=== PATIENT | male | born 1955 | race Caucasian/White ===

== ENCOUNTER → 2023-12-31 09:13 | Outpatient (REF) | payer OTHER, SELFPAY | LOC: RAD 09:13 | PROVIDERS: ATTENDING PHYSICIAN Family Medicine | DX: M54.50 Low back pain, unspecified (principal) | CPT/HCPCS: 72110 ==

== ENCOUNTER → 2024-06-19 11:01 | Outpatient (REF) | payer OTHER, SELFPAY | LOC: RCS 11:01 | PROVIDERS: ATTENDING PHYSICIAN Internal Medicine Cardiovascular Disease; FAMILY PHYSICIAN Family Medicine | DX: I48.0 Paroxysmal atrial fibrillation (principal) | CPT/HCPCS: 93306 ==

== ENCOUNTER 2024-12-15 03:21 | Emergency (ER) | payer OTHER, SELFPAY ==
[2024-12-15] VITALS (8 sets, daily range): BP systolic 117–159; BP diastolic 53–82; BMI 36.5
[2024-12-15 04:01] LABS: % Basophils 0.4 % (0-2); % Eosinophils 1.1 % (0-6); % Immature Granulocytes 0.8 % (0-0.5); % Lymphocytes 15.8 % (20.5-51.1); % Monocytes 12.6 % (1.7-9.3); % Neutrophils 69.3 % (42.2-75.2); Absolute Basophils 0.1 10^3/uL (0-0.2); Absolute Eosinophils 0.1 10^3/uL (0-0.7); Absolute Immature Granulocytes 0.1 10^3/uL (0-0.05); Absolute Lymphocytes 1.8 10^3/uL (1.2-3.4); Absolute Monocytes 1.4 10^3/uL (0.1-0.6); Absolute Neutrophils 7.8 10^3/uL (1.4-6.5); Hematocrit 47.8 % (39.0-52.0); Hemoglobin 16.2 g/dL (13.0-18.0); Mean Corp Hgb Conc. 33.9 g/dL (33.0-37.0); Mean Corpuscular Hgb 30.9 pg (27.0-31.0); Mean Corpuscular Volume 91.2 fL (80.0-94.0); Mean Platelet Volume 10.8 fL (7.4-10.4); Nucleated Red Blood Cells % 0 % (-); Platelet Count 162 10^3/uL (130-400); Red Blood Cell Count 5.24 10^6/uL (4.70-6.10); Red Cell Dist. Width 13.4 % (11.5-14.5); White Blood Cell Count 11.3 10^3/uL (4.8-10.8)
[2024-12-15 04:18] LABS: ALT (SGPT) 44 U/L (0-50); AST (SGOT) 34 U/L (17-59); Albumin 3.7 g/dl (3.5-5.0); Alkaline Phosphatase 165 U/L (38-126); Blood Urea Nitrogen 20 mg/dl (9-20); Calcium 8.9 mg/dl (8.4-10.2); Carbon Dioxide 26 mmol/L (22-30); Chloride 110 mmol/L (98-107); Glucose 121 mg/dl (70-99); Potassium 4.3 mmol/L (3.5-5.1); Sodium 142 mmol/L (135-145); Total Bilirubin 0.6 mg/dl (0.2-1.3); Total Protein 6.6 g/dl (6.3-8.2); eGFR > 60.00
[2024-12-15 04:23] LABS: Troponin I < 0.012 ng/ml
--- NOTE | 2024-12-15 06:25 | ED.GENMED ---
History of Present Illness
General
Chief Complaint: Cardiac Symptoms
Source: patient
Time Seen by Provider: 12/15/24 06:03
History of Present Illness
History of Present Illness:
69-year-old male presents to the emergency room complaining of of feeling short of breath and having pain in his anterior chest with deep inspiration. Symptoms have been present for the past couple days. Patient has diagnosis of non-small cell
lung carcinoma for which she had surgery and lymph node excision. He is not currently receiving any chemo or radiation. He describes his disease is 'in remission'. Patient denies any fever sore throat or headache. Patient took a home COVID test
which was positive.
Past History
Past History
ED Past Medical History: Arrthythmia, HTN, Hypercholesterolemia and NIDDM
ED Past Surgical History: None
Social History
Tobacco: Non-smoker
Alcohol: None
Drug: None
Personal:
Living: with family
Phy Exam
Physical Exam
Physical Exam:
General: Awake, Alert, Oriented X3. No acute distress.
Vitals: Mildly tachycardic
Head: Atraumatic
Eyes: Pupils equal, EOMI
Throat: Airway intact, no exudates
Neck: Trachea midline
Lungs: Clear and equal b/l
Heart: irregular rate, no murmurs
Abd: Soft, Nontender, No pulsatile mass
Neuro: Nonfocal
Skin: Warm, dry, no rash
Extremities: pulses equal b/l, 1+ edema
Course
Orders/Labs/Results
Orders:
Orders
12/15/24 03:24
Electrocardiogram (*1) Urgent
Reason for Study: Chest Pain
Cardiac Monitoring- Treatment ONCE
EKG- Treatment ONCE
IV Insert/Care/Rem.- Treatment PRN
O2 Therapy [RESP] Urgent
Titrate/Wean O2 to maintain O2 sat greater than (%): 90
Special Instructions: Maintain sats >/=90%
Pulse Ox/spot Check [RESP] Urgent
Quantity: 1
Special Instructions: ON ROOM AIR
12/15/24 03:36
Complete Blood Count/With Diff Urgent
Comprehensive Metabolic Panel Urgent
NT-proBNP Urgent
Comment: ADD ON
Troponin I Urgent
12/15/24 03:49
CXR2 [CR Chest - 2 Views ] Urgent
Comment:
Reason For Exam: covid + chest pain
12/15/24 06:24
Add On- LAB Urgent
Tests Added?: BNP
CT Chest PE Study Urgent
Comment:
Reason For Exam: pleuritic chest pain
12/15/24 06:25
Ketorolac [Toradol] 15 mg IV NOW STA
Abnormal Lab Results
12/15/24
03:36
WBC 11.3 H 10^3/uL
(4.8-10.8)
MPV 10.8 H fL
(7.4-10.4)
Abs Immat Gran (auto) 0.1 H 10^3/uL
(0-0.05)
Absolute Neuts (auto) 7.8 H 10^3/uL
(1.4-6.5)
Absolute Monos (auto) 1.4 H 10^3/uL
(0.1-0.6)
Immature Gran % 0.8 H %
(0-0.5)
Lymphocytes % 15.8 L %
(20.5-51.1)
Monocytes % 12.6 H %
(1.7-9.3)
Chloride 110 H mmol/L
(98-107)
Glucose 121 H mg/dl
(70-99)
Alkaline Phosphatase 165 H U/L
(38-126)
12/15/24 03:36
03/07/25 03:36
Vital Signs
Initial and Last Documented VS:
Initial Vital Signs
Temp Pulse Resp BP Pulse Ox
97.7 F 95 22 140/81 99
12/15/24 03:22 12/15/24 03:22 12/15/24 03:22 12/15/24 03:22 12/15/24 03:22
Last Documented Vital Signs
Temp Pulse Resp BP Pulse Ox
97.7 F 92 30 133/62 96
12/15/24 03:22 12/15/24 10:00 12/15/24 10:00 12/15/24 10:00 12/15/24 10:00
MDM/Problems Addressed
Differential Diagnosis Includes:
nstemi, pe, ptx, pneumonia, recurrence of cancer, pleurisy fro covid
MDM/Problems Addressed:
Patient presents with chest pain anterior and sharp. Worse with deep inspiration. EKG shows no acute ischemic changes. Labs here are all reassuring. CT of the chest shows a right sided pleural effusion which is moderate in size. Patient states
he has had imaging at [facility] which did demonstrate right pleural effusion. Unclear if it has gotten any larger. Recommend he follow-up with his doctors at [facility] so they can compare CAT scans. Patient feels better after dose of Toradol.
Chronic conditions affecting care: Cancer (Lung cancer)
*Radiology
Radiology exam reviewed: radiology read reviewed
*Pulse Oximetry
Patient hypoxic: no
*EKG
Interpreted by ED Provider?: Yes
Heart Rate: 90
Rate: normal
Rhythm: a-fib
QRS Pattern: normal QRS
Ischemia: non-specific ST changes
*Jewel Hole Gauger Interpretation
Rate: normal
Interpretation: abnormal
Rhythm: a-fib
*Critical Care Note
Total Time (30-74mins, 75-104mins- exclusive of procedures): Not Applicable
ED Attending Note
-
Portions of this chart may have been created with voice recognition software.� Occasional wrong word or��sound alike� substitutions may have occurred due to the inherent limitations of voice recognition software.
Discharge Plan
Departure
Patient Disposition: Home (Routine Discharge)
Date of Disposition: 12/15/24
Time of Disposition: 09:55
Patient with high blood pressure during this ER visit?: Yes
Condition: Good
Discharge Problem:
Chest pain, COVID, Pleurisy, Pleural effusion
Instructions: Chest Pain (DC), COVID-19 - ED discharge instructions, BLOOD PRESSURE, Pleurisy
Prescriptions:
No Action
atorvastatin 10 MG tablet
10 mg PO Q48H
lisinopril 5 MG tablet
5 mg PO BID
Xarelto 20 MG tablet
20 mg PO 1730
allopurinol 100 MG tablet
100 mg PO DAILY
metoprolol succinate 50 mg Tablet Extended Release 24 Hr
50 mg PO BID
Xalkori 250 mg Capsule
250 mg PO BID
loperamide 2 mg Tablet
2 mg PO Q6H PRN (Reason: diarrhea)
furosemide 20 mg Tablet
20 mg PO MOWEFR
albuterol 90 mcg/actuation Aerosol
2 mcg INHALATION Q4H PRN (Reason: SOB)
Referrals:
Manuel Rosa MD [Family Provider] -
Activity Restrictions/Additional Instructions:
You can take Tylenol for pain. Your CT scan here shows a pleural effusion which our radiologist describes as moderate but this is somewhat subjective. You should call your oncologist at [facility] and discuss the CT report with them so they can
determine if any further testing is needed.
Interventions
Interventions:
*Risk Screen - Suicide Last Done: 12/15/24 03:29
*General Assessment Last Done: 12/15/24 03:22
*Neglect/Abuse Screening Last Done: 12/15/24 03:29
*ED- Fall Risk Assessment Last Done: 12/15/24 03:27
*ED COVID-19 Vaccine History Last Done: 12/15/24 03:28
*Nursing Disposition Last Done: 12/15/24 10:15
ED- Cardiac Assessment Last Done: 12/15/24 07:53
ED- Pulmonary Assessment Last Done: 12/15/24 07:53
Discharge Date and Time
Discharge Date/Time: 12/15/24 10:20
Print Language: AZERI
[2024-12-15] MEDS: TORADOL 15 MG IV (07:15)
[2024-12-15 07:26] LABS: NT-proBNP 261 pg/ml
== END 2024-12-15 10:20 | disposition home or self-care (01) ==
LOC: EMR 03:21
PROVIDERS: Student in an Organized Health Care Education/Training Program; EMERGENCY PHYSICIAN Emergency Medicine; FAMILY PHYSICIAN Family Medicine
DX: U07.1 COVID-19 (principal); J90 Pleural effusion, not elsewhere classified; R07.89 Other chest pain
CPT/HCPCS: 99285; 96374; 71046; 71275; 80053; 83880; 84484; 85025; 93005; Q9967

== ENCOUNTER → 2025-02-05 09:28 | Outpatient (REF) | payer OTHER, SELFPAY | LOC: RAD 09:28 | PROVIDERS: ATTENDING PHYSICIAN Family Medicine | DX: C34.31 Malignant neoplasm of lower lobe, right bronchus or lung (principal) | CPT/HCPCS: 71250; 74176 ==

== ENCOUNTER 2025-02-07 10:49 | Emergency (ER) | payer OTHER, SELFPAY ==
[2025-02-07 10:54] VITALS: BP 135/80
[2025-02-07 11:22] VITALS: BP 123/79
[2025-02-07 11:42] LABS: % Basophils 0.6 % (0-2); % Eosinophils 2.2 % (0-6); % Immature Granulocytes 0.8 % (0-0.5); % Lymphocytes 15.2 % (20.5-51.1); % Neutrophils 71.2 % (42.2-75.2); Absolute Basophils 0.1 10^3/uL (0-0.2); Absolute Eosinophils 0.2 10^3/uL (0-0.7); Absolute Immature Granulocytes 0.1 10^3/uL (0-0.05); Absolute Lymphocytes 1.3 10^3/uL (1.2-3.4); Absolute Monocytes 0.9 10^3/uL (0.1-0.6); Absolute Neutrophils 6.1 10^3/uL (1.4-6.5); Hemoglobin 14.8 g/dL (13.0-18.0); Mean Corp Hgb Conc. 34.4 g/dL (33.0-37.0); Mean Corpuscular Hgb 30.4 pg (27.0-31.0); Mean Corpuscular Volume 88.3 fL (80.0-94.0); Mean Platelet Volume 10.3 fL (7.4-10.4); Nucleated Red Blood Cells % 0 % (-); Platelet Count 165 10^3/uL (130-400); Red Blood Cell Count 4.87 10^6/uL (4.70-6.10); Red Cell Dist. Width 13.4 % (11.5-14.5); White Blood Cell Count 8.6 10^3/uL (4.8-10.8)
[2025-02-07 11:43] LABS: Urine Albumin 2+ (Neg - Trace); Urine Bilirubin Negative (Negative); Urine Character Clear (Clear); Urine Color Yellow; Urine Glucose Negative (Negative); Urine Ketone Negative (Negative); Urine Leukocyte Negative (Negative); Urine Nitrite Negative (Negative); Urine Occult Blood 1+ (Negative); Urine Specific Gravity 1.025 (<1.030); Urine Urobilinogen Negative (Neg - 1+)
--- NOTE | 2025-02-07 11:48 | ED.GENMED ---
History of Present Illness
<Delvis Martin PA-C - Last Filed: 02/07/25 14:21>
General
Chief Complaint: Abdominal Pain
Source: patient and records
Time Seen by Provider: 02/07/25 11:00
History of Present Illness
History of Present Illness:
69-year-old male with past medical history of permanent A-fib, stage IV lung cancer (in remission), hypertension, hyperlipidemia, wgh-ohspfch-rwhqfequp diabetes who has been dealing with left flank/abdominal discomfort for 1 week, had outpatient CT
scan done 2 days ago which did not yield any pathologies, spoke with primary care provider on the phone today as well as his oncology team and was recommended to come to the ER for further evaluation. Patient denies any fevers, chills, rigors,
urinary symptoms, bowel changes, nausea, vomiting or any other concerns. He also notes he has not noticed any rashes to the affected area. States that he does have some mild chronic pain to the right flank which he states was related to his lung
resection but that this pain feels different
Past History
<Delvis Martin PA-C - Last Filed: 02/07/25 14:21>
Past History
ED Past Medical History: Arrthythmia, HTN, Hypercholesterolemia and NIDDM
ED Past Surgical History: Appendectomy, Orthopedic, Tonsilectomy and Other (Lung resection)
Social History
Tobacco: Non-smoker
Alcohol: None
Drug: None
Personal:
Living: with family
Review of Systems
<Delvis Martin PA-C - Last Filed: 02/07/25 14:21>
Review of Systems
All Other Systems: ROS reviewed and negative except as documented in HPI and ROS
Phy Exam
<Delvis Martin PA-C - Last Filed: 02/07/25 14:21>
Physical Exam
Physical Exam:
GENERAL: Alert , in no apparent distress, overweight
EYE: clear conjunctiva b/l
HEAD: NCAT
ENT: o/p clr, mmm.
CARDIAC: Irregularly irregular rate and rhythm
LUNGS: Clear breath sounds bilaterally, no acute respiratory distress, no wheezes/rales/rhonchi
ABDOMEN: Soft, without focal tenderness, no r/g, no cvat
NEUROLOGICAL: Alert and oriented
SKIN: Warm and dry, skin intact. No rashes
MUSCULOSKELETAL: No edema, well perfused.
PSYCH: Normal and appropriate interaction.
Scores
<Delvis Martin PA-C - Last Filed: 02/07/25 14:21>
Heart Failure Risk
Heart Failure Risk Score: Not Applicable
Heart Score for Chest Pain Patients
STEMI patient?: Not applicable
Withdrawal Assessment of Alcohol
Withdrawal Assessment Completed?: Not applicable
Course
<Delvis Maritn PA-C - Last Filed: 02/07/25 14:21>
Orders/Labs/Results
Orders:
Orders
02/07/25 11:32
Complete Blood Count/With Diff Urgent
Comprehensive Metabolic Panel Urgent
Lipase Urgent
Troponin I Urgent
Urinalysis Reflex To Culture Urgent
Date Specimen was Collected: 02/07/25
Time Specimen was Collected: 11:17
Urine Microscopic Reflex Cult Urgent
Abnormal Lab Results
02/07/25
11:32
Abs Immat Gran (auto) 0.1 H 10^3/uL
(0-0.05)
Absolute Monos (auto) 0.9 H 10^3/uL
(0.1-0.6)
Immature Gran % 0.8 H %
(0-0.5)
Lymphocytes % 15.2 L %
(20.5-51.1)
Monocytes % 10.0 H %
(1.7-9.3)
Chloride 110 H mmol/L
(98-107)
Glucose 111 H mg/dl
(70-99)
Total Protein 5.9 L g/dl
(6.3-8.2)
Albumin 3.3 L g/dl
(3.5-5.0)
Ur Occult Blood Reflex 1+ A
(Negative)
Urine RBC 3-6 A /HPF
(0-2)
Urine Albumin (Reflex) 2+ A
(Neg - Trace)
02/07/25 11:32
02/07/25 11:32
Vital Signs
Initial and Last Documented VS:
Initial Vital Signs
Temp Pulse Resp BP Pulse Ox
98.0 F 82 16 135/80 97
02/07/25 10:54 02/07/25 10:54 02/07/25 10:54 02/07/25 10:54 02/07/25 10:54
Last Documented Vital Signs
Temp Pulse Resp BP Pulse Ox
98.0 F 89 13 111/67 98
02/07/25 10:54 02/07/25 13:00 02/07/25 13:00 02/07/25 13:00 02/07/25 12:45
[place];Gordon Jones, DO - Last Filed: 02/07/25 15:29>
Orders/Labs/Results
Orders:
Orders
02/07/25 11:32
Complete Blood Count/With Diff Urgent
Comprehensive Metabolic Panel Urgent
Lipase Urgent
Troponin I Urgent
Urinalysis Reflex To Culture Urgent
Date Specimen was Collected: 02/07/25
Time Specimen was Collected: 11:17
Urine Microscopic Reflex Cult Urgent
Abnormal Lab Results
02/07/25
11:32
Abs Immat Gran (auto) 0.1 H 10^3/uL
(0-0.05)
Absolute Monos (auto) 0.9 H 10^3/uL
(0.1-0.6)
Immature Gran % 0.8 H %
(0-0.5)
Lymphocytes % 15.2 L %
(20.5-51.1)
Monocytes % 10.0 H %
(1.7-9.3)
Chloride 110 H mmol/L
(98-107)
Glucose 111 H mg/dl
(70-99)
Total Protein 5.9 L g/dl
(6.3-8.2)
Albumin 3.3 L g/dl
(3.5-5.0)
Ur Occult Blood Reflex 1+ A
(Negative)
Urine RBC 3-6 A /HPF
(0-2)
Urine Albumin (Reflex) 2+ A
(Neg - Trace)
02/07/25 11:32
02/07/25 11:32
Vital Signs
Initial and Last Documented VS:
Initial Vital Signs
Temp Pulse Resp BP Pulse Ox
98.0 F 82 16 135/80 97
02/07/25 10:54 02/07/25 10:54 02/07/25 10:54 02/07/25 10:54 02/07/25 10:54
Last Documented Vital Signs
Temp Pulse Resp BP Pulse Ox
98.0 F 89 13 111/67 98
02/07/25 10:54 02/07/25 13:00 02/07/25 13:00 02/07/25 13:00 02/07/25 12:45
<Delvis Martin PA-C - Last Filed: 02/07/25 14:21>
MDM/Problems Addressed
Differential Diagnosis Includes:
Renal/ureteral colic, muscular etiology, atypical ACS presentation, overall minimal concern for any GI pathology given recent CT scan 2 days ago which did not yield any acute abnormalities
MDM/Problems Addressed:
69-year-old male presenting to the emergency department for evaluation of left-sided flank and abdominal pain, had CT scan done here as an outpatient which did not yield any acute abnormalities. Primary care and patient's oncology team recommended
he come to the ER for further evaluation. No fevers, patient is otherwise very well-appearing. Has a history of chronic A-fib, doubt atypical ACS presentation but given continued symptoms will check troponin EKG. Chemistry and urine ordered.
Will touch base with patient's primary to discuss further workup planning and likely need for continued outpatient management
Chronic conditions affecting care: Cancer
<Delvis Martin PA-C - Last Filed: 02/07/25 14:21>
*Pulse Oximetry
Patient hypoxic: no
*Critical Care Note
Total Time (30-74mins, 75-104mins- exclusive of procedures): Not Applicable
Data Reviewed
Review of Other/Old Records Reveals: Records and Radiology Studies
<Delvis Martin PA-C - Last Filed: 02/07/25 14:21>
Patient Management
Discussion with other providers: PCP
Escalation/DeEscalation of care consider admission/obs:
Patient's workup is largely unremarkable for any acute pathologies. I did reach out to patient's primary care provider via [facility] text and notified them of workup and that patient would need further outpatient monitoring/evaluation. Patient
advised on return precautions to the ER but otherwise stable for discharge home.
ED Attending Note
<Delvis Martin PA-C - Last Filed: 02/07/25 14:21>
-
Portions of this chart may have been created with voice recognition software.� Occasional wrong word or��sound alike� substitutions may have occurred due to the inherent limitations of voice recognition software.
<Gordon Jones DO - Last Filed: 02/07/25 15:29>
ED Attending Note
Patient seen and examined by attending physician: Yes
ED Attending Note:
I have reviewed and agree with history and treatment plan by José Miguel Mindlin. My exam reveals 69-year-old male no acute distress. Suspect likely musculoskeletal cause of flank pain. CT chest abdomen pelvis no acute findings.
Discharge Plan
Departure
Patient Disposition: Home (Routine Discharge)
Date of Disposition: 02/07/25
Time of Disposition: 12:52
Patient with high blood pressure during this ER visit?: No
Discharge Problem:
Left flank pain
Instructions: Abdominal Pain
Prescriptions:
No Action
atorvastatin 10 MG tablet
10 mg PO Q48H
lisinopril 5 MG tablet
5 mg PO BID
Xarelto 20 MG tablet
20 mg PO 1730
allopurinol 100 MG tablet
100 mg PO DAILY
metoprolol succinate 50 mg Tablet Extended Release 24 Hr
50 mg PO BID
Xalkori 250 mg Capsule
250 mg PO BID
loperamide 2 mg Tablet
2 mg PO Q6H PRN (Reason: diarrhea)
furosemide 20 mg Tablet
20 mg PO MOWEFR
albuterol 90 mcg/actuation Aerosol
2 mcg INHALATION Q4H PRN (Reason: SOB)
Referrals:
Manuel Rosa MD [Family Provider] -
Interventions
Interventions:
*Risk Screen - Suicide Last Done: 02/07/25 11:35
*General Assessment Last Done: 02/07/25 11:35
*Neglect/Abuse Screening Last Done: 02/07/25 11:35
*ED- Fall Risk Assessment Last Done: 02/07/25 11:35
*ED COVID-19 Vaccine History Last Done: 02/07/25 11:35
*Nursing Disposition Last Done: 02/07/25 13:17
HK-Fpbazh-Xknaqgypgs Assessment Last Done: 02/07/25 11:35
Discharge Date and Time
Discharge Date/Time: 02/07/25 13:18
Print Language: IRISH
[2025-02-07 11:58] LABS: Urine Mucus Few
[2025-02-07 11:59] LABS: Urine White Cell 0-2 /HPF (0-5)
[2025-02-07 12:00] VITALS: BP 109/68
[2025-02-07 12:04] LABS: ALT (SGPT) 36 U/L (0-50); AST (SGOT) 35 U/L (17-59); Albumin 3.3 g/dl (3.5-5.0); Alkaline Phosphatase 119 U/L (38-126); Blood Urea Nitrogen 18 mg/dl (9-20); Calcium 8.9 mg/dl (8.4-10.2); Carbon Dioxide 22 mmol/L (22-30); Chloride 110 mmol/L (98-107); Glucose 111 mg/dl (70-99); Lipase 191 U/L (23-300); Potassium 4.2 mmol/L (3.5-5.1); Sodium 138 mmol/L (135-145); Total Bilirubin 0.5 mg/dl (0.2-1.3); Total Protein 5.9 g/dl (6.3-8.2); eGFR > 60.00
[2025-02-07 12:07] LABS: Troponin I < 0.012 ng/ml
[2025-02-07 13:00] VITALS: BP 111/67
== END 2025-02-07 13:18 | disposition home or self-care (01) ==
LOC: EMR 10:49
PROVIDERS: Physician Assistant Medical; EMERGENCY PHYSICIAN Emergency Medicine; FAMILY PHYSICIAN Family Medicine
DX: R10.9 Unspecified abdominal pain (principal); I48.21 Permanent atrial fibrillation; I10 Essential (primary) hypertension; E78.00 Pure hypercholesterolemia, unspecified; E11.9 Type 2 diabetes mellitus without complications; Z90.49 Acquired absence of other specified parts of digestive tract
CPT/HCPCS: 99283; 80053; 81003; 81015; 83690; 84484; 85025

== ENCOUNTER → 2025-02-09 11:30 | Outpatient (REF) | payer OTHER, SELFPAY | LOC: RAD 11:30 | PROVIDERS: ATTENDING PHYSICIAN Family Medicine | DX: M54.6 Pain in thoracic spine (principal) | CPT/HCPCS: 72072 ==

== ENCOUNTER 2025-03-18 04:52 | Inpatient (IN) | payer OTHER, SELFPAY ==
[2025-03-17 21:27] VITALS: BP 168/99; BMI 38.5
[2025-03-17 21:30] VITALS: BP 168/99
[2025-03-17 22:00] VITALS: BP 147/87
[2025-03-17] MEDS: REGLAN 10 MG IV (23:18)
[2025-03-17 23:34] LABS: % Basophils 0.4 % (0-2); % Eosinophils 0.4 % (0-6); % Immature Granulocytes 0.8 % (0-0.5); % Lymphocytes 12.3 % (20.5-51.1); % Monocytes 8.2 % (1.7-9.3); % Neutrophils 77.9 % (42.2-75.2); Absolute Immature Granulocytes 0.1 10^3/uL (0-0.05); Absolute Lymphocytes 1.3 10^3/uL (1.2-3.4); Absolute Monocytes 0.9 10^3/uL (0.1-0.6); Absolute Neutrophils 8.4 10^3/uL (1.4-6.5); Hematocrit 49.1 % (39.0-52.0); Hemoglobin 16.7 g/dL (13.0-18.0); Mean Corpuscular Volume 88.2 fL (80.0-94.0); Mean Platelet Volume 11.4 fL (7.4-10.4); Nucleated Red Blood Cells % 0 % (-); Platelet Count 177 10^3/uL (130-400); Red Blood Cell Count 5.57 10^6/uL (4.70-6.10); Red Cell Dist. Width 13.6 % (11.5-14.5); White Blood Cell Count 10.8 10^3/uL (4.8-10.8)
[2025-03-17 23:43] LABS: ALT (SGPT) 41 U/L (0-50); AST (SGOT) 41 U/L (17-59); Albumin 4.2 g/dl (3.5-5.0); Alkaline Phosphatase 121 U/L (38-126); Blood Urea Nitrogen 16 mg/dl (9-20); Calcium 9.5 mg/dl (8.4-10.2); Carbon Dioxide 28 mmol/L (22-30); Chloride 107 mmol/L (98-107); Estimated Creatinine Clearance 90 ml/min; Glucose 134 mg/dl (70-99); Lipase 109 U/L (23-300); Potassium 4.5 mmol/L (3.5-5.1); Sodium 142 mmol/L (135-145); Total Bilirubin 0.8 mg/dl (0.2-1.3); Total Protein 7.3 g/dl (6.3-8.2); eGFR > 60.00
--- NOTE | 2025-03-17 23:48 | ED.GENMED ---
History of Present Illness
General
Chief Complaint: Change in Mental Status
Source: patient
Exam Limitations: none
Time Seen by Provider: 03/17/25 22:17
Nursing documentation reviewed up to this point in time: agreed with
History of Present Illness
History of Present Illness:
69-year-old male past medical history of A-fib hypertension hyperlipidemia, diabetes presenting to the emergency department with concerns of altered mental status not acting self according to the seems to be clammy also had an episode of
vomiting. Recently had COVID.
Past History
Past History
ED Past Medical History: Arrthythmia, HTN, Hypercholesterolemia and NIDDM
ED Past Surgical History: Appendectomy, Orthopedic, Tonsilectomy and Other (Lung resection)
Social History
Tobacco: Non-smoker
Alcohol: None
Drug: None
Personal:
Living: with family
Review of Systems
Review of Systems
Allergies reviewed?: Yes
All Other Systems: ROS reviewed and negative except as documented in HPI and ROS
Phy Exam
Physical Exam
Physical Exam:
GENERAL: Alert , in no apparent distress
EYE: pupils equal and reactive
NECK: Supple, no significant adenopathy.
ENT: o/p clr, mmm.
CARDIAC: Regular rate and rhythm .
LUNGS: Clear breath sounds bilaterally, no acute respiratory distress, no wheezes/rales/rhonchi
ABDOMEN: Soft, without focal tenderness, no r/g, no cvat
NEUROLOGICAL: Alertno focal neuro deficits
SKIN: Warm and dry, skin intact.
MUSCULOSKELETAL: No edema, well perfused.
PSYCH: Normal and appropriate interaction.
Course
Orders/Labs/Results
Orders:
Orders
03/17/25 21:38
EKG [Electrocardiogram (*1)] Urgent
Reason for Study: Atrial Fibrillation
03/17/25 21:39
EKG- Treatment ONCE
03/17/25 22:27
CT Head W/o Iv Contrast Urgent
Comment:
Reason For Exam: headache
Urinalysis Reflex To Culture Urgent
Date Specimen was Collected: 03/18/25
Time Specimen was Collected: 00:14
Metoclopramide [Reglan] 10 mg IV NOW STA
03/17/25 23:20
Complete Blood Count/With Diff Urgent
Comprehensive Metabolic Panel Urgent
Lipase Urgent
TSH Reflex To Free T4 Urgent
03/18/25 00:15
Urine Drug Abuse Screen Routine
Date Specimen was Collected: 03/18/25
Time Specimen was Collected: 08:12
Urine Microscopic Reflex Cult Urgent
03/18/25 04:25
COVID-19 Antigen Stat
Source: Nasal Swab
03/18/25 04:34
Admit/Transfer Patient As Directed
Co-Sign Provider:
Level of Care: Inpatient admission
Assign to:: Telemetry
Physician / Group: Satya
Diagnosis: Altered mental status
Reason for Telemetry: Syncope
Date to Stop Telemetry: 03/20/25
Time to Stop Telemetry: 11:00
Reason for Hospitalization: Altered mental status
Expected length of stay greater than two midnights?: Yes
ELOS- Estimated Length of Stay in days: 2
I certify the patient meets the requirements for IP care: Yes
PRN Pain Medication Management As Directed
May give lesser potent ordered pain med per pt: Yes
preference::
Protocol:: Medication orders for pain may be administered in a
manner that supports deferring to patient preference
when the pt is:
- Requesting an ordered lesser potent pain medication.
Least to most potent pain medications are defined
as: acetaminophen < NSAID < tramadol < opioids
(morphine, oxycodone, hydromorphone).
- Requesting a lesser dose of the same medication IF
ORDERED.
- Requesting a less intrusive route of administration
if both routes are prescribed by the provider (PO <
IV).
03/18/25 04:36
Code Status As Directed
Resuscitation Status: Full Code
03/18/25 Breakfast
Cholesterol Lowering
At Your Request: Limited, Repair Tech Required
Cholesterol Lowering: Sodium, 2 Gram
03/18/25 07:33
Acetaminophen [Tylenol] 650 mg PO Q4HPRN PRN
Ondansetron Injectable [Zofran] 4 mg IV Q6HPRN PRN
Polyethylene Glycol Powder [Miralax] 17 grams PO DAILYPRN PRN
03/18/25 07:33
Consult Notification Routine
Specialty to Notify: Neurology
Date consulting provider notified: 03/18/25
Time consulting provider notified: 07:55
Notified:: Provider
Comment: TT'd Physician Obn-Call(Mary Alice)
NEUROLOGY CONSULT Routine
Consulting Provider: Luis A Wheat
Was physician already notified: No
Reason for consult: altered ms uncertain etiology
VTE Contraindication Routine
VTE Mechanical Device Contraindication: Medical Contraindication
Pharmocologic Contraindication: Medical Contraindication
MRI Brain [MR Brain Without Contrast] Routine
Comment:
Reason For Exam: rule out multifocal embolic cva, metastatic lesion
Recent pill cam endoscopy?: No
Activity As Directed
Activity Level: With Assistance
Neurological Checks As Directed
Frequency: Per unit guidelines
Orthostatic Vital Signs As Directed
Orthostatic VS Frequency: Daily
Vital Signs As Directed
Frequency: Per unit guidelines
Pulse Ox/spot Check [RESP] Routine
Quantity: 1
03/18/25 08:00
Allopurinol [Zyloprim] 100 mg PO DAILY
Atorvastatin [Lipitor] 10 mg PO Q48H
Lisinopril [Zestril] 5 mg PO BID
Metoprolol Xl [Toprol Xl] 50 mg PO BID
03/18/25 17:30
Rivaroxaban [Xarelto] 20 mg PO 1730
03/18/25 20:00
crizotinib [Xalkori] See Dose Instructions PO BID
03/19/25 05:40
Ammonia IN AM
Complete Blood Count/No Diff IN AM
ESR [Erythrocyte Sed Rate] IN AM
Hemoglobin A1c [Glycohemoglobin (HgbA1c)] IN AM
Prothrombin Time IN AM
03/19/25 05:41
Basic Metabolic Panel IN AM
Cardiovascular Evaluation IN AM
Ceruloplasmin [S] IN AM
HIV 4th Generation [HIV Combo] IN AM
Lyme Progressive IN AM
Magnesium IN AM
Monotest IN AM
RPR [Syphilis/T. pallidum Ab Reflex] IN AM
Vitamin B12 IN AM
03/20/25 11:00
DC Protocol for Telemetry ONCE
Abnormal Lab Results
03/17/25 03/18/25
23:20 00:15
MPV 11.4 H fL
(7.4-10.4)
Abs Immat Gran (auto) 0.1 H 10^3/uL
(0-0.05)
Absolute Neuts (auto) 8.4 H 10^3/uL
(1.4-6.5)
Absolute Monos (auto) 0.9 H 10^3/uL
(0.1-0.6)
Immature Gran % 0.8 H %
(0-0.5)
Neutrophils % 77.9 H %
(42.2-75.2)
Lymphocytes % 12.3 L %
(20.5-51.1)
Glucose 134 H mg/dl
(70-99)
Ur Occult Blood Reflex 1+ A
(Negative)
Urine Albumin (Reflex) 2+ A
(Neg - Trace)
06/07/25 23:20
03/17/25 23:20
Vital Signs
Initial and Last Documented VS:
Initial Vital Signs
Temp Pulse BP Pulse Ox
98.6 F 116 168/99 98
03/17/25 21:27 03/17/25 21:27 03/17/25 21:27 03/17/25 21:27
Last Documented Vital Signs
Temp Pulse Resp BP Pulse Ox
98.6 F 83 18 153/75 96
03/19/25 03:16 03/19/25 03:16 03/19/25 03:16 03/19/25 03:16 03/19/25 03:16
MDM/Problems Addressed
MDM/Problems Addressed:
69-year-old male presenting to the emergency department with concerns of not acting his normal self. He also appeared clammy at her vomited 1 time today. On arrival tachycardic otherwise vital signs normal patient no distress but does seem to
be repeating himself he is able to answer all basic questions. Labs unremarkable urinalysis normal. Unclear cause of altered mental status. Patient is repetitively asking questions and clearly confused considering this profound change plan to
admit for further assessment.
*Critical Care Note
Total Time (30-74mins, 75-104mins- exclusive of procedures): Not Applicable
ED Attending Note
-
Portions of this chart may have been created with voice recognition software.� Occasional wrong word or��sound alike� substitutions may have occurred due to the inherent limitations of voice recognition software.
Discharge Plan
Departure
Patient Disposition: Admit
Admit to: Telemetry
Admit to doctor: Satya
Presentation/result/management discussed w/ accepting MD/DO: Hospitalist
Patient with high blood pressure during this ER visit?: No
Condition: Good
Covid-19: Not Applicable
Discharge Problem:
AMS (altered mental status)
Interventions
Interventions:
*Risk Screen - Suicide Last Done: 03/17/25 21:27
*General Assessment Last Done: 03/17/25 21:27
*Neglect/Abuse Screening Last Done: 03/17/25 21:27
*ED- Fall Risk Assessment Last Done: 03/17/25 21:27
*ED COVID-19 Vaccine History Last Done: 03/17/25 21:27
*Nursing Disposition Last Done: 03/18/25 07:25
ED- Neurological Assessment Last Done: 03/18/25 07:00
ED- Cardiac Assessment Last Done: 03/18/25 07:00
ED Swallowing Screen Last Done: 03/18/25 00:00
Discharge Date and Time
Discharge Date/Time: 03/18/25 07:25
[2025-03-18] VITALS (10 sets, daily range): BP systolic 126–149; BP diastolic 49–88; BMI 36.1
[2025-03-18 00:13] LABS: TSH Reflex To Free T4 1.12 uIU/ml (0.47-4.68)
[2025-03-18 00:31] LABS: Urine Albumin 2+ (Neg - Trace); Urine Bilirubin Negative (Negative); Urine Character Clear (Clear); Urine Color Amber; Urine Glucose Negative (Negative); Urine Ketone Negative (Negative); Urine Leukocyte Negative (Negative); Urine Nitrite Negative (Negative); Urine Occult Blood 1+ (Negative); Urine Urobilinogen Negative (Neg - 1+)
[2025-03-18 00:44] LABS: Urine Granular Cast 0-2 /LPF (0); Urine Red Blood Cell 0-2 /HPF (0-2); Urine White Cell None Seen /HPF (0-5)
--- NOTE | 2025-03-18 03:50 | HPS.HSE ---
Family Physician
-
Family Physician: NOT KNOW UNKNOWN - PT DOES
Chief Complaint
-
Altered mental status
History of Present Illness
This is a 69-year-old with past medical history of metastatic small cell lung cancer status post biopsy and lymph node dissection and in remission for 25 years, hypertension, hyperlipidemia, atrial fibrillation on anticoagulation with rivaroxaban
presenting to the emergency department with altered mental status.
Spouse able to provide history although patient cannot provide some history as well. He apparently was at a gathering about 2 weeks ago. After coming home he contracted COVID-19. Patient said that he completed a course of treatment with a
molnupiravir 2 days ago. He has not had any fevers or chills. He has not been coughing. He denies any shortness of breath. He denies any abdominal pain. According to spouse over the last 3 to 4 days he has been having memory lapses. He has
been having confusion. Today the patient was sitting on his table when he said he was unable to see clearly. He also said he was going to pass out. His spouse came to him to bring him from falling. He did not have a syncopal episode. He did
become nauseous and had 1 episode of vomiting. Patient reports intermittent headache and spouse has given him Tylenol during the day. He denies any focal weakness. He denies any focal numbness or tingling. He denies having any back pain. He
denies any stiff neck. He denies any changes to the color of his urine skin or eyes.
Patient denies any new medications ordered and the medication for COVID-19 diarrhea just finished.
On arrival in the emergency department he was afebrile, blood pressure was 144/74 with a pulse of 95 satting 99% on room air.
CBC was completely normal. Electrolytes BUN/creatinine were completely normal. UA was negative. TSH was normal. Head CT shows no acute interval changes. Chest x-ray clear.
Medical History
Past Medical History
Past Medical History: Reports Other
Additional Past Medical History:
Proximal atrial fibrillation
Hypertension
Hyperlipidemia
Grb-lmkmalk-zszfkybxl diabetes
Past Surgical History: Reports Other
Additional Past Surgical History:
Appendectomy
Tonsillectomy
History of lung resection
Social History
Tobacco: Former Smoker
Alcohol: None
Drug: None
Personal:
Living: With Family
Employment: Employed
Family History
Family History: Not pertinent
Allergies / Home Medications
Allergies reflects when Allergies were last updated in [employer].
Home Medications with original date entered in [employer]
Allergy/Medication List:
Allergies
Allergy/AdvReac Type Severity Reaction Status Date / Time
codeine AdvReac nervous/anx Verified 02/07/25 10:56
ious
Home Medications
atorvastatin 10 mg tablet 10 mg PO Q48H 05/29/19
lisinopril 5 mg tablet 5 mg PO BID 05/29/19
rivaroxaban 20 mg tablet (Xarelto) 20 mg PO 1730 08/01/19
allopurinol 100 mg tablet 100 mg PO DAILY 03/25/22
metoprolol succinate 50 mg tablet,extended release 24 hr 50 mg PO BID 06/03/22
crizotinib 250 mg capsule (Xalkori) 250 mg PO BID 08/31/22
Review of Systems
-
History Source: Patient and Family
Constitutional: Reports No Symptoms
EENT: Reports No Symptoms
Respiratory: Reports No Symptoms
Cardiac: Reports No Symptoms
Abdomen/GI: Reports Nausea and Vomiting
: Reports No Symptoms
Musculoskeletal: Reports No Symptoms
Skin: Reports No Symptoms
Neurological: Reports Other (confusion, memory difficulty)
Endocrine: Reports No Symptoms
Hematologic/Lymphatic: Reports No Symptoms
Psych: Reports No Symptoms
Physical Exam
Vital Signs
Vital Signs
Temp Pulse Resp BP Pulse Ox
98.6 F 95 17 144/74 94
03/17/25 21:27 03/18/25 03:00 03/18/25 03:00 03/18/25 03:00 03/18/25 03:00
Physical Exam
General: Well Developed, Well Nourished, No Apparent Distress and Comfortable
HEENT: NormoCephalic, Anicteric, Moist mucous membranes, Atraumatic, PERRLA and Neck Nontender; No Pharyngeal Erythema or Oxygen
Respiratory: Clear
Cardiac: S1/S2 and Irregular Rhythm
Breast: Deferred by me
GI: Soft, Non Tender, Non Distended and Normal Bowel Sounds
Rectal: Deferred by Provider
Genito-urinary: Deferred by me
Musculoskeletal: No Clubbing, No Cyanosis and No Edema
Skin: Warm
Neuro: Alert, Oriented (Oriented to person and place but not year) and Nonfocal/grossly intact
Hematologic/Lymphatic: No Lymphadenopathy
Psych: Calm
Laboratory Results
-
03/17/25 23:20
03/17/25 23:20
Laboratory Results
Total Bilirubin 0.8 mg/dl (0.2-1.3) 03/17/25 23:20
AST 41 U/L (17-59) 03/17/25 23:20
ALT 41 U/L (0-50) 03/17/25 23:20
Alkaline Phosphatase 121 U/L (38-126) 03/17/25 23:20
Lipase 109 U/L (23-300) 03/17/25 23:20
Data Reviewed
-
CT Scan: Report Reviewed by me
Lab Data: Labs Reviewed by me
Old Records: Reviewed
Impression/Plan
-
IMPRESSION:
69-year-old with past medical history significant for atrial fibrillation on rivaroxaban, hyperlipidemia, hypertension, history of non-small cell lung cancer status post lymph node dissection and currently in remission on crizotinib, prior tobacco
use, no alcohol or drug use presents to the emergency department with few days of increasing altered mental status. He has had memory difficulties. He seems to have clouded sensorium. He answers mostly appropriately but is slower to respond. He
has no focal neurological deficits. There are no meningeal signs. Today felt lightheaded and nauseous and felt he was going to pass out but did not. In the emergency department he is hemodynamically stable afebrile. Vital signs are unremarkable.
Electrolytes BUN/creatinine LFTs were all normal. CBC was normal. UA was negative. He has just completed a course of molnupiravir for COVID-19 infection and spouse reports that the patient has had recurrent episodes of COVID infection x 4. On
my examination is nonfocal, slow to respond and slight slowing of his speech. Differential diagnosis here includes small bowel multifocal embolic infarct, toxic metabolic encephalopathy from an infection versus an encephalitis.
PLAN:
1. Altered mental status.
- admit to telemetry for now
- MRI in am to rule out multifocal infarcts or new metastatic disease
- rule out ongoing COVID 19 infection
- checking rpr, lyme screen, EBV, HIV
- UDS
- normal tsh, normal lfts
- if above are all normal will need LP
- no indication for abx at this time
- neurology consultation
2. AFIB - Rate controlled afib currently
- continue Xarelto
- continue metoprolol
3. Presyncope - No syncopal episode, HD stable. rate controlled afib
- telemetry
- check orthostatics
- continue his lisinopril and metoprolol for now
Will continue his usual medications
DVT PPX- on Xarelto
Code status - Full Code
[2025-03-18 04:51] LABS: COVID-19 Antigen Negative (Negative)
[2025-03-18] MEDS: ZYLOPRIM 100 MG PO (09:07)
[2025-03-18] MEDS: LIPITOR 10 MG PO (09:07)
[2025-03-18] MEDS: TOPROL XL 50 MG PO ×2 (09:07→20:00)
[2025-03-18] MEDS: ZESTRIL 5 MG PO ×2 (09:07→20:01)
[2025-03-18 09:11] LABS: Amphetamines Negative (Negative); Barbiturates Negative (Negative); Benzodiazepines Negative (Negative); Buprenorphine Negative (Negative); Cocaine Negative (Negative); Marijuana Negative (Negative); Methadone Negative (Negative); Methamphetamines Negative (Negative); Opiates Negative (Negative); Phencyclidine Negative (Negative); Tricyclic Antidepressants Negative (Negative)
--- NOTE | 2025-03-18 10:13 | W.PN.UPDATE ---
Update Note
Progress Note Update
And examined remains confused thinks it is 1971. States that he is at [facility] in [place]
Telemetry reviewed and atrial fibrillation, confirmed by palpation. Check EKG
MRI pending. CT reviewed without acute intracranial abnormality. Neurology consulted
Hypertension continue antihypertensives
Atrial fibrillation continue metoprolol and Xarelto
--- NOTE | 2025-03-18 14:05 | CM ---
Initial assessment completed with pt at bedside.
Pt is a 69yr old male admitted with change in mental status.
At baseline, pt lives with his in a 1 story home with 5ste.
Pt is indep at baseline with mobility and ADLs.
Pt has a cane and a built in shower bench and a bar.
Pt has had VN after a workman's comp event last year, but does not recall the company.
Pt has no hx of SNF
PCP; Dr. Rosa
Pharm; [facility]
PLAN; TBD
--- NOTE | 2025-03-18 17:57 | CON.NEURO ---
Neuro Assessment/Plan
Assessment
Brain MRI imgs rev'd with patient and family, numerous emboli in the posterior circulation distribution most notably left cerebellum, left polly, right thalamus, and other areas
CTA ordered and reviewed with patient and family, pointing out bilateral V4 occlusion, basilar artery supplied retrograde.
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
and just adding ASA 81 and increasing Lipitor. Their questions re: stenting, patients treated medically have a 30 day stroke risk of 6% vs patient 14% with a stent; if he were to stroke on medical therapy there is no consensus regarding stenting,
however I would still recommend continuing medical therapy given the lower stroke risk
while no cognitive areas were affected, he does have baseline debility and I suspect cognitive decline, which has been decompensated from the stroke
the above was discussed with family, explained multiple times that I would not recommend stenting him under any circumstances based on evidence and his clinical condition if he were to stroke again
Plan
ASA 81
Lipitor 80
Xarelto
Consultation
Order
Date of Consultation: 03/18/25
Requesting Provider: Ihsan Mendez
Reason for Consult: Stroke
Subjective/Objective
Subjective Data
Date of Service: March 18, 2025
from h&p:
This is a 69-year-old with past medical history of metastatic small cell lung cancer status post biopsy and lymph node dissection and in remission for 25 years, hypertension, hyperlipidemia, atrial fibrillation on anticoagulation with rivaroxaban
presenting to the emergency department with altered mental status.
Spouse able to provide history although patient cannot provide some history as well. He apparently was at a gathering about 2 weeks ago. After coming home he contracted COVID-19. Patient said that he completed a course of treatment with a
molnupiravir 2 days ago. He has not had any fevers or chills. He has not been coughing. He denies any shortness of breath. He denies any abdominal pain. According to spouse over the last 3 to 4 days he has been having memory lapses. He has
been having confusion. Today the patient was sitting on his table when he said he was unable to see clearly. He also said he was going to pass out. His spouse came to him to bring him from falling. He did not have a syncopal episode. He did
become nauseous and had 1 episode of vomiting. Patient reports intermittent headache and spouse has given him Tylenol during the day. He denies any focal weakness. He denies any focal numbness or tingling. He denies having any back pain. He
denies any stiff neck. He denies any changes to the color of his urine skin or eyes.
Objective Data
Vital Signs
Temp Pulse Resp BP Pulse Ox
36.9 C 109 18 131/78 98
03/18/25 11:47 03/18/25 11:47 03/18/25 11:47 03/18/25 11:47 03/18/25 11:47
Lab Results
03/17/25 23:20
03/17/25 23:20
Sodium 142 mmol/L (135-145) 03/17/25 23:20
Potassium 4.5 mmol/L (3.5-5.1) 03/17/25 23:20
BUN 16 mg/dl (9-20) 03/17/25 23:20
Glucose 134 mg/dl (70-99) H 03/17/25 23:20
Calcium 9.5 mg/dl (8.4-10.2) 03/17/25 23:20
Ur Buprenorphine Negative (Negative) 03/18/25 00:15
Patient Allergies
codeine Adverse Reaction (Verified 02/07/25 10:56)
nervous/anxious
CVA Assessment
NIH Stroke Score
Level of Consciousness: 0 - Alert
LOC Questions: 1-Answers one correctly
LOC Commands: 0-Performs both correctly
Best Horizontal Gaze: 0-Normal
Visual Fuentes: 0=Normal, no visual loss
Facial Palsy: 2=Partial paralysis
Motor - Right Arm: 0=No drift 10 seconds
Motor - Left Arm: 0=No drift 10 seconds
Motor - Right Le-No drift 5 seconds
Motor - Left Le-No drift 5 seconds
Limb Ataxia: 0-Absent
Sensation: 0-Normal
Best Language: 1-Mild aphasia
Dysarthria: 1-Mild slurring
Extinction and Inattention: 0-No abnormality
NIH Total Score:: 5
Tenecteplase Contraindications
Reasons for NON-Tx with Thrombolytics ABSOLUTE Exclusions: Time-out of window
Physical Exam
-
Awake and alert, slow to process, mild aphasia, mild dysarthria
left facial droop
full strength b/l UE/LE
sensation intact to touch/pin
Medications
-
Active Medications
Generic Name Dose Route Start Last Admin
Trade Name Freq PRN Reason Stop Dose Admin
Acetaminophen 650 mg 03/18/25 07:33
Acetaminophen 325 Mg Tablet PO 04/15/25 07:32
Q4HPRN PRN
mild pain/PRADHAN/temp> 100.4F
Allopurinol 100 mg 03/18/25 08:00 03/18/25 09:07
Allopurinol 100 Mg Tablet PO 04/15/25 07:59 100 mg
DAILY ЕЛЕНА Administration
Atorvastatin Calcium 10 mg 03/18/25 08:00 03/18/25 09:07
Atorvastatin (Lipitor) 10 Mg Tablet PO 04/15/25 07:59 10 mg
Q48H ЕЛЕНА Administration
Lisinopril 5 mg 03/18/25 08:00 03/18/25 09:07
Lisinopril 5 Mg Tablet PO 04/15/25 07:59 5 mg
BID ЕЛЕНА Administration
Metoprolol Succinate 50 mg 03/18/25 08:00 03/18/25 09:07
Metoprolol 50 Mg Extended Release Tablet PO 04/15/25 07:59 50 mg
BID ЕЛЕНА Administration
Crizotinib [Xalkori] 0 mg 03/18/25 20:00
250 Mg Capsule Po PO 04/15/25 19:59
Bid BID ЕЛЕНА
Ondansetron HCl 4 mg 03/18/25 07:33
Ondansetron 4 Mg/2 Ml Vial IV 04/15/25 07:32
Q6HPRN PRN
nausea and vomiting
Polyethylene Glycol 17 grams 03/18/25 07:33
Polyethylene Glycol Powder 17 Grams Packet PO 04/15/25 07:32
DAILYPRN PRN
constipation
Rivaroxaban 20 mg 03/18/25 17:30
Rivaroxaban 20 Mg Tablet PO 04/15/25 17:29
1730 ЕЛЕНА
Sodium Chloride 0 flush 03/18/25 06:00
Sodium Chloride 0.9% (Flush) Syringe IV 04/15/25 05:59
PER PROTOCOL ЕЛЕНА
Home Medications
�Medication �Instructions �Recorded
atorvastatin 10 mg tablet 10 mg PO Q48H 05/29/19
lisinopril 5 mg tablet 5 mg PO BID 05/29/19
rivaroxaban 20 mg tablet (Xarelto) 20 mg PO 1730 08/01/19
allopurinol 100 mg tablet 100 mg PO DAILY 03/25/22
metoprolol succinate 50 mg 50 mg PO BID 06/03/22
tablet,extended release 24 hr
crizotinib 250 mg capsule (Xalkori) 250 mg PO BID 08/31/22
albuterol 90 mcg/actuation aerosol 2 mcg inhalation Q4H PRN SOB 12/15/24
inhaler
furosemide 20 mg tablet 20 mg PO MOWEFR 12/15/24
loperamide 2 mg tablet 2 mg PO Q6H PRN diarrhea 12/15/24
[2025-03-18] MEDS: ASPIR LOW (ENTERIC COATED) 81 MG PO (18:18)
[2025-03-18] MEDS: XARELTO 20 MG PO (18:18)
[2025-03-18] MEDS: LIPITOR 80 MG PO (18:18)
[2025-03-18] MEDS: NON-FORMULARY ITEM 250 MG PO (20:01)
[2025-03-19] VITALS (9 sets, daily range): BP systolic 90–153; BP diastolic 44–108
[2025-03-19 05:55] LABS: Hematocrit 43.7 % (39.0-52.0); Hemoglobin 14.7 g/dL (13.0-18.0); Mean Corp Hgb Conc. 33.6 g/dL (33.0-37.0); Mean Corpuscular Hgb 30.1 pg (27.0-31.0); Mean Corpuscular Volume 89.4 fL (80.0-94.0); Mean Platelet Volume 10.3 fL (7.4-10.4); Platelet Count 142 10^3/uL (130-400); Red Blood Cell Count 4.89 10^6/uL (4.70-6.10); Red Cell Dist. Width 13.3 % (11.5-14.5); White Blood Cell Count 11.1 10^3/uL (4.8-10.8)
[2025-03-19 06:08] LABS: PT 27.9 Sec (11.4-14.6)
[2025-03-19 06:20] LABS: Ammonia < 9 umol/L (9-30)
[2025-03-19 06:27] LABS: Blood Urea Nitrogen 15 mg/dl (9-20); Calcium 8.8 mg/dl (8.4-10.2); Carbon Dioxide 28 mmol/L (22-30); Chloride 106 mmol/L (98-107); Estimated Creatinine Clearance 99 ml/min; Glucose 119 mg/dl (70-99); HDL Cholesterol 31 mg/dl; LDL Cholesterol, Calculated 28 mg/dl; Magnesium 2.1 mg/dl (1.6-2.3); Potassium 3.7 mmol/L (3.5-5.1); Sodium 139 mmol/L (135-145); Total Cholesterol 84 mg/dl (50-199); Triglyceride 127 mg/dl (10-149); Very Low Density Lipoprotein 25 mg/dl (0-30); eGFR > 60.00
[2025-03-19 06:41] LABS: Erythrocyte Sed Rate 6 mm/hour (0-20)
[2025-03-19 07:08] LABS: Vitamin B12 648 pg/ml (239-931)
[2025-03-19 07:56] LABS: Monotest Negative (Negative)
[2025-03-19] MEDS: NON-FORMULARY ITEM 250 MG PO ×2 (08:29→20:19)
[2025-03-19] MEDS: ZYLOPRIM 100 MG PO (08:29)
[2025-03-19] MEDS: ASPIR LOW (ENTERIC COATED) 81 MG PO (08:29)
[2025-03-19] MEDS: ZESTRIL 5 MG PO ×2 (08:32→20:19)
[2025-03-19] MEDS: TOPROL XL 50 MG PO ×2 (08:32→20:20)
--- NOTE | 2025-03-19 09:03 | W.PN.NEURO.1 ---
Today's Communication / Plan
-
Discontinue ASA 81 due to increased risk of hemorrhagic conversion
Return atorvastatin from Lipitor 80 milligrams to dosing of 10 mg due to significantly low cholesterol level
Continue rivaroxaban
Consider Neurosurgical intervention if declining function with evidence of herniation
Neuro Assessment/Plan
Assessment
Brain MRI numerous emboli in the posterior circulation distribution most notably left cerebellum, left polly, right thalamus, and other areas
CTA bilateral V4 occlusion, basilar artery supplied retrograde.
Has cognitive baseline debility decompensated from the stroke
Plan
Discontinue ASA 81 due to increased risk of hemorrhagic conversion
Return atorvastatin from Lipitor 80 milligrams to dosing of 10 mg due to significantly low cholesterol level
Continue rivaroxaban
Consider Neurosurgical intervention if declining function with evidence of herniation
Will follow.
Subjective/Objective
Subjective Data
Date of Service: March 19, 2025
Objective Data
Vital Signs
Temp Pulse Resp BP Pulse Ox
36.6 C 89 16 121/79 97
03/19/25 07:04 03/19/25 08:32 03/19/25 07:04 03/19/25 08:32 03/19/25 07:04
Lab Results
03/19/25 05:40
03/19/25 05:41
PT 27.9 Sec (11.4-14.6) H 03/19/25 05:40
INR 2.60 03/19/25 05:40
Sodium 139 mmol/L (135-145) 03/19/25 05:41
Potassium 3.7 mmol/L (3.5-5.1) 03/19/25 05:41
BUN 15 mg/dl (9-20) 03/19/25 05:41
Glucose 119 mg/dl (70-99) H 03/19/25 05:41
Calcium 8.8 mg/dl (8.4-10.2) 03/19/25 05:41
LDL Cholesterol, Calc 28 mg/dl 03/19/25 05:41
Vitamin B12 648 pg/ml (429-771) 03/19/25 05:41
Ur Buprenorphine Negative (Negative) 03/18/25 00:15
Patient Allergies
codeine Adverse Reaction (Verified 02/07/25 10:56)
nervous/anxious
Review of Systems
-
Unable to obtain full review of systems at this time due to: Lethargy
History Source: Patient
All other systems: Reviewed and negative
Physical Exam
-
General: No Apparent Distress and Appears Stated Age
Eyes: Round OU, [place] Conjunctivae and No Ptosis; Negative Able to visualize OU
HEENT: Anicteric and Moist Mucous Membranes
Neck: Full Range of Motion
Respiratory: No Dyspnea
Cardiac: No JVD
GI: Non-distended
Skin: Unremarkable
Extremities: No Clubbing, No Cyanosis and No Edema
Psych: Unable to Assess
Extended Neurological Exam
Mood & Affect: Unable to Assess
Attention Span & Concentration: Awake, Unable to Perform 2 Step Request and Other (Unable to perform single step requests); Negative Alert or Interactive
Memory: Unable to Assess
Tremor: Hand Tremor Absent and Head Tremor Absent
Involuntary Movement: None
Speech: Severely Reduced Output
Cranial Nerve II: Left Eye: Pupillary Reactivity Unremarkable, Pupillary Size Unremarkable and Unable to Assess Visual Fuentes
Cranial Nerve II: Right Eye: Pupillary Reactivity Unremarkable, Pupillary Size Unremarkable and Unable to Assess Visual Fuentes
Cranial Nerves III, IV, : Extraocular Movement: Unable to Assess
Cranial Nerve VII: Facial Symmetry: Normal Facial Symmetry
Cranial Nerve VIII: Hearing: Unremarkable Hearing to Normal Conversational Volume
Cranial Nerves IX, X: Palate Movement: Unable to Assess
Cranial Nerve XI: Shoulder Shrug: Unable to Assess
Cranial Nerve XII: Tongue Protusion: Unable to Assess
Muscle Strength, Overall: Spontaneously Moves (All extremities)
Muscle Bulk & Tone: Bulk Unremarkable and Tone Unremarkable
Pronator Drift: Unable to Assess
Cold Sensation: Unable to Assess
Vibration Sensation: Unable to Assess
Coordination: Unable to Assess
Gait & Station: Unable to Assess
Data Reviewed
-
MRI Head: Report Reviewed
Labs: Report Reviewed
Lipid Profile: Report Reviewed
Reviewed with: Physician, Nurse and Family
Old Records: Summarized
--- NOTE | 2025-03-19 09:57 | W.PN.HOSP.TC ---
Today's Communication/Plan
-
Neurologic monitoring in IMU.
Echocardiogram rule out embolic source
Chest x-ray, right chest ultrasound to assess pleural effusion.
Assessment / Plan
Assessment / Plan
Impression:
Presentation with altered mental status.
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
Large right pleural effusion on CT
Conditions prior to admission:
Chronic atrial fibrillation
Anticoagulation with Xarelto
Essential hypertension.
Lung adenocarcinoma status post lymph node dissection on Xalkori
History of malignant pleural effusion right
Plan:
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
Patient presents with confusion and disorientation.
Remains lethargic
CT scan of the head with no acute abnormalities per
MRI of the brain findings consistent with multiple acute infarcts, largest in the left cerebellum. Other sites including bilateral occipital lobes, polly, left thalamus.
CTA Occlusions of the distal V4 segments of the bilateral vertebral arteries from just beyond the branches of the bilateral posterior inferior cerebellar arteries to the origin of the basilar artery. Alternatively, it may just be the distal left V4
segment that is occluded, with the right V4 segment being hypoplastic with drainage into the right PICA and an absent distal course, which is an anatomic variant.
Large right pleural effusion.
Continue close neurologic monitoring transferring to IMU open
Given posterior infarcts particularly largest in the left cerebellum, remains at high risk for cerebral edema with herniation
Discussed with neurology
Continue close neurologic monitoring. If further neurologic deterioration, consider neurosurgical evaluation.
Further workup with echocardiogram.
Currently on Xarelto. With the assumption of embolic CVA, no apparent benefit for antiplatelet therapy
Could not rule out hypercoagulable state given lung carcinoma.
Chronic atrial fibrillation
Continue rate control with metoprolol 50 mg p.o. twice daily.
Anticoagulation with Xarelto
Essential hypertension.
Continue metoprolol, Zestril
Dyslipidemia, Lipitor increased from 10 to 80 mg
Lung adenocarcinoma.
History of lymph node dissection.
Currently on Xalkori.
'If above related hypercoagulable state reason for multifocal embolic CVA
History of right malignant pleural effusion.
Recurrent and moderate to large in size right pleural effusion incidentally noted on CTA.
Respiratory status stable.
Chest x-ray
Right chest ultrasound with consideration of thoracentesis
Consider CT of the chest post-thoracentesis (if amenable)
Anticipated Discharge: > 48 hours
Subjective/Interval History
-
Date of Service: March 19, 2025
Objective Data
-
Labs:
Laboratory Results
03/19/25 03/19/25
05:40 05:41
WBC 11.1 H
Hgb 14.7
Hct 43.7
Plt Count 142
PT 27.9 H
INR 2.60
Sodium 139
Potassium 3.7
Chloride 106
Carbon Dioxide 28
BUN 15
Creatinine 1.0
Glucose 119 H
Calcium 8.8
Vital Signs:
Vital Signs
Temp Pulse Resp BP Pulse Ox
97.9 F 89 16 121/79 97
03/19/25 07:04 03/19/25 08:32 03/19/25 07:04 03/19/25 08:32 03/19/25 07:04
I&O
03/18/25 03/19/25 03/20/25
06:59 06:59 06:59
Intake Total 720 / 720
Output Total 400 / 400
Balance 320 / 320
Physical Exam
-
General: Well Developed and No Apparent Distress
HEENT: Normocephalic, Atraumatic and Moist Mucous Membranes
Respiratory: Clear to Auscultation
Cardiac: Regular Rhythm and S1/S2; Negative Murmur, Rub or Gallop
GI: Soft, Nontender, Nondistended and Normal Bowel Sounds; Negative Organomegaly
Rectal: Deferred by Provider
Musculoskeletal: No Clubbing, No Cyanosis and No Edema
Skin: Negative Rash
Neuro: Awake, Alert, Oriented (Name only) and Other (Lethargic)
[2025-03-19 10:07] LABS: Glycohemoglobin (HgbA1c) 5.4 % (4.0-5.6)
--- NOTE | 2025-03-19 13:32 | PTCARENOTE ---
Patient drowsy but arousable. NIH is 6, see documentation. Patient to be moved to IMU per Dr. Infante. VSS. This RN assisted patient to CAT scan. updated on room change. Report given to IMU RN Sona.
[2025-03-19 13:57] LABS: Lyme Antibody Screen, EIA Negative (Negative)
--- NOTE | 2025-03-19 13:59 | CM ---
CM following re: discharge planning.
Reviewed pt's chart, met with pt.
Per MD, neurologic monitoring in IMU, continue supportive care.
PT and OT will evaluate the pt when clinically appropriate to determine a level of care at discharge.
D/C plan: uncertain at this time and will de[end on pt's progress.
--- NOTE | 2025-03-19 14:00 | PTCARENOTE ---
Pt received from . Aox1, drowsy and lethargic. NIH of 8. Afib on tele monitor. at bedside, updated at length on plan of care. Bed alarm in place for safety.
[2025-03-19 14:48] LABS: B.E. 4.8 mmol/L; HCO3 28.2 mmol/L (21-28); O2 Saturation % 98.5 % (94-98); PCO2 37 mmHg (35-48); PO2 139 mmHg (83-108); pH 7.49 (7.35-7.45)
--- NOTE | 2025-03-19 17:30 | PTCARENOTE ---
Pt much more alert. Able to converse with and this RN.
--- NOTE | 2025-03-19 17:42 | PTCARENOTE ---
Pt passed bedside swallow test.
[2025-03-19] MEDS: XARELTO 20 MG PO (18:12)
[2025-03-19] MEDS: LIPITOR 10 MG PO (18:12)
[2025-03-19 22:28] LABS: Glucose - Point of Care 106 mg/dl (70-99)
[2025-03-20] VITALS (15 sets, daily range): BP systolic 98–129; BP diastolic 55–80; PULSE 87; O2SAT 94
--- NOTE | 2025-03-20 03:47 | PTCARENOTE ---
Pt NIH score 6. Neuro checks Q4H. Pt aaox1. No urine output this shift so far. Bladder scan @0100 showed 225ml in bladder. Will reasess around 0600. VSS. Pt resting comfortably in bed. Care ongoing.
[2025-03-20 06:47] LABS: Urine Albumin 1+ (Neg - Trace); Urine Bilirubin Negative (Negative); Urine Character Clear (Clear); Urine Color Yellow; Urine Glucose Negative (Negative); Urine Ketone Negative (Negative); Urine Leukocyte Negative (Negative); Urine Nitrite Negative (Negative); Urine Occult Blood 4+ (Negative); Urine Urobilinogen Negative (Neg - 1+)
[2025-03-20 07:26] LABS: Urine Bacteria Few (Negative)
[2025-03-20 08:07] LABS: Glucose - Point of Care 110 mg/dl (70-99)
[2025-03-20] MEDS: NON-FORMULARY ITEM 250 MG PO ×2 (08:13→19:23)
[2025-03-20] MEDS: ZYLOPRIM 100 MG PO (08:14)
[2025-03-20] MEDS: TOPROL XL 50 MG PO ×2 (08:14→19:24)
[2025-03-20] MEDS: ZESTRIL 5 MG PO ×2 (08:14→19:24)
--- NOTE | 2025-03-20 11:03 | W.PN.HOSP.TC ---
Today's Communication/Plan
-
Continue neurologic monitoring
Continuing Xarelto.
PT assessment.
Assessment / Plan
Assessment / Plan
Impression:
Presentation with altered mental status.
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
Large right pleural effusion on CT
Conditions prior to admission:
Chronic atrial fibrillation
Anticoagulation with Xarelto
Essential hypertension.
Lung adenocarcinoma status post lymph node dissection on Xalkori
History of malignant pleural effusion right
Plan:
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
CT scan of the head with no acute abnormalities per
MRI of the brain findings consistent with multiple acute infarcts, largest in the left cerebellum. Other sites including bilateral occipital lobes, polly, left thalamus.
CTA Occlusions of the distal V4 segments of the bilateral vertebral arteries from just beyond the branches of the bilateral posterior inferior cerebellar arteries to the origin of the basilar artery. Alternatively, it may just be the distal left V4
segment that is occluded, with the right V4 segment being hypoplastic with drainage into the right PICA and an absent distal course, which is an anatomic variant.
Large right pleural effusion.
Echocardiogram with preserved biventricular function and no evidence of cardioembolic source.
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 At this point no clear indication for DELANO
Remains lethargic with right facial droop, mild unchanged over the last 24 hours.
ABG not consistent with CO2 retention
Monitor neurologic status closely and while on anticoagulation.
Repeat imaging if significant change
Currently on Xarelto. With the assumption of embolic CVA, no apparent benefit for antiplatelet therapy
Could not rule out hypercoagulable state given lung carcinoma.
Chronic atrial fibrillation
Continue rate control with metoprolol 50 mg p.o. twice daily.
Anticoagulation with Xarelto
Essential hypertension.
Continue metoprolol, Zestril
Dyslipidemia, Lipitor increased from 10 to 80 mg
Lung adenocarcinoma.
History of lymph node dissection.
Currently on Xalkori.
'If above related hypercoagulable state reason for multifocal embolic CVA
History of right malignant pleural effusion.
Recurrent and moderate to large in size right pleural effusion incidentally noted on CTA.
Respiratory status stable.
Chest x-ray
Right chest ultrasound with small right pleural effusion
Stable respiratory status with no requirements for supplemental oxygen.
Anticipated Discharge: 24 - 48 hours
Subjective/Interval History
-
Date of Service: March 20, 2025
Objective Data
-
Vital Signs:
Vital Signs
Temp Pulse Resp BP Pulse Ox
97.8 F 79 18 98/56 94
03/20/25 07:05 03/20/25 10:00 03/20/25 10:00 03/20/25 10:00 03/20/25 08:00
I&O
03/19/25 03/20/25 03/21/25
06:59 06:59 06:59
Intake Total 720 / 720 240 / 240
Output Total 400 / 400 500 / 500
Balance 320 / 320 -260 / -260
Physical Exam
-
General: Well Developed and No Apparent Distress
HEENT: Normocephalic, Atraumatic and Moist Mucous Membranes
Respiratory: Clear to Auscultation
Cardiac: Regular Rhythm and S1/S2; Negative Murmur, Rub or Gallop
GI: Soft, Nontender, Nondistended and Normal Bowel Sounds; Negative Organomegaly
Rectal: Deferred by Provider
Musculoskeletal: No Clubbing, No Cyanosis and No Edema
Skin: Negative Rash
Neuro: Awake, Alert, Oriented (Name only) and Other (Lethargic)
--- NOTE | 2025-03-20 11:18 | PTOTSP ---
MASTER POLICE DETECTIVE Evaluation
Mild signs of oral dysphagia without overt signs of pharyngeal dysphagia.
Mild dysarthria but 100% intelligible to unfamiliar listener.
Quick Aphasia Battery Form 1 = 7.03 with moderate deficits in receptive and expressive language and relatively spared repetition. Suspect visual deficits acutely exacerbating severity of score.
Cognitive linguistic deficits noted (i.e., changes to orientation, concrete thinking, decreased short term recall). Further evaluation warranted.
Recommend:
1. IDDSI 7 Regular, Thin
2. Medications as best tolerated
3. Supervision and assistance as need with PO intake
4. Strategies: slow rate with small sips/bites, check for pocketing, alternate sips/bites
5. Dysphagia tx for instruction in compensations. Further speech/language/cognitive evaluation tx at the acute care level and after D/C.
--- NOTE | 2025-03-20 11:37 | W.PN.NEURO.1 ---
Today's Communication / Plan
-
From neurological standpoint, okay to downgrade patient's level of care as the patient is now outside of initial 72 hours of stroke onset with posterior circulation lesion of significant size
Neuro Assessment/Plan
Assessment
Brain MRI numerous emboli in the posterior circulation distribution most notably left cerebellum, left polly, right thalamus, and other areas
CTA bilateral V4 occlusion, basilar artery supplied retrograde.
Has cognitive baseline debility decompensated from the stroke
Plan
Return atorvastatin from Lipitor 80 milligrams to dosing of 10 mg due to significantly low cholesterol level
Continue rivaroxaban
Consider Neurosurgical intervention if declining function with evidence of herniation
From neurological standpoint, okay to downgrade patient's level of care as the patient is now outside of initial 72 hours of stroke onset with posterior circulation lesion of significant size
Will follow.
Subjective/Objective
Subjective Data
Date of Service: March 20, 2025
Patient reports no significant changes in symptoms
Objective Data
Vital Signs
Temp Pulse Resp BP Pulse Ox
36.6 C 79 18 98/56 94
03/20/25 07:05 03/20/25 10:00 03/20/25 10:00 03/20/25 10:00 03/20/25 08:00
Lab Results
03/19/25 05:40
03/19/25 05:41
PT 27.9 Sec (11.4-14.6) H 03/19/25 05:40
INR 2.60 03/19/25 05:40
Sodium 139 mmol/L (135-145) 03/19/25 05:41
Potassium 3.7 mmol/L (3.5-5.1) 03/19/25 05:41
BUN 15 mg/dl (9-20) 03/19/25 05:41
Glucose 119 mg/dl (70-99) H 03/19/25 05:41
Calcium 8.8 mg/dl (8.4-10.2) 03/19/25 05:41
LDL Cholesterol, Calc 28 mg/dl 03/19/25 05:41
Vitamin B12 648 pg/ml (239-931) 03/19/25 05:41
Ur Buprenorphine Negative (Negative) 03/18/25 00:15
Patient Allergies
codeine Adverse Reaction (Verified 02/07/25 10:56)
nervous/anxious
Review of Systems
-
History Source: Patient
All other systems: Reviewed and negative
Neuro: Other (Diplopia with primary gaze); Negative Dizzy or Headache
Physical Exam
-
General: No Apparent Distress, Obese and Appears Stated Age
Eyes: Round OU, [place] Conjunctivae and No Ptosis
HEENT: Anicteric and Moist Mucous Membranes
Neck: Full Range of Motion
Respiratory: No Dyspnea
Cardiac: No JVD
GI: Non-distended
Skin: Unremarkable
Extremities: No Clubbing, No Cyanosis and No Edema
Psych: Intact Judgement/Insight
Extended Neurological Exam
Mood & Affect: Mood Unremarkable and Affect Unremarkable
Attention Span & Concentration: Awake, Interactive and Other (Mild difficulty with performing single step requests); Negative Alert
Memory: Vague (Recall of recent events, unclear if patient understood that he had had a stroke recently)
Tremor: Hand Tremor Absent and Head Tremor Absent
Involuntary Movement: None
Speech: Moderately Reduced Output
Cranial Nerve II: Left Eye: Pupillary Reactivity Unremarkable, Pupillary Size Unremarkable and Visual Fuentes Grossly Intact
Cranial Nerve II: Right Eye: Pupillary Reactivity Unremarkable, Pupillary Size Unremarkable and Visual Fuentes Grossly Intact
Cranial Nerves III, IV, : Extraocular Movement: Other (Restriction bilaterally of horizontal abduction)
Cranial Nerve VII: Facial Symmetry: Normal Facial Symmetry
Cranial Nerve VIII: Hearing: Unremarkable Hearing to Normal Conversational Volume
Cranial Nerves IX, X: Palate Movement: Unable to Assess
Cranial Nerve XI: Shoulder Shrug: Unable to Assess
Cranial Nerve XII: Tongue Protusion: Unable to Assess
Muscle Strength, Overall: Spontaneously Moves (All extremities)
Muscle Bulk & Tone: Bulk Unremarkable and Tone Unremarkable
Pronator Drift: Unable to Assess
Cold Sensation: Unable to Assess
Vibration Sensation: Unable to Assess
Coordination: Unable to Assess
Gait & Station: Unable to Assess
Data Reviewed
-
MRI Head: Report Reviewed and Image Reviewed
Labs: Report Reviewed
Lipid Profile: Report Reviewed
Reviewed with: Nurse and Patient
Old Records: Summarized
Past History
Past History
ED Past Medical History: Arrthythmia, CVA, HTN, Hypercholesterolemia and NIDDM
ED Past Surgical History: Appendectomy, Orthopedic, Tonsilectomy and Other (Lung resection)
Social History
Tobacco: Non-smoker
Alcohol: None
Drug: None
Personal:
Living: with family
Family History
Family History: Other (reviewed and non-contributory)
Medications
-
Medications:
Generic Name Dose Route Start Last Admin
Trade Name Freq PRN Reason Stop Dose Admin
Acetaminophen 650 mg 03/18/25 07:33
Acetaminophen 325 Mg Tablet PO 04/15/25 07:32
Q4HPRN PRN
mild pain/PRADHAN/temp> 100.4F
Allopurinol 100 mg 03/18/25 08:00 03/20/25 08:14
Allopurinol 100 Mg Tablet PO 04/15/25 07:59 100 mg
DAILY ЕЛЕНА Administration
Atorvastatin Calcium 10 mg 03/19/25 18:00 03/19/25 18:12
Atorvastatin (Lipitor) 10 Mg Tablet PO 04/16/25 17:59 10 mg
QPM ЕЛЕНА Administration
Lisinopril 5 mg 03/18/25 08:00 03/20/25 08:14
Lisinopril 5 Mg Tablet PO 04/15/25 07:59 5 mg
BID ЕЛЕНА Administration
Metoprolol Succinate 50 mg 03/18/25 08:00 03/20/25 08:14
Metoprolol 50 Mg Extended Release Tablet PO 04/15/25 07:59 50 mg
BID ЕЛЕНА Administration
Crizotinib [Xalkori] 0 mg 03/18/25 20:00 03/20/25 08:13
250 Mg Capsule Po PO 04/15/25 19:59 250 mg
Bid BID ЕЛЕНА Administration
Ondansetron HCl 4 mg 03/18/25 07:33
Ondansetron 4 Mg/2 Ml Vial IV 04/15/25 07:32
Q6HPRN PRN
nausea and vomiting
Polyethylene Glycol 17 grams 03/18/25 07:33
Polyethylene Glycol Powder 17 Grams Packet PO 04/15/25 07:32
DAILYPRN PRN
constipation
Rivaroxaban 20 mg 03/18/25 17:30 03/19/25 18:12
Rivaroxaban 20 Mg Tablet PO 04/15/25 17:29 20 mg
1730 ЕЛЕНА Administration
Sodium Chloride 0 flush 03/18/25 06:00
Sodium Chloride 0.9% (Flush) Syringe IV 04/15/25 05:59
PER PROTOCOL ЕЛЕНА
[2025-03-20 12:05] LABS: HIV Combo Negative (Negative)
[2025-03-20 14:10] LABS: Syphilis/T. pallidum Ab Reflex Negative (Negative)
--- NOTE | 2025-03-20 14:57 | CM ---
Patient with Hx lung CA with Dx CVA, pleural effusion. Room air. Receiving Xalkori (crizotinib)- brought from home per . PT/OT Evals pending. Physiatry Consult pending. Dysphagia consult pending. Nurse; assist of 2, bedrest.
Met with patient and Renetta;
discussed possible need for rehab for stroke, and that CM will assist with d/c planning process for rehab. Provide info re; Khadar CRUZ here at - they are interested in Khadar as needed.
has major concern that his Crizotinib will run out in 2 weeks, she told [employer] (the supplier) that he was in hospital and they will not resupply his meds until he goes home.
Spoke with Khadar Nolasco Liaison; discussed clinical status. She will review the referral.
Plan follow up after seen by PT, OT & Physiatry.
--- NOTE | 2025-03-20 16:07 | PTCARENOTE ---
Pt's assessment as documented. Aox1, drowsy but arousable. NIH of 6. Afib on tele monitor. Worked with PT. Tolerating diet with assistance. White draining michael colored urine. at bedside, updated at length on plan of care. Bed alarm in place
for safety.
[2025-03-20] MEDS: LIPITOR 10 MG PO (17:49)
[2025-03-20] MEDS: XARELTO 20 MG PO (17:49)
--- NOTE | 2025-03-20 20:32 | PTCARENOTE ---
NIHSS 7. Limb ataxia in L arm worse than previous shift. Pt remains, drowsy, only oriented to self, slurred/confused speech. VSS. Bed alarm in place. Neurochecks Q4H. Care ongoing.
[2025-03-21] VITALS (18 sets, daily range): BP systolic 98–142; BP diastolic 55–93; PULSE 82–132; O2SAT 95–96
[2025-03-21] MEDS: NON-FORMULARY ITEM 250 MG PO ×2 (08:32→20:04)
[2025-03-21] MEDS: ZESTRIL 5 MG PO ×2 (08:32→20:02)
[2025-03-21] MEDS: TOPROL XL 50 MG PO ×2 (08:32→20:03)
[2025-03-21] MEDS: ZYLOPRIM 100 MG PO (08:32)
--- NOTE | 2025-03-21 09:34 | W.PN.NEURO.1 ---
Today's Communication / Plan
-
Returned atorvastatin from 80 milligrams to dosing of 10 mg due to significantly low cholesterol level
Continue rivaroxaban
Neuro Assessment/Plan
Assessment
Brain MRI numerous emboli in the posterior circulation distribution most notably left cerebellum, left polly, right thalamus, and other areas
CTA bilateral V4 occlusion, basilar artery supplied retrograde.
Had cognitive baseline debility decompensated from the stroke
Plan
Returned atorvastatin from 80 milligrams to dosing of 10 mg due to significantly low cholesterol level
Continue rivaroxaban
Will follow as needed.
Subjective/Objective
Subjective Data
Date of Service: March 21, 2025
Objective Data
Vital Signs
Temp Pulse Resp BP Pulse Ox
36.3 C 78 23 121/60 96
03/21/25 07:05 03/21/25 08:32 03/21/25 06:16 03/21/25 08:32 03/21/25 08:00
Lab Results
03/19/25 05:40
03/19/25 05:41
PT 27.9 Sec (11.4-14.6) H 03/19/25 05:40
INR 2.60 03/19/25 05:40
Sodium 139 mmol/L (135-145) 03/19/25 05:41
Potassium 3.7 mmol/L (3.5-5.1) 03/19/25 05:41
BUN 15 mg/dl (9-20) 03/19/25 05:41
Glucose 119 mg/dl (70-99) H 03/19/25 05:41
Calcium 8.8 mg/dl (8.4-10.2) 03/19/25 05:41
LDL Cholesterol, Calc 28 mg/dl 03/19/25 05:41
Vitamin B12 648 pg/ml (239-931) 03/19/25 05:41
Ur Buprenorphine Negative (Negative) 03/18/25 00:15
Patient Allergies
codeine Adverse Reaction (Verified 02/07/25 10:56)
nervous/anxious
Data Reviewed
-
Labs: Report Reviewed
Old Records: Summarized
[2025-03-21 09:50] LABS: Ceruloplasmin 20 mg/dL (15-30)
--- NOTE | 2025-03-21 10:59 | PTCARENOTE ---
Assumed care of patient this morning, [facility] performed, see flowsheet. Pt awake early head start director but then during morning medications, patient had to be repeatedly engaged to stay awake. Pt's at bedside and presenting the same. Pt not waking up enough
to eat breakfast. also was at bedside and updated . New IV placed in R FA following patient pulling out IV overnight. White catheter maintained. PT currently working with patient. Assessment, care and VS as charted.
--- NOTE | 2025-03-21 11:25 | W.PN.HOSP.TC ---
Today's Communication/Plan
-
Continue neurologic monitoring.
Okay for telemetry given relatively stable neurologic status over the last 48 hours.
Continue anticoagulation
Physical therapy/physiatry consultation
Assessment / Plan
Assessment / Plan
Impression:
Presentation with altered mental status.
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
Large right pleural effusion on CT
Conditions prior to admission:
Chronic atrial fibrillation
Anticoagulation with Xarelto
Essential hypertension.
Lung adenocarcinoma status post lymph node dissection on Xalkori
History of malignant pleural effusion right
Plan:
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
CT scan of the head with no acute abnormalities per
MRI of the brain findings consistent with multiple acute infarcts, largest in the left cerebellum. Other sites including bilateral occipital lobes, polly, left thalamus.
CTA Occlusions of the distal V4 segments of the bilateral vertebral arteries from just beyond the branches of the bilateral posterior inferior cerebellar arteries to the origin of the basilar artery. Alternatively, it may just be the distal left V4
segment that is occluded, with the right V4 segment being hypoplastic with drainage into the right PICA and an absent distal course, which is an anatomic variant.
Large right pleural effusion.
Echocardiogram with preserved biventricular function and no evidence of cardioembolic source.
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 At this point no clear indication for DELANO
Remains lethargic with right facial droop, mild unchanged over the last 24 hours.
ABG not consistent with CO2 retention
Monitor neurologic status closely and while on anticoagulation.
Repeat imaging if significant change
Currently on Xarelto. With the assumption of embolic CVA, no apparent benefit for antiplatelet therapy
Could not rule out hypercoagulable state given lung carcinoma.
Chronic atrial fibrillation
Continue rate control with metoprolol 50 mg p.o. twice daily.
Anticoagulation with Xarelto
Essential hypertension.
Continue metoprolol, Zestril
Dyslipidemia, Lipitor increased from 10 to 80 mg
Lung adenocarcinoma.
History of lymph node dissection.
Currently on Xalkori.
'If above related hypercoagulable state reason for multifocal embolic CVA
History of right malignant pleural effusion.
Recurrent and moderate to large in size right pleural effusion incidentally noted on CTA.
Respiratory status stable.
Chest x-ray
Right chest ultrasound with small right pleural effusion
Stable respiratory status with no requirements for supplemental oxygen.
Anticipated Discharge: 24 - 48 hours
Subjective/Interval History
-
Date of Service: March 21, 2025
Objective Data
-
Vital Signs:
Vital Signs
Temp Pulse Resp BP Pulse Ox
97.4 F 90 18 135/93 95
03/21/25 07:05 03/21/25 10:00 03/21/25 10:00 03/21/25 10:00 03/21/25 10:05
I&O
03/20/25 03/21/25 03/22/25
06:59 06:59 06:59
Intake Total 240 / 240 480 / 480
Output Total 500 / 500 1150 / 1150
Balance -260 / -260 -670 / -670
Physical Exam
-
General: Well Developed and No Apparent Distress
HEENT: Normocephalic, Atraumatic and Moist Mucous Membranes
Respiratory: Clear to Auscultation
Cardiac: Regular Rhythm and S1/S2; Negative Murmur, Rub or Gallop
GI: Soft, Nontender, Nondistended and Normal Bowel Sounds; Negative Organomegaly
Rectal: Deferred by Provider
Musculoskeletal: No Clubbing, No Cyanosis and No Edema
Skin: Negative Rash
Neuro: Awake, Alert, Oriented (Name only) and Other (Lethargic)
--- NOTE | 2025-03-21 16:02 | PTCARENOTE ---
Upon entry to room, patient found with hand around White catheter and stat lock pulled off. Patient followed commands when told to let go of White catheter. Pt's catheter appeared to be further out than prior. Catheter balloon checked. Catheter now
with bright red blood. TT to , he advised to monitor output. No new orders at this time.
[2025-03-21] MEDS: XARELTO 20 MG PO (17:39)
[2025-03-21] MEDS: LIPITOR 10 MG PO (17:39)
[2025-03-22] VITALS (14 sets, daily range): BP systolic 109–157; BP diastolic 55–88; PULSE 2–86
--- NOTE | 2025-03-22 00:50 | PTCARENOTE ---
Care assumed of Pt from dayshift RN. Pt alert to self, opens eyes to voice, drowsy, follows simple commands. Qshift NIH check maintained. see separate intervention on worklist for full NIH assessment. White maintained, stat lock present to upper
right inner thigh. Assessment as documented. call light in reach.
--- NOTE | 2025-03-22 09:18 | PTCARENOTE ---
Upon assessment, pt minimally responsive to sternal rub. Dr. Rosales notified via TT.
--- NOTE | 2025-03-22 09:30 | VATNOTE ---
Responded to called rapid response on pt. Additional IV access established, but unable to draw lab work requested from IV. Phlebotomy stick completed for lab work.
[2025-03-22 09:40] LABS: Glucose - Point of Care 112 mg/dl (70-99)
[2025-03-22 09:48] LABS: B.E. 3.5 mmol/L; HCO3 26.8 mmol/L (21-28); O2 Saturation % 98.2 % (94-98); PCO2 36 mmHg (35-48); PO2 118 mmHg (83-108); pH 7.48 (7.35-7.45)
--- NOTE | 2025-03-22 09:50 | RR ---
A Rapid Response was called on this patient, please see Rapid Response form.
Upon assessment, pt minimally responsive to sternal rub. Dr. Rosales notified via TT. RAPID RESPONSE CALLED. ICU and physicians at bedside. Stroke alert called by WEIGHT TESTER. To CT with WEIGHT TESTER.
[2025-03-22 10:00] LABS: % Basophils 0.4 % (0-2); % Eosinophils 0.7 % (0-6); % Immature Granulocytes 0.8 % (0-0.5); % Lymphocytes 12.6 % (20.5-51.1); % Monocytes 11.5 % (1.7-9.3); Absolute Basophils 0.1 10^3/uL (0-0.2); Absolute Eosinophils 0.1 10^3/uL (0-0.7); Absolute Immature Granulocytes 0.1 10^3/uL (0-0.05); Absolute Lymphocytes 1.9 10^3/uL (1.2-3.4); Absolute Monocytes 1.8 10^3/uL (0.1-0.6); Absolute Neutrophils 11.4 10^3/uL (1.4-6.5); Hemoglobin 16.4 g/dL (13.0-18.0); Mean Corp Hgb Conc. 34.2 g/dL (33.0-37.0); Mean Corpuscular Hgb 29.9 pg (27.0-31.0); Mean Corpuscular Volume 87.4 fL (80.0-94.0); Mean Platelet Volume 10.5 fL (7.4-10.4); Nucleated Red Blood Cells % 0 % (-); Platelet Count 167 10^3/uL (130-400); Red Blood Cell Count 5.49 10^6/uL (4.70-6.10); Red Cell Dist. Width 13.1 % (11.5-14.5); White Blood Cell Count 15.4 10^3/uL (4.8-10.8)
[2025-03-22] MEDS: ZYLOPRIM PO (10:01)
[2025-03-22] MEDS: ZESTRIL PO ×2 (10:01→19:28)
[2025-03-22] MEDS: TOPROL XL PO ×2 (10:01→19:28)
[2025-03-22] MEDS: NON-FORMULARY ITEM PO ×2 (10:01→19:28)
[2025-03-22 10:13] LABS: Lactic Acid 1.2 mmol/L (0.7-2.0)
[2025-03-22 10:23] LABS: ALT (SGPT) 31 U/L (0-50); AST (SGOT) 31 U/L (17-59); Albumin 3.7 g/dl (3.5-5.0); Alkaline Phosphatase 108 U/L (38-126); Blood Urea Nitrogen 18 mg/dl (9-20); Calcium 8.8 mg/dl (8.4-10.2); Carbon Dioxide 29 mmol/L (22-30); Chloride 105 mmol/L (98-107); Estimated Creatinine Clearance 90 ml/min; Glucose 113 mg/dl (70-99); Potassium 4.6 mmol/L (3.5-5.1); Sodium 138 mmol/L (135-145); Total Bilirubin 0.9 mg/dl (0.2-1.3); Total Protein 6.6 g/dl (6.3-8.2); eGFR > 60.00
[2025-03-22 10:24] LABS: Troponin I < 0.012 ng/ml
[2025-03-22 10:28] LABS: INR 2.95; PT 31.1 Sec (11.4-14.6)
--- NOTE | 2025-03-22 10:59 | W.PN.HOSP.TC ---
Today's Communication/Plan
-
No improvement in neurologic status while patient remains lethargic and poorly arousable
Continue close neurologic monitoring.
Infectious workup.
Cardiology consultation with consideration of DELANO.
Aspiration precautions.
Empiric antibiotics
Maintain White
Discussed with nursing, neurology, patient's at the bedside
Assessment / Plan
Assessment / Plan
Impression:
Presentation with altered mental status.
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
Large right pleural effusion on CT
Conditions prior to admission:
Chronic atrial fibrillation
Anticoagulation with Xarelto
Essential hypertension.
Lung adenocarcinoma status post lymph node dissection on Xalkori
History of malignant pleural effusion right
Plan:
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
CT scan of the head with no acute abnormalities per
MRI of the brain findings consistent with multiple acute infarcts, largest in the left cerebellum. Other sites including bilateral occipital lobes, polly, left thalamus.
CTA Occlusions of the distal V4 segments of the bilateral vertebral arteries from just beyond the branches of the bilateral posterior inferior cerebellar arteries to the origin of the basilar artery. Alternatively, it may just be the distal left V4
segment that is occluded, with the right V4 segment being hypoplastic with drainage into the right PICA and an absent distal course, which is an anatomic variant.
Large right pleural effusion.
Echocardiogram with preserved biventricular function and no evidence of cardioembolic source.
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
Remains lethargic poorly responsive with no particular improvement of neurologic status over the last 24 [address] of the head scan on 03/22 with concern for new small focus of decreased density within the left thalamus which likely subacute infarct. These findings also new when compared to MRI of the brain in March 18, although no comment in comparison
with CT scan from 03/19.
Serial ABG with no evidence of respiratory acidosis/CO2 retention
Noted with elevated white count at 15, although afebrile
Acute urinary retention with White catheter placed on 03/20
Also remains aspiration risk
Continue close neurologic monitoring
Continuing Xarelto
Cardiology consultation with consideration of DELANO
Blood culture
Urine culture
Monitor temperature curve
Aspiration precautions
Chest x-ray
Empiric antibiotics will be initiated after blood culture drawn on 03/22 to cover aspiration: Unasyn
Chronic atrial fibrillation
Continue rate control with metoprolol 50 mg p.o. twice daily.
Anticoagulation with Xarelto
Essential hypertension.
Continue metoprolol, Zestril
Dyslipidemia, Lipitor increased from 10 to 80 mg
Lung adenocarcinoma.
History of lymph node dissection.
Currently on Xalkori.
'If above related hypercoagulable state reason for multifocal embolic CVA
History of right malignant pleural effusion.
Recurrent and moderate to large in size right pleural effusion incidentally noted on CTA.
Respiratory status stable.
Chest x-ray
Right chest ultrasound with small right pleural effusion
Stable respiratory status with no requirements for supplemental oxygen.
Anticipated Discharge: > 48 hours
Subjective/Interval History
-
Date of Service: March 22, 2025
Objective Data
-
Labs:
Laboratory Results
03/22/25 03/22/25
09:34 09:40
WBC 15.4 H
Hgb 16.4
Hct 48.0
Plt Count 167
PT 31.1 H
INR 2.95
APTT 39.0 H
HCO3 26.8
Sodium 138
Potassium 4.6
Chloride 105
Carbon Dioxide 29
BUN 18
Creatinine 1.1
Glucose 113 H
Calcium 8.8
Total Bilirubin 0.9
AST 31
ALT 31
Alkaline Phosphatase 108
Vital Signs:
Vital Signs
Temp Pulse Resp BP Pulse Ox
99.3 F 105 23 150/87 96
03/22/25 07:05 03/22/25 09:32 03/22/25 09:32 03/22/25 09:32 03/22/25 09:32
I&O
03/21/25 03/22/25 03/23/25
06:59 06:59 06:59
Intake Total 480 / 480
Output Total 1150 / 1150 1190 / 1190
Balance -670 / -670 -1190 / -1190
Physical Exam
-
General: Well Developed and No Apparent Distress
HEENT: Normocephalic, Atraumatic, Moist Mucous Membranes and PERRLA
Respiratory: Clear to Auscultation
Cardiac: Regular Rhythm and S1/S2; Negative Murmur, Rub or Gallop
GI: Soft, Nontender, Nondistended and Normal Bowel Sounds; Negative Organomegaly
Rectal: Deferred by Provider
Musculoskeletal: No Clubbing, No Cyanosis and No Edema
Skin: Negative Rash
Neuro: Other (Lethargic, but arousable. Following commands. GCS 6, ABDIFATAH bilaterally sluggish bilateral upper and lower extremity for movement with drift right greater than left. Aphasia, dysarthria, right facial droop)
--- NOTE | 2025-03-22 12:18 | PTCARENOTE ---
Pt in afib with bursts to the 150's. Cardiology aware.
--- NOTE | 2025-03-22 12:28 | CON.CAR ---
Addendum entered and electronically signed by Fred Gómez MD 03/22/25 21:29:
69-year-old man with adenocarcinoma of the right lung, stage IV, status post right lower lobe lobectomy in 2021, currently in remission. Known history of paroxysmal A-fib, admitted with change in mental status, recent COVID, and bilateral posterior
circulation distribution infarcts, suspected to be embolic. He is febrile, cultures are pending. Transthoracic echo without evidence of vegetation.
PMH: Adenocarcinoma of the right lower lobe of the lung with malignant pleural effusion, lobectomy 2021, in remission on Xalkori, hypertension, hyperlipidemia, history of paroxysmal atrial fibrillation
Current meds: Allopurinol 100 mg a day, Xalkori,, lisinopril 5 mg twice daily, metoprolol ER 50 mg twice daily, rivaroxaban 20 mg daily, atorvastatin 10 mg daily, ampicillin/sulbactam, metoprolol 5 IV every 6 hours, half-normal saline
109/79, pulse 134, respiratory rate 23, febrile, unresponsive, demonstrating sleep apnea, [id number] at bedside, does not appear to be in distress, and unremarkable, diminished breath sounds right base but limited exam, irregular rate and
rhythm, relatively tachycardic, currently in atrial fibrillation, abdomen very obese extremities 1+ to 2+ edema, neuro could not be tested
Chest x-ray with right pleural effusion, cardiomegaly, limited inspiration
CT 03/22/2025: small subacute infarct left thalamus new since March 19, multiple other subacute infarctions similar to MRI of brain March 18, no hemorrhage. MRI March 18: Multiple acute infarcts, largest left cerebellum, bilateral occipital lobes, polly
and right thalamus, possible small metastatic focus in the right parieto-occipital junction
Echo 03/19/2025: EF 65-70%, trace MR, mild aortic sclerosis, trace AI, dilated right ventricle, pulmonary artery pressure is 33, pericardial fat pad and ascending aorta 3.7 cm
Telemetry atrial fibrillation with RVR
White count 15, hemoglobin 16.4, BUN and creatinine are 18 and 0.1, potassium is 4.6, troponin is undetectable
ECG atrial fibrillation with rapid ventricular response, A-fib was present in April 2020
Impression:
Bihemispheric strokes, predominantly in posterior circulation distribution
Persistent/permanent atrial fibrillation
Concern for cardioembolic stroke, on Xarelto
Stage IV adenocarcinoma of the right lung, history of malignant right pleural effusion, now with recurrent effusion
Fever/clinical sepsis with negative cultures to date
Hypertension
Hyperlipidemia
Rest of impression listed below as per Yarelis Ramos. Reviewed in detail and agree, unless otherwise specified below
Plan:
He presents with bihemispheric strokes that could conceivably be cardioembolic. There is no evidence of endocarditis on transthoracic echocardiogram. It is conceivable that he has left atrial appendage thrombus, he is Xarelto failure, but this
scenario is relatively unlikely. It could still be that his strokes are atheroembolic emanating from the posterior circulation/basilar artery etc.
Given his multiple comorbidities he is a very poor candidate for transesophageal echo, and we will plan on holding off until his prognosis is better defined.
Concern regarding recurrence of malignant pleural effusion, will defer to hospitalist as to whether or not thoracentesis poor prognosis is warranted. Suspect that pleural effusion is not transudative.
His ventricular response to atrial fibrillation is suboptimal. Will increase IV metoprolol as currently he is NPO. Consider addition of digoxin.
If he remains n.p.o., may need to switch to heparin. We could consider transition to Eliquis.
However, his prognosis may be poor.
Original Note:
Consultation
Consultation Request
Date/Time Consultation Performed: 03/22/25
Requesting Provider: Dr. Rosales
Performing Provider: Yarelis Ramos PA-C for Dr. COURTNEY Gómez
Reason for Consultation: afib, CVA, eval for DELANO
Medical History
-
Chief Complaint: change in mental status
History of Present Illness:
Patient is a 69-year-old male with past medical history of stage 4 adenocarcinoma of R lung, s/p R lower lobectomy 04/2022 per considered to be in remission on chronic Xalkori (targeted immunologic therapy), followed by Dr. Christiano Hernández at [place].
Also has history of paroxysmal atrial fibrillation on chronic Xarelto, hypertension, hyperlipidemia who presented to [facility] due to confusion and change in mental status. He had recently been diagnosed with COVID approximately 10 days
ago and completed course of malnupiravir. Brain imaging showed evidence of multiple B/L infarcts in posterior circulation distribution, felt most likely to be embolic. This morning patient was a stroke alert due to increased somnolence and
underwent repeat head CT read as concern for new area of infarct, however felt to be without significant change per neurology. Patient with fever today, blood cultures pending. Cardiology consulted for evaluate for DELANO as concern for possible
marantic endocarditis. TTE without evidence of vegetations, EF preserved. provides history as patient is somnolent, snoring. She states prior to admission he was oriented x3, ambulatory around their home. Had R pleural effusion by CXR, had
prior R thoracentesis in 2021 which was positive for malignant cells.
PMH:
Stage IV adenocarcinoma of right lung status post right lower lobectomy 04/2022, considered to be in remission on chronic Xalkori, followed by [facility]
History of malignant right pleural effusion status post thoracentesis 05/2022
Paroxysmal atrial fibrillation.
Chronic Xarelto therapy
Hypertension
Hyperlipidemia
Past Medical History
Past Medical History: Other (in HPI)
Social History
Tobacco: Former Smoker
Personal:
Living: With Family
Employment: Retired
Family History
Family History: CAD, Cancer and Diabetes
Allergies / Home Medications
Allergy/AdvReac Type Severity Reaction Status Date / Time
codeine AdvReac nervous/anx Verified 02/07/25 10:56
ious
�Medication �Instructions �Recorded �Confirmed �Type
atorvastatin 10 mg tablet 10 mg PO Q48H High Cholesterol 05/29/19 03/18/25 History
lisinopril 5 mg tablet 5 mg PO BID Blood Pressure 05/29/19 03/18/25 History
rivaroxaban 20 mg tablet (Xarelto) 20 mg PO 1730 08/01/19 12/15/24 History
allopurinol 100 mg tablet 100 mg PO DAILY Gout 03/25/22 03/18/25 History
metoprolol succinate 50 mg 50 mg PO BID Heart 06/03/22 03/18/25 History
tablet,extended release 24 hr Disease/Condition
crizotinib 250 mg capsule (Xalkori) 250 mg PO BID 08/31/22 03/18/25 History
albuterol 90 mcg/actuation aerosol 2 mcg inhalation Q4H PRN SOB 12/15/24 03/18/25 History
inhaler
furosemide 20 mg tablet 20 mg PO MOWEFR Fluid 12/15/24 03/18/25 History
Retention/Swelling
loperamide 2 mg tablet 2 mg PO Q6H PRN diarrhea 12/15/24 03/18/25 History
Review of Systems
-
History Source: Family
All other systems: Negative unless noted
Physical Exam
Vital Signs
Temp Pulse Resp BP Pulse Ox
99.3 F 105 23 150/87 96
03/22/25 07:05 03/22/25 09:32 03/22/25 09:32 03/22/25 09:32 03/22/25 12:08
Lab Results
03/22/25 09:40
03/22/25 09:40
Troponin I < 0.012 ng/ml 03/22/25 09:40
Physical Exam
General: Other (somnolent, snoring. on supp O2)
HEENT: Normocephalic and Moist Mucous Membranes
Respiratory: Other (decreased BS RLB)
Cardiac: S1/S2 and Irregular Rhythm
GI: Soft, Non Tender, Non Distended and Normal Bowel Sounds
Musculoskeletal: No Clubbing, No Cyanosis and No Edema
Skin: Warm and Dry
Neuro: Other (somnolent)
Impression / Plan
-
Primary Fire Pot Operator: Dr. Roman
Assessment:
Presentation with confusion, change in mental status
Multiple posterior circulation distribution infarcts
Mod R pleural effusion
Fever
Recent covid illness
Stage IV adenocarcinoma of right lung status post right lower lobectomy 04/2022, considered to be in remission on chronic Xalkori, followed by [facility]
History of malignant right pleural effusion status post thoracentesis 05/2022
Paroxysmal atrial fibrillation
Chronic Xarelto therapy
Hypertension
Hyperlipidemia
ECHO 03/19/25: EF 65 to 70%, trace MR, mild aortic sclerosis, trace AR, dilated RV with preserved function, PAP 33 mmHg, pericardial fat pad
Plan:
- Patient presented with confusion and change in mental status and found to have multiple posterior circulation distribution infarcts. Neurology following.
- currently NPO as somnolent.
- cardiology consulted to evaluate patient for DELANO as concern for marantic endocarditis.
- at present, do not feel patient is stable for procedures, such as DELANO, as involves sedation. d/w at bedside
- as with fever this AM, would work up for infectious process and treat accordingly
- follow mental status
- HRs in afib suboptimally controlled, likely as NPO. transition from OP toprol to IV lopressor 5mg Q6H and follow. may need to consider addition of amio for rate control if remains with refractory high heart rates with borderline BPs
- eventual resume OAC, consider for IV heparin in interim when ok per neurology. if felt to be xarelto failure, would consider transition to eliquis, defer to neuro. denies missed doses as OP
- would recommend thoracentesis of R pleural effusion if/when able. he had history of malignant pleural effusion in 2021. he is followed by Dr. Christiano Hernández of [facility]
- d/w neurology, hospitalist. d/w nursing
- d/w patient and at bedside
Data Reviewed
-
EKG: Tracing Personally Visualized and interpreted
CT Scan: Report Reviewed by me
MRI: Report Reviewed by me
Medical Tests (Nuc Med, Echo etc): Report Reviewed by me
Labs: Labs Reviewed by me
Old Records: Reviewed
--- NOTE | 2025-03-22 12:36 | CM ---
Patient seen at bedside with in IMU. Patient s/p rapid and awaiting results of CT scan. Patient with concerns about getting MRI and documentation to [facility] physician, patient to complete request for medical records. Patient
also with concerns about pharmacy medications: they are on the assistance plan for chemo medications and they are stating that the medications are only for outpatient use. Patient to discuss with nursing. Patient was pending PM&R assessment
for possible [facility] admission. CM will continue to follow for discharge planning needs.
Plan; [facility] pending PM&R review.
[2025-03-22] MEDS: TYLENOL/FEVERALL 650 MG RECTAL (12:51)
[2025-03-22] MEDS: UNASYN IV ×3 (12:52→23:45)
--- NOTE | 2025-03-22 13:06 | W.PN.NEURO.1 ---
Today's Communication / Plan
-
Continue atorvastatin 10 mg daily
Continue rivaroxaban
Consider DELANO if patient is believed to have significant infectious change with possible marantic endocarditis, unlikely
Neuro Assessment/Plan
Assessment
Brain MRI numerous emboli in the posterior circulation distribution most notably left cerebellum, left polly, right thalamus, and other areas
CTA bilateral V4 occlusion, basilar artery supplied retrograde.
Repeated CT of head showed no significant change from yesterday to today despite stroke alert
Had cognitive baseline debility decompensated from the stroke
Plan
Returned atorvastatin from 80 milligrams to dosing of 10 mg due to significantly low cholesterol level
Continue rivaroxaban
Consider DELANO if patient is believed to have significant infectious change with possible marantic endocarditis, unlikely
Will follow as needed.
Subjective/Objective
Subjective Data
Date of Service: March 22, 2025
Patient unable to provide his own medical history. Called to see patient due to stroke alert activation based on the patient's reduced awareness
Objective Data
Vital Signs
Temp Pulse Resp BP Pulse Ox
37.4 C 105 23 150/87 96
03/22/25 07:05 03/22/25 09:32 03/22/25 09:32 03/22/25 09:32 03/22/25 12:08
Lab Results
03/22/25 09:40
03/22/25 09:40
PT 31.1 Sec (11.4-14.6) H 03/22/25 09:40
INR 2.95 03/22/25 09:40
APTT 39.0 Sec (23.4-35.0) H 03/22/25 09:40
Sodium 138 mmol/L (135-145) 03/22/25 09:40
Potassium 4.6 mmol/L (3.5-5.1) 03/22/25 09:40
BUN 18 mg/dl (9-20) 03/22/25 09:40
Glucose 113 mg/dl (70-99) H 03/22/25 09:40
Calcium 8.8 mg/dl (8.4-10.2) 03/22/25 09:40
LDL Cholesterol, Calc 28 mg/dl 03/19/25 05:41
Vitamin B12 648 pg/ml (239-931) 03/19/25 05:41
Ur Buprenorphine Negative (Negative) 03/18/25 00:15
Patient Allergies
codeine Adverse Reaction (Verified 02/07/25 10:56)
nervous/anxious
Review of Systems
-
Unable to obtain full review of systems at this time due to: Lethargy
History Source: Patient
All other systems: Reviewed and negative
Neuro: Other (Diplopia with primary gaze); Negative Dizzy or Headache
Physical Exam
-
General: No Apparent Distress and Appears Stated Age
Eyes: Round OU, Vamo Conjunctivae and No Ptosis
HEENT: Anicteric and Moist Mucous Membranes
Neck: Full Range of Motion
Respiratory: No Dyspnea
Cardiac: No JVD
GI: Non-distended
Skin: Unremarkable
Extremities: No Clubbing, No Cyanosis and No Edema
Psych: Unable to Assess
Extended Neurological Exam
Mood & Affect: Unable to Assess
Attention Span & Concentration: Awake, Unable to Perform 2 Step Request and Other (Unable to perform some single step requests); Negative Alert or Interactive
Memory: Unable to Assess
Tremor: Hand Tremor Absent and Head Tremor Absent
Involuntary Movement: None
Speech: Mute
Cranial Nerve II: Left Eye: Pupillary Size Unremarkable and Unable to Assess Visual Fuentes
Cranial Nerve II: Right Eye: Pupillary Size Unremarkable and Unable to Assess Visual Fuentes
Cranial Nerves III, IV, : Extraocular Movement: Unable to Assess
Cranial Nerve VII: Facial Symmetry: Normal Facial Symmetry
Cranial Nerve VIII: Hearing: Unremarkable Hearing to Normal Conversational Volume
Cranial Nerves IX, X: Palate Movement: Unable to Assess
Cranial Nerve XI: Shoulder Shrug: Unable to Assess
Cranial Nerve XII: Tongue Protusion: Unable to Assess
Muscle Strength, Overall: Spontaneously Moves (All extremities)
Muscle Bulk & Tone: Bulk Unremarkable and Tone Unremarkable
Pronator Drift: Unable to Assess
Cold Sensation: Unable to Assess
Vibration Sensation: Unable to Assess
Coordination: Unable to Assess
Gait & Station: Unable to Assess
Data Reviewed
-
CT Head: Report Reviewed and Image Reviewed
Labs: Report Reviewed
Reviewed with: Physician and Nurse
Old Records: Summarized
Past History
Past History
ED Past Medical History: Arrthythmia, CVA, HTN, Hypercholesterolemia and NIDDM
ED Past Surgical History: Appendectomy, Orthopedic, Tonsilectomy and Other (Lung resection)
Social History
Tobacco: Non-smoker
Alcohol: None
Drug: None
Personal:
Living: with family
Family History
Family History: Other (reviewed and non-contributory)
Medications
-
Medications:
Generic Name Dose Route Start Last Admin
Trade Name Freq PRN Reason Stop Dose Admin
Acetaminophen 650 mg 03/18/25 07:33
Acetaminophen 325 Mg Tablet PO 04/15/25 07:32
Q4HPRN PRN
mild pain/PRADHAN/temp> 100.4F
Acetaminophen 650 mg 03/22/25 11:39 03/22/25 12:51
Acetaminophen 650 Mg Rectal Suppository RECTAL 04/19/25 11:38 650 mg
Q6HPRN PRN Administration
temp >100.4F
Allopurinol 100 mg 03/18/25 08:00 03/22/25 10:01
Allopurinol 100 Mg Tablet PO 04/15/25 07:59 Not Given
DAILY ЕЛЕНА
Atorvastatin Calcium 10 mg 03/19/25 18:00 03/21/25 17:39
Atorvastatin (Lipitor) 10 Mg Tablet PO 04/16/25 17:59 10 mg
QPM ЕЛЕНА Administration
Ampicillin Sodium/Sulbactam 120 mls @ 240 mls/hr 03/22/25 13:00 03/22/25 12:52
Sodium 3 gm/ Sodium Chloride IV 120 mls
Q6 ЕЛЕНА Administration
Lisinopril 5 mg 03/18/25 08:00 03/22/25 10:01
Lisinopril 5 Mg Tablet PO 04/15/25 07:59 Not Given
BID ЕЛЕНА
Metoprolol Succinate 50 mg 03/18/25 08:00 03/22/25 10:01
Metoprolol 50 Mg Extended Release Tablet PO 04/15/25 07:59 Not Given
BID ЕЛЕНА
Crizotinib [Xalkori] 0 mg 03/18/25 20:00 03/22/25 10:01
250 Mg Capsule Po PO 04/15/25 19:59 Not Given
Bid BID ЕЛЕНА
Ondansetron HCl 4 mg 03/18/25 07:33
Ondansetron 4 Mg/2 Ml Vial IV 04/15/25 07:32
Q6HPRN PRN
nausea and vomiting
Polyethylene Glycol 17 grams 03/18/25 07:33
Polyethylene Glycol Powder 17 Grams Packet PO 04/15/25 07:32
DAILYPRN PRN
constipation
Rivaroxaban 20 mg 03/18/25 17:30 03/21/25 17:39
Rivaroxaban 20 Mg Tablet PO 04/15/25 17:29 20 mg
1730 ЕЛЕНА Administration
Sodium Chloride 0 flush 03/18/25 06:00
Sodium Chloride 0.9% (Flush) Syringe IV 04/15/25 05:59
PER PROTOCOL ЕЛЕНА
[2025-03-22] MEDS: LOPRESSOR 5 MG IV ×2 (14:22→18:24)
--- NOTE | 2025-03-22 14:25 | PTCARENOTE ---
Addendum entered by Sona Jimenez 03/22/25 16:41:
HR remains elevated. Cardiology notified, no further orders received at this time.
Original Note:
Pt's HR still elevated. Order received for IVP Metoprolol; administered as ordered.
[2025-03-22 14:49] LABS: Urine Albumin 2+ (Neg - Trace); Urine Bilirubin Negative (Negative); Urine Character Clear (Clear); Urine Color Yellow; Urine Glucose Negative (Negative); Urine Ketone 3+ (Negative); Urine Leukocyte 1+ (Negative); Urine Nitrite Negative (Negative); Urine Occult Blood 4+ (Negative); Urine Specific Gravity 1.025 (<1.030); Urine Urobilinogen Negative (Neg - 1+)
[2025-03-22 15:17] LABS: Urine Mucus Moderate; Urine Squamous Cell 0-2 /LPF (Few)
[2025-03-22 15:18] LABS: Urine Bacteria Many (Negative); Urine Red Blood Cell 50-60 /HPF (0-2)
[2025-03-22] MEDS: 0.45%NACL 1000 IV (15:40)
[2025-03-22] MEDS: OFIRMEV 100 IV (17:06)
[2025-03-22] MEDS: LIPITOR PO (17:21)
[2025-03-22] MEDS: XARELTO PO (17:21)
--- NOTE | 2025-03-22 17:22 | PTCARENOTE ---
Pt afebrile. IV Tylenol administered; see MAR.
[2025-03-22] MEDS: LANOXIN 250 MCG IV (21:46)
[2025-03-22] MEDS: LOPRESSOR 7.5 MG IV (23:45)
[2025-03-23] VITALS (65 sets, daily range): BP systolic 81–128; BP diastolic 48–103; BMI 36.1
--- NOTE | 2025-03-23 00:45 | PTCARENOTE ---
Pt with labored respirations, RR 40, SaO2 84% on bipap 12/8 with 2L. Increased O2 to 8L, pt currently satting 90-91%. Respiratory therapist aware.
--- NOTE | 2025-03-23 00:53 | PTCARENOTE ---
Pt with labored respirations, RR 40, SaO2 84% on bipap 14/10 with 2L. Increased O2 to 8L, pt currently satting 90-91%. Respiratory therapist aware.
[2025-03-23] MEDS: OFIRMEV 100 IV (01:52)
--- NOTE | 2025-03-23 04:31 | W.PN.UPDATE ---
Update Note
Progress Note Update
-Patient with increased of oxygen demands, desatting/ SPO2 low 80s while on Bipap/2 L of O2. O2 increased to 8L and Bipap setting adjusted. Patient continue to desatting. Nursing was able to suction large amount of secretion from the patient
mouth/throat.
-New orders of covid/flu, chest x-ray and abg.
-Covid/ flu (Neg)
-Abg result noted and patient placed on highflow.
-Chest x-ray result is pending.
-Will continue IMU level
[2025-03-23 04:46] LABS: % Basophils 0.3 % (0-2); % Immature Granulocytes 0.8 % (0-0.5); % Lymphocytes 4.5 % (20.5-51.1); % Monocytes 7.8 % (1.7-9.3); % Neutrophils 86.6 % (42.2-75.2); Absolute Basophils 0.1 10^3/uL (0-0.2); Absolute Immature Granulocytes 0.2 10^3/uL (0-0.05); Absolute Lymphocytes 0.9 10^3/uL (1.2-3.4); Absolute Monocytes 1.6 10^3/uL (0.1-0.6); Absolute Neutrophils 18.2 10^3/uL (1.4-6.5); Hematocrit 49.8 % (39.0-52.0); Hemoglobin 16.8 g/dL (13.0-18.0); Mean Corp Hgb Conc. 33.7 g/dL (33.0-37.0); Mean Corpuscular Hgb 30.2 pg (27.0-31.0); Mean Corpuscular Volume 89.6 fL (80.0-94.0); Nucleated Red Blood Cells % 0 % (-); Platelet Count 180 10^3/uL (130-400); Red Blood Cell Count 5.56 10^6/uL (4.70-6.10); Red Cell Dist. Width 13.5 % (11.5-14.5)
--- NOTE | 2025-03-23 04:48 | PTCARENOTE ---
Copious amounts of mucous suctioned from patient's throat/mouth. SaO2 remains 90% on bipap with 8L. Pt continues to have frequent bursts of tachycardia, up to 170-190s. PUBLIC OPINION SURVEY TAKER aware. CXR ordered for the am. Flu/covid swabs sent. blood/urine cx still
pending at this time.
[2025-03-23 05:11] LABS: Blood Urea Nitrogen 25 mg/dl (9-20); Calcium 8.5 mg/dl (8.4-10.2); Carbon Dioxide 23 mmol/L (22-30); Chloride 107 mmol/L (98-107); Estimated Creatinine Clearance 71 ml/min; Glucose 115 mg/dl (70-99); Magnesium 2.3 mg/dl (1.6-2.3); Potassium 4.5 mmol/L (3.5-5.1); Sodium 140 mmol/L (135-145); eGFR 54.41
[2025-03-23 05:12] LABS: COVID-19 Antigen Negative (Negative)
[2025-03-23 05:22] LABS: B.E. -0.5 mmol/L; HCO3 23.2 mmol/L (21-28); O2 Saturation % 90.6 % (94-98); PCO2 35 mmHg (35-48); pH 7.43 (7.35-7.45)
[2025-03-23 05:24] LABS: PO2 59 mmHg (83-108)
[2025-03-23] MEDS: UNASYN IV ×4 (05:34→23:54)
[2025-03-23] MEDS: LOPRESSOR 7.5 MG IV (05:35)
[2025-03-23] MEDS: 0.45%NACL 1000 IV (05:37)
--- NOTE | 2025-03-23 08:00 | PTCARENOTE ---
Patient needed to be put on high flow early this morning. SPO2 only 88-90% since change of shift on HF and added nonreabreather without improvement. Fever this morning of 101.9. He's tachycardic at 130s-140, and jumps to 190s at times despite
Metoprolol IV, last given at 0530. Patient is unresponsive, even to sternal rub. TT to , awaiting reply.
[2025-03-23 08:28] LABS: Glucose - Point of Care 120 mg/dl (70-99)
--- NOTE | 2025-03-23 08:30 | PTCARENOTE ---
Received patient from IMU, intubated for increased O2 needs and unable to protect airway, ET size 8 @ 26cm lip, A&Ox0, unresponsive, not sedated, Afib RVR runs from 120s to 190s, BP borderline, Doppler pulses, OGT inserted @75cm to LIS, draining
brown color, White in place, michael urine.
Amiodarone drip ordered by Dr. Rosales and Phenylephrine drip ordered by boiler/chiller technician.
--- NOTE | 2025-03-23 08:30 | CON.INTV ---
Consultation
Consultation Request
Date/Time Consultation Requested: 03/23/2025
Date/Time Consultation Performed: 03/23/2025
Requesting Provider: Dr. Rosales
Performing Provider: Dr. Reddy
Reason for Consultation: Respiratory distress
Medical History
-
Chief Complaint: Change in mental status
History of Present Illness:
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
change in mental status. The reports that the patient has not been acting himself. 911 called and when EMS arrived the patient was mottled, clammy and vomited. Blood sugar was 114. Over the last 3-4 days the patient's been having memory
lapses with increased confusion. Patient was admitted to the hospitalist service for altered mental status with neurology consulted. CT head on 03/17/2025 showed no acute intracranial abnormality. Brain MRI on 03/18/2025 showed multiple acute
infarcts, largest in the left cerebellum as well as other acute infarcts in bilateral occipital lobes, polly and right thalamus. He developed a burst of A-fib with RVR with ventricular rate in the 150s on the afternoon of 03/22, cardiology made
aware. In the arts manager hours of 03/23, patient developed significant shortness of breath and increased oxygen requirements. He was placed onto 8 L/min via mid flow nasal cannula. He then developed copious amounts of mucus which was suctioned
from his throat/mouth and then he was transition to BiPAP with heart rate jumping up to as high as 170�190s. Patient was transferred to the IMU for high flow nasal cannula + NRB. He also had a fever on the morning of 03/23 to 101.9 �F. He then
became unresponsive and was transferred to the ICU where he was subsequently intubated by anesthesia. Make Up Girl services consulted for additional management/recommendations.
Patient previously followed with us in the [facility] office with last visit January 21, 2023. He had a right lower lobe 2.1 x 1.8 cm nodule which was diagnosed via percutaneous biopsy in March 2022 as adenocarcinoma. Treated at [facility] with lobectomy. According to documentation, the patient reached a point where there was no cancer recurrence and he is maintained on maintenance therapy with Xalkori. He was told to continue following up with us as needed.
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
PSHx: Lumbar discectomy x 2, tonsillectomy, appendectomy, multiple cyst removals from back, cardioversion, right lung cancer surgery (04/24/2022 � [place])
Past Medical History
Past Medical History: Other (Above as per HPI)
Past Surgical History: Other (Above as per HPI)
Social History
Tobacco: Former Smoker (Smoked <1 PPD for 2 years, quit in 1974)
Alcohol: None
Drug: None
Environmental Exposures: Radon exposure
Family History
Family History: CAD (Father (triple bypass)) and Cancer (Mother: Lung cancer)
Allergies / Home Medications
Allergies
Allergy/AdvReac Type Severity Reaction Status Date / Time
codeine Allergy nervous/anx Verified 03/22/25 21:31
ious
Home Medications
�Medication �Instructions �Recorded �Confirmed �Last Taken �Type
atorvastatin 10 mg tablet 10 mg PO Q48H High Cholesterol 05/29/19 03/18/25 1 Day Ago History
~03/17/25
lisinopril 5 mg tablet 5 mg PO BID Blood Pressure 05/29/19 03/18/25 1 Day Ago History
~03/17/25
rivaroxaban 20 mg tablet (Xarelto) 20 mg PO 1730 08/01/19 12/15/24 12/04/22 History
allopurinol 100 mg tablet 100 mg PO DAILY Gout 03/25/22 03/18/25 1 Day Ago History
~03/17/25
metoprolol succinate 50 mg 50 mg PO BID Heart 06/03/22 03/18/25 1 Day Ago History
tablet,extended release 24 hr Disease/Condition ~03/17/25
crizotinib 250 mg capsule (Xalkori) 250 mg PO BID 08/31/22 03/18/25 1 Day Ago History
~03/17/25
albuterol 90 mcg/actuation aerosol 2 mcg inhalation Q4H PRN SOB 12/15/24 03/18/25 Unknown History
inhaler
furosemide 20 mg tablet 20 mg PO MOWEFR Fluid 12/15/24 03/18/25 Unknown History
Retention/Swelling
loperamide 2 mg tablet 2 mg PO Q6H PRN diarrhea 12/15/24 03/18/25 1 Day Ago History
~03/17/25
Review of Systems
-
Unable to Obtain full review of systems at this time due to: Patient Intubation
Vitals / Labs / Diagnostic Testing
Vital Signs
Temp Pulse Resp BP Pulse Ox
102.5 F H 117 35 117/48 93
03/23/25 08:47 03/23/25 06:00 03/23/25 06:00 03/23/25 06:00 03/23/25 08:52
Lab Data
03/23/25 04:28
03/23/25 04:28
Laboratory Results
03/22/25 03/22/25 03/23/25
09:34 09:40 05:11
PT 31.1 H
INR 2.95
APTT 39.0 H
pH 7.48 H 7.43
pCO2 36 35
pO2 118 H 59 L*
HCO3 26.8 23.2
O2 Delivery Level
Microbiology
03/23/25 04:35 Nasal Swab Influenza Types A & B (TOMA) - Final
Negative for Influenza A & B, NAAT
Negative results must be combined with clinical observations
and patient history.
Nucleic Acid Amplification test (NAAT)performed on the
[employer] platform.
Diagnostic Testing:
Physical Exam
-
HEENT: Anicteric and Other (ETT in place)
Cardiovascular: Irregular Rhythm (Irregularly irregular), Peripheral Edema (Trace LE edema bilaterally) and Other (Tachycardia)
Respiratory: Wheeze (negative), Rales (Right hemithorax), Rhonchi (Right hemithorax), Non-Labored Respirations and Other (Mechanical breath sounds heard bilaterally)
GI: Soft, Distended (Abdominal obesity), Non Tender and Normal Bowel Sounds
Neurology: Tremors (negative) and Other (Unresponsive with right pupil 3 mm and unreactive, left pupil 2 mm and sluggish, intact corneal reflexes bilaterally and intact gag reflex)
Skin: Warm and Dry
General: Respiratory Distress (negative), Fever (negative) and Chills (negative)
Assessment
-
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
presents with change in mental status. The reports that the patient has not been acting himself. 911 called and when EMS arrived the patient was mottled, clammy and vomited. Blood sugar was 114. Over the last 3-4 days the patient's been
having memory lapses with increased confusion. Patient was admitted to the hospitalist service for altered mental status with neurology consulted. CT head on 03/17/2025 showed no acute intracranial abnormality. Brain MRI on 03/18/2025 showed multiple
acute infarcts, largest in the left cerebellum as well as other acute infarcts in bilateral occipital lobes, polly and right thalamus. He developed a burst of A-fib with RVR with ventricular rate in the 150s on the afternoon of 03/22, cardiology made
aware. In the arts manager hours of 03/23, patient developed significant shortness of breath and increased oxygen requirements. He was placed onto 8 L/min via mid flow nasal cannula. He then developed copious amounts of mucus which was suctioned
from his throat/mouth and then he was transition to BiPAP with heart rate jumping up to as high as 170�190s. Patient was transferred to the IMU for high flow nasal cannula + NRB. He also had a fever on the morning of 03/23 to 101.9 �F. He then
became unresponsive and was transferred to the ICU where he was subsequently intubated by anesthesia. Make Up Girl services consulted for additional management/recommendations.
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
Impression:
#Right lung whiteout due to mucous plugging +/- aspiration - -> spiked fever on 03/22 and this is when he became more confused/encephalopathic which culminated on the morning of 03/23
#R-sided CAP/aspiration pneumonia with mucous plugging
#Acute respiratory failure with hypoxia due to above
#COLIN
#Leukocytosis (reactive as well as due to sepsis from right-sided aspiration pneumonia)
#Ischemic CVA involving right thalamus, left cerebellum, left anterior polly as well as occipital lobes bilaterally; abnormal 8 mm FLAIR hyperintense signal in the cortex of the paramedian right parietal�occipital junction which could be cytotoxic
edema versus a small metastatic focus
#Hx of RLL adenocarcinoma (Dx 03/2022) s/p right lower lobectomy (performed at [place])
#Obesity
#Paroxysmal A-fib on Xarelto with elevated INR, now with A-fib with RVR
#RV dilation with mild pulmonary hypertension
Plan:
- Patient was brought to the ICU and emergently intubated by anesthesia
- Continue with mechanical ventilation with daily SAT/SBT if clinically appropriate
- Maintain plateau pressure <30 and titrate FiO2 + PEEP to keep SpO2 >90-94%
- Continue aspiration precautions; keep HOB >30-45�
- prn nebulized bronchodilators - not currently bronchospastic
- Oropharyngeal + deep ETT suctioning with subglottic as needed
- Daily CXR + blood gas
- Daily vent adjustments as needed based on blood gas and SaO2
- Low level of sedation with goal RASS as 0 to -2
- Pulmonary toilet is peguero
- Start mucolytics with nebulized 3%, nebulized albuterol + Atrovent and switch to support bed
- Start broad-spectrum antibiotics with Unasyn
- Check respiratory culture; follow-up blood cultures; check urine antigens for Legionella + strep pneumonia; check MRSA swab
- If above interventions do not open up right lung then he will need bronchoscopy
- Given his severe aspiration pneumonia, start Solu-Cortef 50 mg IV q6hr
- I believe that his pneumonia is community-acquired and not hospital-acquired, as CXR from 03/19/2025 showed unilateral right-sided opacification with a pleural effusion and air bronchograms concerning for pneumonia with a parapneumonic effusion
- Check right sided chest US to see if there is a pocket for diagnostic/therapeutic thoracentesis
- Once patient stable to transport off the floor, repeat CT head and also check CT chest, abdomen, pelvis (no contrast needed for my purposes)
- Maintain SpO2 >90-94%
- Maintain MAP>65
- Need to control HR with goal <110
- Start amiodarone drip; give dose of digoxin
- ventual resumption of BB if BP stable
- Replete electrolytes with K>4, Mg>2
- Renally dose all meds/ABx; trend sCr, strict I/O
- Maintain euglycemia with goal BG 140-180; HbA1C: 5.4 (03/19/2025)
- Trend H/H and transfuse if needed to keep Hb>7g/dL; keep plt>20k, unless there is concern for bleeding then keep plt>50k
- DVT ppx: Xarelto (trend INR and if continues to rise then consider holding xarelto)
Code status: Full code
Guarded prognosis
Continue ICU level of care for this critically ill patient.
Critical care statement: A total of 38 minutes of critical care time was provided for this patient today. This includes management of unstable vital signs, evaluation of the patient at bedside, reviewing the patient's pertinent medical records
including radiographs, microbiology, laboratory evaluations, and discussion with primary team, consultants, pharmacy, nutrition, physical therapy, case management, charge nurse, critical care nursing, and respiratory therapy.
Data:
CXR 03/23/2025: Increased, now near complete opacification of the right hemithorax secondary to a combination of pleural fluid and atelectasis. The left lung is clear. Mild shift of the mediastinal structures to the right. Chronic degenerative
changes of the spine.
Transthoracic echocardiogram 03/19/2025:
1. Normal left ventricular size and function, ejection fraction 65-70%
2. Mildly thickened mitral leaflets with trace mitral regurgitation and normal
left atrium
3. Mild aortic sclerosis with trace aortic regurgitation
4. Dilated right ventricle with preserved systolic function, pulmonary artery
systolic pressure is 33 mmHg
5. Pericardial fat pad
6. The ascending aorta is 3.7 cm
In June 2024, the rhythm was atrial fibrillation. The ejection fraction
was 55-60%. The right ventricle was normal in size. The left atrium was
mildly dilated. The pulmonary artery systolic pressure was 36 mmHg.
Brain MRI w/o blas 03/18/2025:
Multiple acute infarcts, largest in the left cerebellum. Other acute infarcts in the bilateral occipital lobes, polly, and RIGHT thalamus.
0.8 cm FLAIR hyperintense signal in the cortex of the paramedian right parieto-occipital junction. This does not clearly correspond to CYTOTOXIC edema from an acute infarct. A small metastatic focus would be difficult to exclude with a history of
metastatic small cell lung cancer. If follow-up imaging is performed, without and with intravenous contrast would be recommended.
--- NOTE | 2025-03-23 08:35 | PTOTSP ---
DRESS CAP MAKER Note
Patient transferred to [id number], now requiring HFNC. New orders required to continue DRESS CAP MAKER services if/when mentation and respiratory status appropriate.
--- NOTE | 2025-03-23 08:40 | RR ---
A Rapid Response was called on this patient, please see Rapid Response form.
--- NOTE | 2025-03-23 08:49 | W.PN.ANESINT ---
Anesthesia Intubation Note
- Intubation Note
Intubation Note:
Diagnosis:
Respiratory distress... patient unresponsive on arrival
Blade:
glide # 4
Tube Size:
8.0 ETT at right lip
Depth:
22 cm at lip
Side Taped:
right
Drugs Used:
Propofol 60 mg IV
Grade View: Grade 1
EtCO2 Present: +ETCO2
Atraumatic: yes
Attempts: 1
Insertion Start and Stop Time: 6983-7610
SaO2 Pre: 92
SaO2 Post: 90's
Glidescope Used: yes
Other Airway Adjustments:
Pre-Oxygenated:
NRB mask on arrival then ambu bag ventilation
Portable Chest X-Ray:
pending
RSI:
Suctioned:
Bilateral Breath Sounds Confirmed: yes
Vent Settings: see ICU/respiratory flow sheet.
Settings per ___Attending Physician
[2025-03-23] MEDS: CORDARONE 103 MG IV (09:32)
[2025-03-23 09:35] LABS: B.E. -0.9 mmol/L; HCO3 22.6 mmol/L (21-28); O2 Saturation % 96.7 % (94-98); PCO2 34 mmHg (35-48); PO2 81 mmHg (83-108); pH 7.43 (7.35-7.45)
[2025-03-23] MEDS: CORDARONE 518 MG IV (09:51)
[2025-03-23] MEDS: ZESTRIL PO (11:19)
[2025-03-23] MEDS: ZYLOPRIM PO (11:19)
[2025-03-23] MEDS: NON-FORMULARY ITEM PO (11:19)
[2025-03-23] MEDS: TOPROL XL PO (11:19)
--- NOTE | 2025-03-23 11:23 | W.PN.HOSP.TC ---
Today's Communication/Plan
-
Total Critical Care Time__60___ minutes. I was immediately available to the patient and staff. I personally examined, reviewed labs, diagnostic images/reports, interpretations, treatment plans, discussed patient care with other providers and
family or caregivers (if patient is unable to make decisions), entered orders as appropriate and documented the medical record.
Assessment / Plan
Assessment / Plan
Impression:
Presentation with altered mental status.
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
Acute hypoxic respiratory failure.
Aspiration pneumonia, severe with right lung collapse.
Sepsis secondary to aspiration pneumonia
Acute kidney injury
Conditions prior to admission:
Chronic atrial fibrillation
Anticoagulation with Xarelto
Essential hypertension.
Lung adenocarcinoma status post lymph node dissection on Xalkori
History of malignant pleural effusion right
Plan:
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
CT scan of the head with no acute abnormalities per
MRI of the brain findings consistent with multiple acute infarcts, largest in the left cerebellum. Other sites including bilateral occipital lobes, polly, left thalamus.
CTA Occlusions of the distal V4 segments of the bilateral vertebral arteries from just beyond the branches of the bilateral posterior inferior cerebellar arteries to the origin of the basilar artery. Alternatively, it may just be the distal left V4
segment that is occluded, with the right V4 segment being hypoplastic with drainage into the right PICA and an absent distal course, which is an anatomic variant.
Large right pleural effusion.
Echocardiogram with preserved biventricular function and no evidence of cardioembolic source.
Patient has been on anticoagulation with Xarelto [employer].
Remains lethargic poorly responsive with no particular improvement of neurologic status over the last 24 [address] of the head scan on 03/22 with concern for new small focus of decreased density within the left thalamus which likely subacute infarct. These findings also new when compared to MRI of the brain in March 18, although no comment in comparison
with CT scan from 03/19.
Serial ABG with no evidence of respiratory acidosis/CO2 retention
Progressively deteriorating neurologic status with developed aspiration syndrome.
Follow-up CT scan of the head 03/23 with multiple bilateral acute/subacute embolic infarcts. No evidence for hemorrhagic transformation
Continue anticoagulation with Xarelto
Intubated
Plan is to monitor neurologic status and for neurologic recovery with attempt to wean off sedation once hemodynamically stable.
Consider EEG
Acute hypoxic respiratory failure secondary to aspiration pneumonia
Aspiration pneumonia with bilateral infiltrates.
Follow-up chest x-ray and CT scan confirming complete right lung opacification and smaller left-sided infiltrate
Acute hypoxic respiratory failure secondary to above
VDRF.
� Intubated on 03/23 secondary to respiratory distress and hypoxia
Sepsis secondary to aspiration pneumonia
Septic shock
Transferred to ICU.
Continue AC vent support.
May require bronchoscopy
Follow-up chest x-ray.
Antibiotics initiated on 03/22/Unasyn covering aspiration pathogens.
IV fluid bolus
Initiated on phenylephrine titrate to MAP 55-60
Acute kidney injury secondary to hypotension and hypoxia.
Maintain White catheter as below open
Continue vasopressors avoiding hypotension.
Follow creatinine and urine output
Acute urine retention baseline White catheter placed on 03/20.
Urine cultures pending
Chronic atrial fibrillation
Rapid ventricular response secondary to hypoxia
Hold metoprolol
Initiated amiodarone with addition of digoxin load
Anticoagulation with Xarelto
Essential hypertension.
Hold metoprolol, Zestril secondary to hypotension
Dyslipidemia, Lipitor increased from 10 to 80 mg
Lung adenocarcinoma.
History of lymph node dissection.
Currently on Xalkori. Hold secondary to acute infection
'If above related hypercoagulable state reason for multifocal embolic CVA
History of right malignant pleural effusion.
Recurrent and moderate to large in size right pleural effusion incidentally noted on CTA.
Follow-up ultrasound confirming mild nonpalpable effusion
Goals of care discussion with patient's and daughter.
Patient is a 69 years old male with metastatic lung carcinoma who presented with embolic stroke with severe neurologic sequela including protracted encephalopathy and now severe aspiration pneumonia and septic shock requiring ICU care and invasive
ventilation. Currently prognosis is guarded. Plan is to monitor closely in terms of neurologic and respiratory status recovery.
Anticipated Discharge: > 48 hours
Subjective/Interval History
-
Date of Service: March 23, 2025
Objective Data
-
Labs:
Laboratory Results
03/23/25 03/23/25 03/23/25
04:28 05:11 09:18
WBC 21.0 H
Hgb 16.8
Hct 49.8
Plt Count 180
HCO3 23.2 22.6
Sodium 140
Potassium 4.5
Chloride 107
Carbon Dioxide 23
BUN 25 H
Creatinine 1.4 H
Glucose 115 H
Calcium 8.5
Vital Signs:
Vital Signs
Temp Pulse Resp BP Pulse Ox
102.5 F H 117 35 117/48 95
03/23/25 08:47 03/23/25 06:00 03/23/25 06:00 03/23/25 06:00 03/23/25 11:07
I&O
03/22/25 03/23/25 03/24/25
06:59 06:59 06:59
Intake Total 1250 / 1250
Output Total 1190 / 1190 850 / 850
Balance -1190 / -1190 400 / 400
Physical Exam
-
General: Respiratory Distress
HEENT: Normocephalic, Atraumatic, Moist Mucous Membranes and PERRLA
Respiratory: Clear to Auscultation
Cardiac: Regular Rhythm and S1/S2; Negative Murmur, Rub or Gallop
GI: Soft, Nontender, Nondistended and Normal Bowel Sounds; Negative Organomegaly
Rectal: Deferred by Provider
Musculoskeletal: No Clubbing, No Cyanosis and No Edema
Skin: Negative Rash
Neuro: Other (Obtunded in respiratory distress not following commands)
[2025-03-23] MEDS: ATROVENT NEBULES 0.5 MG INH ×3 (11:24→20:26)
[2025-03-23] MEDS: SODIUM CHLORIDE 3% FOR INHALATION 1 VIAL INH ×3 (11:24→20:26)
[2025-03-23] MEDS: VENTOLIN NEBULES 1.25 MG INH ×3 (11:24→20:26)
[2025-03-23] MEDS: NEO-SYNEPHRINE 250 IV (11:27)
[2025-03-23] MEDS: LANOXIN 250 MCG IV (11:39)
--- NOTE | 2025-03-23 12:00 | PTCARENOTE ---
Reassessed the patient, neuro status unchanged, Right pupil 3mm fixed, Left pupil 2mm sluggish, weaning FiO2 by RT.
--- NOTE | 2025-03-23 12:33 | W.PN.CARDCBS ---
Today's Communication / Plan
-
Overall prognosis poor
Await CAT scan and neurologic input
Not a candidate for DELANO
Might consider changing Xarelto to Eliquis for possible Xarelto failure given possible cardiac embolic event on Xarelto
May need IV heparin if remains n.p.o.
Continue antibiotics for severe pneumonia
Impression / Plan
-
Primary Payment Collector: Dr. Roman
Assessment:
VDRF, intubated 03/23/2025
Severe right sided pneumonia
Acute diastolic CHF
Presentation with confusion, change in mental status
Multiple posterior circulation distribution infarcts
Mod R pleural effusion
Fever
Recent covid illness
Stage IV adenocarcinoma of right lung status post right lower lobectomy 04/2022, considered to be in remission on chronic Xalkori, followed by [facility]
History of malignant right pleural effusion status post thoracentesis 05/2022
Paroxysmal atrial fibrillation
Chronic Xarelto therapy
Hypertension
Hyperlipidemia
ECHO 03/19/25: EF 65 to 70%, trace MR, mild aortic sclerosis, trace AR, dilated RV with preserved function, PAP 33 mmHg, pericardial fat pad
Plan:
Cardiology initially consulted for DELANO but not felt to be a candidate given poor mental status
He has new possible embolic CVA
Could be considered Xarelto failure and could consider change to Eliquis if recovers
Remains in poorly controlled A-fib despite IV amiodarone. Also requiring phenylephrine for blood pressure support
Unable to give IV Cardizem or IV beta-paddy given hypotension
May need IV heparin if remains n.p.o.
Overall prognosis remains poor especially given metastatic lung cancer
Discussed with semi automatic sewing machine operator who has patient on antibiotics
Discussed with patient and family at bedside as well as nursing
Critical care time 35 minutes
Progress Note - Payment Collector
Subjective
Date of Service: March 23, 2025
Intubated and unresponsive
Objective
Labs:
03/23/25 04:28
03/23/25 04:28
Labs
Hgb 16.8 g/dL (13.0-18.0) 03/23/25 04:28
Hct 49.8 % (39.0-52.0) 03/23/25 04:28
Plt Count 180 10^3/uL (130-400) 03/23/25 04:28
PT 31.1 Sec (11.4-14.6) H 03/22/25 09:40
INR 2.95 03/22/25 09:40
APTT 39.0 Sec (23.4-35.0) H 03/22/25 09:40
Sodium 140 mmol/L (135-145) 03/23/25 04:28
Potassium 4.5 mmol/L (3.5-5.1) 03/23/25 04:28
BUN 25 mg/dl (9-20) H 03/23/25 04:28
Creatinine 1.4 mg/dL (0.7-1.3) H 03/23/25 04:28
Glucose 115 mg/dl (70-99) H 03/23/25 04:28
Troponins
03/22/25
09:40
Troponin I < 0.012
Vital Signs and I&O:
Vital Signs
Temp Pulse Resp BP Pulse Ox
101.5 F H 112 24 117/48 95
03/23/25 12:00 03/23/25 11:30 03/23/25 11:30 03/23/25 06:00 03/23/25 11:30
Vital Signs
Temp Pulse Resp BP Pulse Ox
101.5 F H 112 24 117/48 95
03/23/25 12:00 03/23/25 11:30 03/23/25 11:30 03/23/25 06:00 03/23/25 11:30
Intake & Output
06/09/0403/22/25 03/23/25 03/24/25
06:59 06:59 06:59 06:59
Intake Total 480 / 480 1250 / 1250
Output Total 1150 / 1150 1190 / 1190 850 / 850
Balance -670 / -670 -1190 / -1190 400 / 400
Physical Exam
Physical Exam
General: Intubated and unresponsive
Neck: Supple, no JVD, HJR, carotids +2 B/L, no bruits bilaterally.
Heart: Non displaced PMI, irregular, no murmurs, No S3, S4, no rubs.
Lungs: Scattered rhonchi throughout
Extremities: No clubbing, cyanosis or edema bilaterally.
Neuro: Intubated and unresponsive
--- NOTE | 2025-03-23 13:58 | CM ---
Chart reviewed and patient has transferred to ICU.
Plan; Patient transferred to ICU.
[2025-03-23] MEDS: SOLU-CORTEF 50 MG IV ×3 (14:46→23:54)
--- NOTE | 2025-03-23 16:07 | CM ---
Discharge POC: Was acute rehab prior to intubation. Will await updated therapy notes when extubated.
--- NOTE | 2025-03-23 16:30 | PTCARENOTE ---
Reassessed the patient, unresponsive, ongoing fever spiked up to 104F w/ rectal temp probe, 103F axillary, PRN Tylenol given, ice packs applied.
[2025-03-23] MEDS: TYLENOL/FEVERALL 650 MG RECTAL (17:34)
[2025-03-23] MEDS: XARELTO 20 MG TUBE (17:46)
[2025-03-23] MEDS: LIPITOR 10 MG TUBE (17:47)
--- NOTE | 2025-03-23 18:30 | PTCARENOTE ---
Asked patient's daughter Carla to bring medication CRIZITONIB home as we hold it off.
--- NOTE | 2025-03-23 20:00 | PTCARENOTE ---
Received pt intubated. Withdraws to painful stimuli. No purposeful movements but noted all extremities to be moving. No eye opening. Weak gag. + corneals. NIH = 30. Afib on tele, HR 120-130s. Remains on amiodarone gtt at 0.5mg/min. DEREK Siegel
aware of elevated HR - monitoring for now. On chin gtt at 20mcg to maintain MAP>65. +1 LE edema. Temp 102.5 rectal but continuing to come down. Ice packs in place. #8 ETT, 26cm, moved to the right. Tolerating A/C 24/450/+8/60%. Spo2 94%. Suctioned
ETT for large amt thick, babin secretions. Abdomen round, obese. OG tube to LIWS with brown output. Incontinent of bowel. White draining michael urine. Mouth care provided.
[2025-03-23] MEDS: SUBLIMAZE 50 MCG IV (22:00)
[2025-03-23] MEDS: LR 250 IV (23:03)
--- NOTE | 2025-03-23 23:08 | W.PN.UPDATE ---
Update Note
Progress Note Update
Procedure Note: Arterial Line�
� Left Wrist Arrow 20 (12/12)�
Diagnosis:��Acute respiratory failure
IV Line Comments: Uneventful Procedure�
Omer's test completed pre-procedure: Yes�
A-Line Comments: Sterile technique as per standard protocol, Ultrasound guided insertion�
Functioning A-line in situ: Yes�
A-line Insertion Start Time:�2214�
A-line in at:��2230
[2025-03-24] MEDS: LR 1000 IV (00:05)
--- NOTE | 2025-03-24 00:16 | PTCARENOTE ---
assumed care, pt intubated, +corneal, gag, and cough, WD to pain, during mouth care pt lifted R arm across body, B/L wrist restraints applied, occasional twitch of the lower extremities, no purposeful movement otherwise, pupils 2 sluggish, NIH 32,
Afib on the monitor, doppler pulses, B/L scds, +1 GA, L rad A-line, ETT #8 26 @ lip, AC 24/450/8/60%, SpO2 99, rhonchi, and coarse throughout, R side diminished, lrg thick babin secretions orally and from ETT, OGT 75 @ lip, BSx4 hyperactive, lrg liq
BM RT applied, White oliguric michael output, gtts per worklist, febrile ice packs applied, otherwise refer to documentation
[2025-03-24 03:40] LABS: B.E. -0.3 mmol/L; HCO3 22.9 mmol/L (21-28); O2 Saturation % 98.1 % (94-98); PCO2 33 mmHg (35-48); PO2 119 mmHg (83-108); pH 7.45 (7.35-7.45)
--- NOTE | 2025-03-24 03:41 | PTCARENOTE ---
systems reviewed, labs sent, eldest daughter called but not updated over the phone because shes not on the contact list, daughter visited the pt called mom and mom was updated over the phone, when daughter was speaking to pt he appeared to have more
movements of his lower extremities and R arm, these movements have been noticed with turns and mouth care, they are now happening without stimulating the pt, AUTO PARTS HANDLER notified and requested @ bedside, no new orders @ this time, otherwise refer to
documentation.
[2025-03-24 03:47] LABS: % Basophils 0.2 % (0-2); % Immature Granulocytes 0.7 % (0-0.5); % Monocytes 7.2 % (1.7-9.3); % Neutrophils 86.9 % (42.2-75.2); Absolute Basophils 0.1 10^3/uL (0-0.2); Absolute Immature Granulocytes 0.1 10^3/uL (0-0.05); Absolute Lymphocytes 1.1 10^3/uL (1.2-3.4); Absolute Monocytes 1.5 10^3/uL (0.1-0.6); Absolute Neutrophils 18.6 10^3/uL (1.4-6.5); Hematocrit 44.8 % (39.0-52.0); Hemoglobin 15.4 g/dL (13.0-18.0); Mean Corp Hgb Conc. 34.4 g/dL (33.0-37.0); Mean Corpuscular Volume 87.3 fL (80.0-94.0); Mean Platelet Volume 10.8 fL (7.4-10.4); Nucleated Red Blood Cells % 0 % (-); Platelet Count 175 10^3/uL (130-400); Red Blood Cell Count 5.13 10^6/uL (4.70-6.10); Red Cell Dist. Width 13.8 % (11.5-14.5); White Blood Cell Count 21.3 10^3/uL (4.8-10.8)
[2025-03-24 03:53] LABS: INR 3.97; PT 38.4 Sec (11.4-14.6)
[2025-03-24 03:54] LABS: APTT 48.1 Sec (23.4-35.0)
[2025-03-24] MEDS: NEO-SYNEPHRINE 250 IV ×2 (04:09→23:59)
[2025-03-24 04:11] LABS: ALT (SGPT) 27 U/L (0-50); AST (SGOT) 29 U/L (17-59); Albumin 2.9 g/dl (3.5-5.0); Alkaline Phosphatase 88 U/L (38-126); Blood Urea Nitrogen 48 mg/dl (9-20); Calcium 8.2 mg/dl (8.4-10.2); Carbon Dioxide 21 mmol/L (22-30); Chloride 109 mmol/L (98-107); Estimated Creatinine Clearance 43 ml/min; Glucose 176 mg/dl (70-99); Magnesium 2.7 mg/dl (1.6-2.3); Phosphorus 3.2 mg/dl (2.5-4.5); Potassium 3.7 mmol/L (3.5-5.1); Sodium 140 mmol/L (135-145); Total Protein 5.5 g/dl (6.3-8.2); eGFR 29.99
[2025-03-24 04:26] LABS: NT-proBNP 477 pg/ml
[2025-03-24] MEDS: UNASYN IV ×4 (05:09→23:11)
[2025-03-24] MEDS: SOLU-CORTEF 50 MG IV ×3 (05:09→17:35)
[2025-03-24 05:34] VITALS: BMI 35.9
[2025-03-24] MEDS: KCL 160 MEQ IV (05:58)
[2025-03-24] MEDS: SODIUM CHLORIDE 3% FOR INHALATION 1 VIAL INH ×4 (07:27→19:24)
[2025-03-24] MEDS: VENTOLIN NEBULES 1.25 MG INH ×4 (07:27→19:24)
[2025-03-24] MEDS: ATROVENT NEBULES 0.5 MG INH ×4 (07:27→19:24)
--- NOTE | 2025-03-24 08:30 | W.PN.INTV ---
Today's Communication / Plan
Recommendations
Continue mechanical ventilation
Pulmonary toilet
Nebulized 3% + nebulized bronchodilators with support bed
No utility in bronchoscopy or thoracentesis as family is planning to withdraw care tomorrow with terminal extubation
Patient is now DNR/okay to continue being intubated
Family members need to come by tomorrow to see if they are devise
Emotional support was provided to the family today (, Elisa, and daughter, Alida) - neurology also spoke to the family which further solidified their decision to withdraw tomorrow
Continue ICU level of care for this critically ill patient
Assessment
-
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
presents with change in mental status. The reports that the patient has not been acting himself. 911 called and when EMS arrived the patient was mottled, clammy and vomited. Blood sugar was 114. Over the last 3-4 days the patient's been
having memory lapses with increased confusion. Patient was admitted to the hospitalist service for altered mental status with neurology consulted. CT head on 03/17/2025 showed no acute intracranial abnormality. Brain MRI on 03/18/2025 showed multiple
acute infarcts, largest in the left cerebellum as well as other acute infarcts in bilateral occipital lobes, polly and right thalamus. He developed a burst of A-fib with RVR with ventricular rate in the 150s on the afternoon of 03/22, cardiology made
aware. In the finishing pan operator hours of 03/23, patient developed significant shortness of breath and increased oxygen requirements. He was placed onto 8 L/min via mid flow nasal cannula. He then developed copious amounts of mucus which was suctioned
from his throat/mouth and then he was transition to BiPAP with heart rate jumping up to as high as 170�190s. Patient was transferred to the IMU for high flow nasal cannula + NRB. He also had a fever on the morning of 03/23 to 101.9 �F. He then
became unresponsive and was transferred to the ICU where he was subsequently intubated by anesthesia. Stapler Hand services consulted for additional management/recommendations.
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
Impression:
#Right lung whiteout due to mucous plugging +/- aspiration - -> spiked fever on 03/22 and this is when he became more confused/encephalopathic which culminated on the morning of 03/23
#Bilateral CAP due to strep pneumonia/aspiration pneumonia with right-sided bronchial mucous plugging
#Acute respiratory failure with hypoxia due to above
#COLIN - worsening
#Leukocytosis (reactive as well as due to sepsis from right-sided aspiration pneumonia)
#Ischemic CVA involving right thalamus, left cerebellum, left anterior polly as well as occipital lobes bilaterally; abnormal 8 mm FLAIR hyperintense signal in the cortex of the paramedian right parietal�occipital junction which could be cytotoxic
edema versus a small metastatic focus
#Fevers likely due to ischemic infarcts
#Hx of RLL adenocarcinoma (Dx 03/2022) s/p right lower lobectomy (performed at [place])
#Obesity
#Paroxysmal A-fib on Xarelto with elevated INR, now with A-fib with RVR
#RV dilation with mild pulmonary hypertension
Plan:
- Patient was brought to the ICU and emergently intubated by anesthesia
- Continue with mechanical ventilation with daily SBT if clinically appropriate - he remains unresponsive hence highly unlikely we will be able to do SBT on him
- Patient remains off all sedation and remains unresponsive; avoid giving any sedating medications as this will interfere with prognostication
- Maintain plateau pressure <30 and titrate FiO2 + PEEP to keep SpO2 >90-94%
- Continue aspiration precautions; keep HOB >30-45�
- prn nebulized bronchodilators - not currently bronchospastic
- Oropharyngeal + deep ETT suctioning with subglottic as needed
- Daily CXR + blood gas
- Daily vent adjustments as needed based on blood gas and SaO2
- Pulmonary toilet is peguero
- Continue mucolytics with nebulized 3%, nebulized albuterol + Atrovent and sport bed
- Continue broad-spectrum antibiotics with Unasyn
- Check respiratory culture; follow-up blood cultures; urine antigen for Streptococcus pneumonia is positive; Legionella urine Ag is negative; MRSA swab is negative
- If above interventions do not open up right lung then he will need bronchoscopy, however given patient's unresponsive state with family likely withdrawing care tomorrow, there is no utility in performing a bronchoscopy
- Given his severe aspiration pneumonia, continue Solu-Cortef 50 mg IV q6hr
- I believe that his pneumonia is community-acquired and not hospital-acquired, as CXR from 03/19/2025 showed unilateral right-sided opacification with a pleural effusion and air bronchograms concerning for pneumonia with a parapneumonic effusion
- Right-sided chest ultrasound showed a small/moderate size right-sided pleural effusion, and this is likely parapneumonic. However, given his unresponsive state with family planning to withdraw care tomorrow, no need to perform thoracentesis at
this time
- Maintain SpO2 >90-94%
- Maintain MAP>65
- Need to control HR with goal <110
- Continue amiodarone, however change to PO amiodarone as he will now be on amio gtt for >24 hrs andn would need a PICC if he were to remain on this; he is s/p digoxin
- Eventual resumption of BB if BP stable
- Replete electrolytes with K>4, Mg>2
- Renally dose all meds/ABx; trend sCr, strict I/O
- Maintain euglycemia with goal BG 140-180; HbA1C: 5.4 (03/19/2025)
- Trend H/H and transfuse if needed to keep Hb>7g/dL; keep plt>20k, unless there is concern for bleeding then keep plt>50k
- DVT ppx: Hold xarelto for now given his INR is trending upwards and is now 3.97
Code status: Full code
Guarded prognosis
Continue ICU level of care for this critically ill patient.
Critical care statement: A total of 41 minutes of critical care time was provided for this patient today. This includes management of unstable vital signs, evaluation of the patient at bedside, reviewing the patient's pertinent medical records
including radiographs, microbiology, laboratory evaluations, and discussion with primary team, consultants, pharmacy, nutrition, physical therapy, case management, charge nurse, critical care nursing, and respiratory therapy.
Data:
CXR 03/23/2025: Increased, now near complete opacification of the right hemithorax secondary to a combination of pleural fluid and atelectasis. The left lung is clear. Mild shift of the mediastinal structures to the right. Chronic degenerative
changes of the spine.
Transthoracic echocardiogram 03/19/2025:
1. Normal left ventricular size and function, ejection fraction 65-70%
2. Mildly thickened mitral leaflets with trace mitral regurgitation and normal
left atrium
3. Mild aortic sclerosis with trace aortic regurgitation
4. Dilated right ventricle with preserved systolic function, pulmonary artery
systolic pressure is 33 mmHg
5. Pericardial fat pad
6. The ascending aorta is 3.7 cm
In June 2024, the rhythm was atrial fibrillation. The ejection fraction
was 55-60%. The right ventricle was normal in size. The left atrium was
mildly dilated. The pulmonary artery systolic pressure was 36 mmHg.
Brain MRI w/o blas 03/18/2025:
Multiple acute infarcts, largest in the left cerebellum. Other acute infarcts in the bilateral occipital lobes, polly, and RIGHT thalamus.
0.8 cm FLAIR hyperintense signal in the cortex of the paramedian right parieto-occipital junction. This does not clearly correspond to CYTOTOXIC edema from an acute infarct. A small metastatic focus would be difficult to exclude with a history of
metastatic small cell lung cancer. If follow-up imaging is performed, without and with intravenous contrast would be recommended.
CT chest/abdomen/pelvis without contrast 03/23/2025:
Moderate right pleural effusion. Complete collapse/atelectasis of the right lung, likely secondary to mucous plugging with opacification of the right lung bronchi.
New patchy airspace opacity in the posteromedial left lower lobe concerning for pneumonia/aspiration.
Subjective Dataa
Subjective Data
Date of Service:
Date of Service: March 24, 2025
Chief Complaint: Stapler Hand Follow Up
Subjective:
Patient seen and evaluated this morning. Remains intubated on AC/CMV at 22/450/5/40% with PIP 22 cmH2O, VTe 403 cc and breathing at 22 breaths/min. Patient's , Elisa, and daughter, Alida, present at bedside and all questions were answered.
Patient remains unresponsive and has twitching behavior when he is interacted with.
Review of Systems
General: Unobtainable - Pat Unresp
Objective Data
Data Reviewed
Vital Signs / I&O / Oxygen:
Vital Signs
Temp Pulse Resp BP Pulse Ox
98.6 F 91 24 93/66 98
03/24/25 11:00 03/24/25 11:27 03/24/25 11:27 03/23/25 22:45 03/24/25 11:35
Intake and Output
03/23/25 03/24/25 03/25/25
06:59 06:59 06:59
Intake Total 1250 / 1250 1982.3 / 2093.0 432.8 / 432.8
Output Total 850 / 850 690 / 730 80 / 80
Balance 400 / 400 1292.3 / 1363.0 352.8 / 352.8
SaO2 [A/C] 98
SaO2 98
Nasal Cannula flow liters per 60
minute
Physical Exam
General: Respiratory Distress (negative), T Max (104 �F yesterday afternoon), Chills (negative) and Sweats (negative)
HEENT: Normocephalic and Anicteric
Cardiovascular: Irregular Rhythm (Irregularly irregular)
Respiratory: Wheeze (negative), Crackles (Bilaterally), Rhonchi (Bilateral) and ET Tube (Mechanical breath sounds heard bilaterally)
GI: Soft, Distended (Abdominal obesity), Non Tender and Normal Bowel Sounds
Neurology: Tremors (Occasional in the right side of body when provoked), Unresponsive and Other (Right pupil 3 mm, left pupil 2 mm and sluggish; corneal reflexes bilaterally intact; intact gag/cough reflex; twitches on his right side of his
face/right arm and both legs when interacted with/physically moved)
Skin: Warm, Dry, Cyanosis (negative) and Jaundice (negative)
Labs/Micro/Reports
Lab Data
03/24/25 03:33
03/24/25 03:33
Laboratory Results
03/24/25
03:33
PT 38.4 H
INR 3.97
APTT 48.1 H
pH 7.45
pCO2 33 L
pO2 119 H
HCO3 22.9
O2 Delivery Level
Microbiology
03/22/25 11:43 Blood/Venous Blood Culture - Preliminary
No Growth in 48 hours- Final report to follow
03/23/25 11:24 Endotracheal Respiratory Culture - Preliminary
Usual Respiratory Liudmila
03/23/25 11:24 Endotracheal Gram Stain - Preliminary
03/23/25 22:23 Nose Nasal Screen MRSA (PCR) - Final
MRSA not detected - performed by PCR methodology.
03/23/25 22:23 Urine Legionella Urinary Antigen - Final
Negative for Legionella pneumophila Serogroup 1 antigen.
A negative result does not rule out the possiblity of
Legionella infection due to other serogroups or species of
Legionella. Clinical correlation is recommended.
03/23/25 22:23 Urine Streptococcus pneumoniae Antigen (M - Final
Positive for Strep pneumo Ag
03/22/25 13:23 Blood/Venous Blood Culture - Preliminary
No Growth in 24 hours- Final report to follow
03/22/25 14:28 Urine Urine Culture - Final
NO GROWTH
03/23/25 04:35 Nasal Swab Influenza Types A & B (TOMA) - Final
Negative for Influenza A & B, NAAT
Negative results must be combined with clinical observations
and patient history.
Nucleic Acid Amplification test (NAAT)performed on the
[employer] platform.
--- NOTE | 2025-03-24 08:43 | W.PN.HOSP.TC ---
Today's Communication/Plan
-
see a/p
Assessment / Plan
Assessment / Plan
Physical Exam
General: unresponsive
HEENT: Normocephalic, Atraumatic, Moist Mucous Membranes, intubated
Respiratory: Clear to Auscultation
Cardiac: Regular Rhythm and S1/S2; Negative Murmur, Rub or Gallop
GI: Soft, Nontender, Nondistended and Normal Bowel Sounds; Negative Organomegaly
Musculoskeletal: No Clubbing, No Cyanosis and No Edema
Skin: Negative Rash
Neuro: obtunded, unresponsive, noncommunicative, not on sedation
Impression:
Presentation with altered mental status.
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
Acute hypoxic respiratory failure.
Aspiration pneumonia, severe with right lung collapse.
Sepsis secondary to aspiration pneumonia
Acute kidney injury
Conditions prior to admission:
Chronic atrial fibrillation
Anticoagulation with Xarelto
Essential hypertension.
Lung adenocarcinoma s/p lobectomy on Xalkori
History of malignant pleural effusion right
Plan:
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
CT scan of the head with no acute abnormalities per
MRI of the brain findings consistent with multiple acute infarcts, largest in the left cerebellum. Other sites including bilateral occipital lobes, polly, left thalamus.
CTA Occlusions of the distal V4 segments of the bilateral vertebral arteries from just beyond the branches of the bilateral posterior inferior cerebellar arteries to the origin of the basilar artery. Alternatively, it may just be the distal left V4
segment that is occluded, with the right V4 segment being hypoplastic with drainage into the right PICA and an absent distal course, which is an anatomic variant.
Large right pleural effusion.
Echocardiogram with preserved biventricular function and no evidence of cardioembolic source.
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
Repeat CT of the head scan on 03/22 with concern for new small focus of decreased density within the left thalamus which likely subacute infarct. These findings also new when compared to MRI of the brain in March 18, although no comment in comparison
with CT scan from 03/19.
Serial ABG with no evidence of respiratory acidosis/CO2 retention
Progressively deteriorating neurologic status with developed aspiration syndrome.
Follow-up CT scan of the head 03/23 with multiple bilateral acute/subacute embolic infarcts. No evidence for hemorrhagic transformation
Anticoagulation with Xarelto cont, subsequently held with Elevated INR>3 corrected with Vit K for possible thoracentesis, INR remains therapeutic 2-3
Neurological status has remain poor following intubation as below. Nonresponsive, noncommunicative despite off sedation.
Acute hypoxic respiratory failure secondary to aspiration pneumonia
Aspiration pneumonia with bilateral infiltrates.
Follow-up chest x-ray and CT scan confirming complete right lung opacification and smaller left-sided infiltrate
Acute hypoxic respiratory failure secondary to above
VDRF.
� Intubated on 03/23 secondary to respiratory distress and hypoxia
Sepsis secondary to aspiration pneumonia
Septic shock
Transferred to ICU.
Continue AC vent support as per ICU
Antibiotics initiated on 03/22 Unasyn covering aspiration pathogens.
IV fluid bolus
Initiated on phenylephrine titrate to MAP 55-60
CXR appreciated consolidation right lower and middle lobes suggestive pna. severe left lower lobe pna and large right pleural effusion was also noted.
Strep pneumo urinary antigen positive
Acute kidney injury secondary to hypotension and hypoxia.
Maintain White catheter as below open
Continue vasopressors avoiding hypotension.
Follow creatinine and urine output
IVF LR rate increased to 100 cc/h
Acute urine retention baseline White catheter placed on 03/20.
Urine cultures NGTD
Chronic atrial fibrillation
Rapid ventricular response secondary to hypoxia
Hold metoprolol
cont amiodarone
Essential hypertension.
Hold metoprolol, Zestril secondary to hypotension
Dyslipidemia
cont statin
Lung adenocarcinoma.
History of lymph node dissection.
Currently on Xalkori. Held secondary to acute infection
History of right malignant pleural effusion.
dvt ppx therapeutic INR, Holding Xarelto
Full Code switched to limited DNR (no CPR) per craft superintendent discussion with family.
Goals of Care Discussion 03/25/25: Patient poor prognosis, poor neurologic recovery, as per family discussion with craft superintendent and neurology, ultimately family has decided to pursue comfort care with plan for withdrawal of care terminal extubation
tomorrow 03/26/25
Total Critical Care Time__50___ minutes. I was immediately available to the patient and staff. I personally examined, reviewed labs, diagnostic images/reports, interpretations, treatment plans, discussed patient care with other providers and
family or caregivers (if patient is unable to make decisions), entered orders as appropriate and documented the medical record.
Anticipated Discharge: 24 - 48 hours
Subjective/Interval History
-
Date of Service: March 24, 2025
unresponsive, noncommunicative, despite off sedation. intubated on pressor
Objective Data
-
Labs:
Laboratory Results
03/24/25
03:33
WBC 21.3 H
Hgb 15.4
Hct 44.8
Plt Count 175
PT 38.4 H
INR 3.97
APTT 48.1 H
HCO3 22.9
Sodium 140
Potassium 3.7
Chloride 109 H
Carbon Dioxide 21 L
BUN 48 H
Creatinine 2.3 H
Glucose 176 H
Calcium 8.2 L
Total Bilirubin 1.0
AST 29
ALT 27
Alkaline Phosphatase 88
Vital Signs:
Vital Signs
Temp Pulse Resp BP Pulse Ox
97.6 F 93 25 93/66 99
03/24/25 07:00 03/24/25 07:45 03/24/25 07:45 03/23/25 22:45 03/24/25 07:45
I&O
03/23/25 03/24/25 03/25/25
06:59 06:59 06:59
Intake Total 1250 / 1250 1982.3 / 2093.0 231.4 / 231.4
Output Total 850 / 850 690 / 730 80 / 80
Balance 400 / 400 1292.3 / 1363.0 151.4 / 151.4
--- NOTE | 2025-03-24 09:31 | W.PN.UPDATE ---
Update Note
Progress Note Update
discussed with daughter Alida (awilda) and Renetta at bedside
-IR consulted for thoracentesis R lung pleural effusion
-Tube feed ordered per correspondence review clerk recommendations
-LR increased from 60 cc/h to 100 cc/h d/t worsening COLIN
-Held Xarelto with INR 3.97
[2025-03-24] MEDS: AQUAMEPHYTON 50.5 MG IV (10:51)
[2025-03-24] MEDS: CORDARONE 518 MG IV (10:52)
--- NOTE | 2025-03-24 11:13 | W.PN.CARDCBS ---
Today's Communication / Plan
-
Overall poor prognosis
Awaiting further input by neurology current mental status along with possible adjustment of anticoagulation given embolic episodes
Remains not a candidate for DELANO
Antibiotics for infection with severe pneumonia
Impression / Plan
-
Primary Family Dentist: Dr. Roman
Assessment:
VDRF, intubated 03/23/2025
Severe right sided pneumonia
Acute diastolic CHF
Presentation with confusion, change in mental status
Multiple posterior circulation distribution infarcts
Mod R pleural effusion, pending IR eval
Fever
Recent covid illness
Stage IV adenocarcinoma of right lung status post right lower lobectomy 04/2022, considered to be in remission on chronic Xalkori, followed by [facility]
History of malignant right pleural effusion status post thoracentesis 05/2022
Paroxysmal atrial fibrillation
Chronic Xarelto therapy
Hypertension
Hyperlipidemia
ECHO 03/19/25: EF 65 to 70%, trace MR, mild aortic sclerosis, trace AR, dilated RV with preserved function, PAP 33 mmHg, pericardial fat pad
Plan:
Cardiology initially consulted for DELANO but not felt to be a candidate given poor mental status
He has new possible embolic CVA
Could be considered Xarelto failure and could consider change to Eliquis if recovers
AF rate improving with IV amiodarone. Also requiring phenylephrine for blood pressure support
Unable to give IV Cardizem or IV beta-paddy given hypotension
May need IV heparin if remains n.p.o vs continuing Xarelto via ETT; appreciate input by neurology regarding possible switch
Overall prognosis remains poor especially given metastatic lung cancer
Discussed with nursing
Discussed with patient and family at bedside as well as nursing
Critical care time 36 minutes
Progress Note - Family Dentist
Subjective
Date of Service: March 24, 2025
Patient seen and examined. Intubated sedated on mechanical ventilation. Patient febrile overnight. No acute events overnight.
Objective
Labs:
03/24/25 03:33
03/24/25 03:33
Labs
Hgb 15.4 g/dL (13.0-18.0) 03/24/25 03:33
Hct 44.8 % (39.0-52.0) 03/24/25 03:33
Plt Count 175 10^3/uL (130-400) 03/24/25 03:33
PT 38.4 Sec (11.4-14.6) H 03/24/25 03:33
INR 3.97 03/24/25 03:33
APTT 48.1 Sec (23.4-35.0) H 03/24/25 03:33
Sodium 140 mmol/L (135-145) 03/24/25 03:33
Potassium 3.7 mmol/L (3.5-5.1) 03/24/25 03:33
BUN 48 mg/dl (9-20) H 03/24/25 03:33
Creatinine 2.3 mg/dL (0.7-1.3) H 03/24/25 03:33
Glucose 176 mg/dl (70-99) H 03/24/25 03:33
Troponins
03/22/25
09:40
Troponin I < 0.012
Vital Signs and I&O:
Vital Signs
Temp Pulse Resp BP Pulse Ox
97.6 F 92 24 93/66 98
03/24/25 07:00 03/24/25 10:30 03/24/25 10:30 03/23/25 22:45 03/24/25 10:30
Vital Signs
Temp Pulse Resp BP Pulse Ox
97.6 F 92 24 93/66 98
03/24/25 07:00 03/24/25 10:30 03/24/25 10:30 03/23/25 22:45 03/24/25 10:30
Intake & Output
03/22/25 03/23/25 03/24/25 06/15/25
06:59 06:59 06:59 06:59
Intake Total 1250 / 1250 1982.3 / 2093.0 432.8 / 432.8
Output Total 1190 / 1190 850 / 850 690 / 730 80 / 80
Balance -1190 / -1190 400 / 400 1292.3 / 1363.0 352.8 / 352.8
Physical Exam
Physical Exam
General: Intubated and unresponsive
Neck: Supple, no JVD, HJR, carotids +2 B/L, no bruits bilaterally.
Heart: Non displaced PMI, irregular, no murmurs, No S3, S4, no rubs.
Lungs: Scattered rhonchi throughout
Extremities: No clubbing, cyanosis or edema bilaterally.
Neuro: Intubated and unresponsive
[2025-03-24 13:40] LABS: INR 2.89; PT 30.1 Sec (11.4-14.6)
--- NOTE | 2025-03-24 14:00 | PTCARENOTE ---
Family in to visit, updated. 1050-5mg IV Vit K given. Repeat labs at 1300-INR 2.89. Assessment unchanged.
--- NOTE | 2025-03-24 14:00 | W.PN.NEURO.1 ---
Today's Communication / Plan
-
Recheck CT of head to determine if the patient has had a hemorrhagic conversion from prior ischemic lesions
Continue to treat underlying metabolic disturbances and infectious causes
Would attempt to continue anticoagulation unless demonstration of hemorrhage by head CT
Neuro Assessment/Plan
Assessment
Brain MRI numerous emboli in the posterior circulation distribution most notably left cerebellum, left polly, right thalamus, and other areas
CTA bilateral V4 occlusion, basilar artery supplied retrograde.
Repeated CT of head showed no significant change from yesterday to today despite stroke alert
Had cognitive baseline debility decompensated from the stroke
Further decline in consciousness in the last 24 hours most likely attributable to combination of diffuse strokes, significant and severe infection requiring intubation, and stage IV cancer
Plan
Recheck CT of head to determine if the patient has had a hemorrhagic conversion from prior ischemic lesions
Continue to treat underlying metabolic disturbances and infectious causes
Would attempt to continue anticoagulation unless demonstration of hemorrhage by head CT
Will follow peripherally
Subjective/Objective
Subjective Data
Date of Service: March 24, 2025
Patient unable to provide his own medical history
Objective Data
Vital Signs
Temp Pulse Resp BP Pulse Ox
37.0 C 93 13 93/66 98
03/24/25 11:00 03/24/25 11:30 03/24/25 11:30 03/23/25 22:45 03/24/25 11:35
Lab Results
03/24/25 03:33
03/24/25 03:33
PT 30.1 Sec (11.4-14.6) H 03/24/25 13:16
INR 2.89 03/24/25 13:16
APTT 48.1 Sec (23.4-35.0) H 03/24/25 03:33
Sodium 140 mmol/L (135-145) 03/24/25 03:33
Potassium 3.7 mmol/L (3.5-5.1) 03/24/25 03:33
BUN 48 mg/dl (9-20) H 03/24/25 03:33
Glucose 176 mg/dl (70-99) H 03/24/25 03:33
Calcium 8.2 mg/dl (8.4-10.2) L 03/24/25 03:33
Phosphorus 3.2 mg/dl (2.5-4.5) 03/24/25 03:33
Nse-X-Lbqvuygemdn Pept 477 pg/ml 03/24/25 03:33
LDL Cholesterol, Calc 28 mg/dl 03/19/25 05:41
Vitamin B12 648 pg/ml (239-931) 03/19/25 05:41
Ur Buprenorphine Negative (Negative) 03/18/25 00:15
Patient Allergies
codeine Allergy (Verified 03/22/25 21:31)
nervous/anxious
Review of Systems
-
Unable to obtain full review of systems at this time due to: Lethargy
History Source: Patient
All other systems: Reviewed and negative
Physical Exam
-
General: No Apparent Distress, Intubated, Obese and Appears Stated Age
Eyes: Round OU, Arab Conjunctivae and No Ptosis
HEENT: Anicteric and Moist Mucous Membranes
Neck: Full Range of Motion
Respiratory: No Dyspnea
Cardiac: No JVD
GI: Non-distended
Extremities: No Clubbing, No Cyanosis and No Edema
Psych: Unable to Assess
Extended Neurological Exam
Mood & Affect: Unable to Assess
Attention Span & Concentration: Unable to Perform 2 Step Request and Other (Unable to perform single step requests)
Memory: Unable to Assess
Tremor: Hand Tremor Absent and Head Tremor Absent
Involuntary Movement: Other (Spontaneous movement of the left lower jaw intermittently and irregularly)
Speech: Mute
Cranial Nerve II: Left Eye: Pupillary Size Unremarkable and Unable to Assess Visual Fuentes
Cranial Nerve II: Right Eye: Pupillary Size Unremarkable and Unable to Assess Visual Fuentes
Cranial Nerves III, IV, : Extraocular Movement: Absent Doll's Eyes
Cranial Nerve VII: Facial Symmetry: Normal Facial Symmetry
Cranial Nerve VIII: Hearing: Unable to Assess
Cranial Nerves IX, X: Palate Movement: Unable to Assess
Cranial Nerve XI: Shoulder Shrug: Unable to Assess
Cranial Nerve XII: Tongue Protusion: Unable to Assess
Muscle Strength, Overall: Spontaneously Moves (Right upper and right lower extremity after physical stimulation)
Muscle Bulk & Tone: Bulk Unremarkable and Tone Unremarkable
Pronator Drift: Unable to Assess
Cold Sensation: Unable to Assess
Vibration Sensation: Unable to Assess
Coordination: Unable to Assess
Gait & Station: Unable to Assess
Data Reviewed
-
CT Head: Ordered
Labs: Report Reviewed
Reviewed with: Physician and Nurse
Old Records: Summarized
Past History
Past History
ED Past Medical History: Arrthythmia, CVA, HTN, Hypercholesterolemia and NIDDM
ED Past Surgical History: Appendectomy, Orthopedic, Tonsilectomy and Other (Lung resection)
Social History
Tobacco: Non-smoker
Alcohol: None
Drug: None
Personal:
Living: with family
Family History
Family History: Other (reviewed and non-contributory)
Medications
-
Medications:
Generic Name Dose Route Start Last Admin
Trade Name Freq PRN Reason Stop Dose Admin
Acetaminophen 650 mg 03/22/25 11:39 03/23/25 17:34
Acetaminophen 650 Mg Rectal Suppository RECTAL 04/19/25 11:38 650 mg
Q6HPRN PRN Administration
temp >100.4F
Albuterol Sulfate 1.25 mg 03/23/25 12:00 03/24/25 11:25
Albuterol Nebs 1.25 Mg/3 Ml Ampul INH 1.25 mg
R QID ЕЛЕНА Administration
Protocol
Atorvastatin Calcium 10 mg 03/23/25 15:50 03/23/25 17:47
Atorvastatin (Lipitor) 10 Mg Tablet TUBE 04/16/25 17:59 10 mg
QPM ЕЛЕНА Administration
Bisacodyl 10 mg 03/23/25 00:07
Bisacodyl 10 Mg Rectal Suppository RECTAL 04/20/25 00:06
DAILYPRN PRN
constipation
Hydrocortisone Sodium Succinate 50 mg 03/23/25 18:00 03/24/25 11:35
Hydrocortisone Sodium Succinate 100 Mg/2 Ml Vial IV 04/20/25 17:59 50 mg
Q6 ЕЛЕНА Administration
Ampicillin Sodium/Sulbactam 120 mls @ 240 mls/hr 03/22/25 13:00 03/24/25 11:36
Sodium 3 gm/ Sodium Chloride IV 120 mls
Q6 ЕЛЕНА Administration
Amiodarone HCl 900 mg/ 518 mls @ 0 mls/hr 03/23/25 09:30 03/24/25 10:52
Dextrose/Water IV 518 mls
PER PROTOCOL ЕЛЕНА Administration
Protocol
Per Protocol
Phenylephrine HCl 50 mg in 250 mls @ 0 mls/hr 03/23/25 09:30 03/24/25 04:09
Rupert-Synephrine IV 250 mls
PER PROTOCOL ЕЛЕНА Administration
Protocol
Per Protocol
Ipratropium [facility] 0.5 mg 03/23/25 12:00 03/24/25 11:25
Ipratropium Nebs 0.5 Mg/2.5 Ml Ampul INH 0.5 mg
R QID ЕЛЕНА Administration
Protocol
Ondansetron HCl 4 mg 03/18/25 07:33
Ondansetron 4 Mg/2 Ml Vial IV 04/15/25 07:32
Q6HPRN PRN
nausea and vomiting
Rivaroxaban 20 mg 03/23/25 15:51 03/23/25 17:46
Rivaroxaban 20 Mg Tablet TUBE 04/15/25 17:29 20 mg
On Hold: 03/24/25 09:03 1730 ЕЛЕНА Administration
Sodium Chloride 0 flush 03/18/25 06:00
Sodium Chloride 0.9% (Flush) Syringe IV 04/15/25 05:59
PER PROTOCOL ЕЛЕНА
Sodium Chloride 1 vial 03/23/25 11:17
Sodium Chloride 3% For Inhalation 4 Ml Vial INH
R Q4HPRN PRN
mucous plugging
Sodium Chloride 1 vial 03/23/25 12:00 03/24/25 11:25
Sodium Chloride 3% For Inhalation 4 Ml Vial INH 03/28/25 08:01 1 vial
R QID ЕЛЕНА Administration
--- NOTE | 2025-03-24 14:02 | PTCARENOTE ---
Pt felt the need to void, bedpan unsuccessful. Bladder scanned for 337ml. Spoke with MD about pt's inability to void and last straight cathed at 2100 last pm. Per MD pt straight cathed for 300ml michael urine without difficulty, will need jacobs placed
if unable to void again later today. Relayed info to pt, pt nodded head yes in understanding. Family at bedside. Pt assessment unchanged.
--- NOTE | 2025-03-24 15:05 | PTCARENOTE ---
Pt down for CT scan of head, back in room at this time. No changes in assessment.
--- NOTE | 2025-03-24 17:23 | W.PN.UPDATE ---
Update Note
Progress Note Update
Discussed the patient's clinical status with the , Elisa, and the daughter, Alida. Discussed that he is continuing to be unresponsive despite not being on sedation. CT head repeated earlier today showing evolving nonhemorrhagic infarcts in the
left cerebellum, left polly, bilateral thalami and bilateral occipital lobes. They would like to speak neurology regarding prognosis and to answer any additional questions regarding his stroke.
I did discuss code status with the family and we agreed that if his heart were to stop that they would not want CPR to be done for him, and they would rather him be comfortable and without pain. They are tentatively planning to withdraw care
tomorrow with terminal extubation. Code status order changed in [facility]. Primary hospitalist made aware.
[2025-03-24] MEDS: LIPITOR 10 MG TUBE (17:35)
--- NOTE | 2025-03-24 20:00 | PTCARENOTE ---
assumed care, pt intubated, +corneal, gag, and cough, WD to pain, during mouth care and suctioning pt was able to reach both arms up to chest, occasional twitch of the lower extremities, no purposeful movement otherwise, R pupil 3 and L 2 both
sluggish, NIH 33, Afib on the monitor, doppler pulses, B/L scds, +1 GA and +2 to upper and lower extremities, L rad A-line, ETT #8 26 @ lip, AC 22/450/5/40%, SpO2 99, rhonchi, and coarse throughout, lrg thick babin secretions orally and from ETT, OGT
75 @ lip, BSx4 hyperactive, liq BM from RT, White michael output, gtts per worklist, otherwise refer to documentation
[2025-03-24] MEDS: PACERONE 400 MG TUBE (23:11)
--- NOTE | 2025-03-25 00:26 | PTCARENOTE ---
systems reviewed, IV anjelica dc'd and given PO, CHG bath, family visited and updated, they requested if possible for pts dog to come visit with potential WD tomorrow, truck driver supervisor notified and I told family to call before coming tomorrow for answer, PT
moved R arm and pulled R hand IV, gtts per worklist, otherwise refer to documentation.
[2025-03-25] MEDS: SOLU-CORTEF 50 MG IV ×2 (01:57→05:09)
[2025-03-25 02:03] VITALS: BMI 35.9
[2025-03-25] MEDS: DILAUDID 0.25 MG IV (03:28)
[2025-03-25 04:00] LABS: Hematocrit 42.6 % (39.0-52.0); Hemoglobin 14.6 g/dL (13.0-18.0); Mean Corp Hgb Conc. 34.3 g/dL (33.0-37.0); Mean Corpuscular Hgb 29.9 pg (27.0-31.0); Mean Corpuscular Volume 87.1 fL (80.0-94.0); Mean Platelet Volume 11.4 fL (7.4-10.4); Platelet Count 193 10^3/uL (130-400); Red Blood Cell Count 4.89 10^6/uL (4.70-6.10); Red Cell Dist. Width 13.6 % (11.5-14.5); White Blood Cell Count 19.8 10^3/uL (4.8-10.8)
[2025-03-25 04:13] LABS: INR 1.82; PT 21.3 Sec (11.4-14.6)
[2025-03-25] MEDS: SUBLIMAZE 25 MCG IV (04:29)
[2025-03-25 04:31] LABS: Blood Urea Nitrogen 55 mg/dl (9-20); Calcium 8.5 mg/dl (8.4-10.2); Carbon Dioxide 26 mmol/L (22-30); Chloride 110 mmol/L (98-107); Estimated Creatinine Clearance 62 ml/min; Glucose 122 mg/dl (70-99); Magnesium 2.7 mg/dl (1.6-2.3); Potassium 3.9 mmol/L (3.5-5.1); Sodium 141 mmol/L (135-145); eGFR 46.35
--- NOTE | 2025-03-25 04:39 | PTCARENOTE ---
systems reviewed, labs sent, pt increasingly restless, notified MACROECONOMICS PROFESSOR Dilaudid given per DEC, pt remained restless and while the RT was suctioning pt thrashing in bed, lifting arms and right leg, biting down on vent, SpO2 dropped in the low 80's,
dyssynchronous on the vent, Mandarin Speaking Nanny notified and fent given per DEC, restraints ordered and applied, not responding to voice only to pain, otherwise refer to documentation.
[2025-03-25] MEDS: UNASYN IV ×2 (05:07→12:41)
[2025-03-25] MEDS: PACERONE 400 MG TUBE (07:13)
[2025-03-25] MEDS: ATROVENT NEBULES 0.5 MG INH ×2 (07:54→11:14)
[2025-03-25] MEDS: SODIUM CHLORIDE 3% FOR INHALATION 1 VIAL INH ×2 (07:54→11:14)
[2025-03-25] MEDS: VENTOLIN NEBULES 1.25 MG INH ×2 (07:54→11:14)
[2025-03-25 08:00] VITALS: BP 143/48
--- NOTE | 2025-03-25 08:17 | W.PN.INTV ---
Today's Communication / Plan
Recommendations
Terminal extubation with transition to comfort care measures
Consult hospice
Stop all medications unless tailored for comfort
Stop blood draws
Stop frequent vital signs
DNR/DNI
Emotional support was provided to the family (, Elisa, and daughter, Alida)
Neurology also came to the bedside today and answered all of the family's questions
Given that we are transitioning to comfort care with terminal extubation, Adjuster And Inspector/Pulmonary service will now sign off. Please call back with any questions or concerns and thank you for allowing us to be involved in the care of this patient.
Assessment
-
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
presents with change in mental status. The reports that the patient has not been acting himself. 911 called and when EMS arrived the patient was mottled, clammy and vomited. Blood sugar was 114. Over the last 3-4 days the patient's been
having memory lapses with increased confusion. Patient was admitted to the hospitalist service for altered mental status with neurology consulted. CT head on 03/17/2025 showed no acute intracranial abnormality. Brain MRI on 03/18/2025 showed multiple
acute infarcts, largest in the left cerebellum as well as other acute infarcts in bilateral occipital lobes, polly and right thalamus. He developed a burst of A-fib with RVR with ventricular rate in the 150s on the afternoon of 03/22, cardiology made
aware. In the professor of early childhood education hours of 03/23, patient developed significant shortness of breath and increased oxygen requirements. He was placed onto 8 L/min via mid flow nasal cannula. He then developed copious amounts of mucus which was suctioned
from his throat/mouth and then he was transition to BiPAP with heart rate jumping up to as high as 170�190s. Patient was transferred to the IMU for high flow nasal cannula + NRB. He also had a fever on the morning of 03/23 to 101.9 �F. He then
became unresponsive and was transferred to the ICU where he was subsequently intubated by anesthesia. Adjuster And Inspector services consulted for additional management/recommendations.
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
Impression:
#Right lung whiteout due to mucous plugging +/- aspiration - -> spiked fever on 03/22 and this is when he became more confused/encephalopathic which culminated on the morning of 03/23
#Bilateral CAP due to strep pneumonia/aspiration pneumonia with right-sided bronchial mucous plugging
#Acute respiratory failure with hypoxia due to above
#COLIN
#Leukocytosis (reactive as well as due to sepsis from right-sided aspiration pneumonia)
#Ischemic CVA involving right thalamus, left cerebellum, left anterior polly as well as occipital lobes bilaterally; abnormal 8 mm FLAIR hyperintense signal in the cortex of the paramedian right parietal�occipital junction which could be cytotoxic
edema versus a small metastatic focus
#Fevers likely due to ischemic infarcts
#Hx of RLL adenocarcinoma (Dx 03/2022) s/p right lower lobectomy (performed at [facility])
#Obesity
#Paroxysmal A-fib on Xarelto with elevated INR, now with A-fib with RVR
#RV dilation with mild pulmonary hypertension
Plan:
- Patient was brought to the ICU and emergently intubated by anesthesia
- Family discussed goals of care this morning and given that the patient has a change in his physical exam, I brought neurology (Dr. Infante) into the room to speak to the family and unfortunately his exam is still very concerning with low likelihood
that he will continue to improve, and if left intubated he would be heading towards tracheostomy + feeding tube
- The patient's and other family members agreed that the patient would not want to be living in a group home with a tracheostomy + feeding tube and the family has agreed to withdraw care and transition to comfort care measures
- Stop all medications unless tailored for comfort
- Start hydromorphone with drip if needed (avoid morphine given his COLIN); start Ativan to be given if needed for anxiety
- Stop blood draws
- Stop vital signs
- Remove A-line
- Give dose of Dilaudid and Ativan prior to terminal extubation
- I offered lumber mover services prior to terminal extubation but the family declined
- Emotional support provided to the family and all questions answered
- The patient continues to breathe about the ventilator rate and his brainstem is intact hence I believe that he will take hours to days to pass away --> hence I will consult hospice
- Would keep patient in the ICU today in case he passes away over the next several hours, however if he is still with us tomorrow then would downgrade to the hospice floor at that time versus another private room on the floor
Code status: DNR/DNI
Given that we are transitioning to comfort care with terminal extubation, Adjuster And Inspector/Pulmonary service will now sign off. Please call back with any questions or concerns and thank you for allowing us to be involved in the care of this patient.
Data:
CXR 03/23/2025: Increased, now near complete opacification of the right hemithorax secondary to a combination of pleural fluid and atelectasis. The left lung is clear. Mild shift of the mediastinal structures to the right. Chronic degenerative
changes of the spine.
Transthoracic echocardiogram 03/19/2025:
1. Normal left ventricular size and function, ejection fraction 65-70%
2. Mildly thickened mitral leaflets with trace mitral regurgitation and normal
left atrium
3. Mild aortic sclerosis with trace aortic regurgitation
4. Dilated right ventricle with preserved systolic function, pulmonary artery
systolic pressure is 33 mmHg
5. Pericardial fat pad
6. The ascending aorta is 3.7 cm
In June 2024, the rhythm was atrial fibrillation. The ejection fraction
was 55-60%. The right ventricle was normal in size. The left atrium was
mildly dilated. The pulmonary artery systolic pressure was 36 mmHg.
Brain MRI w/o blas 03/18/2025:
Multiple acute infarcts, largest in the left cerebellum. Other acute infarcts in the bilateral occipital lobes, polly, and RIGHT thalamus.
0.8 cm FLAIR hyperintense signal in the cortex of the paramedian right parieto-occipital junction. This does not clearly correspond to CYTOTOXIC edema from an acute infarct. A small metastatic focus would be difficult to exclude with a history of
metastatic small cell lung cancer. If follow-up imaging is performed, without and with intravenous contrast would be recommended.
CT chest/abdomen/pelvis without contrast 03/23/2025:
Moderate right pleural effusion. Complete collapse/atelectasis of the right lung, likely secondary to mucous plugging with opacification of the right lung bronchi.
New patchy airspace opacity in the posteromedial left lower lobe concerning for pneumonia/aspiration.
Total time spent today was 42 minutes for this encounter. Time includes reviewing laboratory test/imaging results, reviewing pertinent medical records, obtaining and reviewing medical history, performing an appropriate exam, ordering medications,
tests and procedures. Time also includes documentation of this encounter, coordinating patient care and communicating with other healthcare professionals. Total time does not include separately billed tests performed on this date of service.
Subjective Dataa
Subjective Data
Date of Service:
Date of Service: March 25, 2025
Chief Complaint: Adjuster And Inspector Follow Up
Subjective:
Patient seen and evaluated this morning. Multiple family members at bedside. Patient is following very simple commands but still not awake enough to be extubated. Family is preparing for terminal extubation this morning.
Review of Systems
General: Other (Unobtainable due to patient's clinical status/intubated)
Objective Data
Data Reviewed
Vital Signs / I&O / Oxygen:
Vital Signs
Temp Pulse Resp BP Pulse Ox
98.8 F 101 22 112/56 96
03/25/25 07:00 03/25/25 09:00 03/25/25 09:00 03/25/25 07:13 03/25/25 09:17
Intake and Output
03/24/25 03/25/25 03/26/25
06:59 06:59 06:59
Intake Total 1982.3 / 2091.0 1723.9 / 1741.9 136 / 136
Output Total 690 / 730 785 / 835 150 / 150
Balance 1292.3 / 1361.0 938.9 / 906.9 -14 / -14
SaO2 [A/C] 96
SaO2 96
Nasal Cannula flow liters per 60
minute
Physical Exam
General: Respiratory Distress (negative), T Max (104 �F yesterday afternoon), Chills (negative) and Sweats (negative)
HEENT: Normocephalic and Anicteric
Cardiovascular: Irregular Rhythm (Irregularly irregular)
Respiratory: Wheeze (negative), Crackles (Bilaterally), Rhonchi (Bilateral) and ET Tube (Mechanical breath sounds heard bilaterally)
GI: Soft, Distended (Abdominal obesity), Non Tender and Normal Bowel Sounds
Neurology: Tremors (Occasional in the right side of body when provoked), Other (Right pupil 3 mm, left pupil 2 mm and sluggish; corneal reflexes bilaterally intact; intact gag/cough reflex; twitches on his right side of his face/right arm and both
legs when interacted with/physically moved) and Other (Intermittently following simple commands but not opening eyes fully)
Skin: Warm, Dry, Cyanosis (negative) and Jaundice (negative)
Labs/Micro/Reports
Lab Data
03/25/25 03:33
03/25/25 03:33
Laboratory Results
03/24/25 03/25/25
13:16 03:33
PT 30.1 H 21.3 H
INR 2.89 1.82
Microbiology
03/22/25 13:23 Blood/Venous Blood Culture - Preliminary
No Growth in 48 hours- Final report to follow
03/22/25 11:43 Blood/Venous Blood Culture - Preliminary
No Growth in 48 hours- Final report to follow
03/23/25 11:24 Endotracheal Respiratory Culture - Preliminary
Usual Respiratory Liudmila
03/23/25 11:24 Endotracheal Gram Stain - Preliminary
03/23/25 22:23 Nose Nasal Screen MRSA (PCR) - Final
MRSA not detected - performed by PCR methodology.
03/23/25 22:23 Urine Legionella Urinary Antigen - Final
Negative for Legionella pneumophila Serogroup 1 antigen.
A negative result does not rule out the possiblity of
Legionella infection due to other serogroups or species of
Legionella. Clinical correlation is recommended.
03/23/25 22:23 Urine Streptococcus pneumoniae Antigen (M - Final
Positive for Strep pneumo Ag
03/22/25 14:28 Urine Urine Culture - Final
NO GROWTH
03/23/25 04:35 Nasal Swab Influenza Types A & B (TOMA) - Final
Negative for Influenza A & B, NAAT
Negative results must be combined with clinical observations
and patient history.
Nucleic Acid Amplification test (NAAT)performed on the
[employer] platform.
--- NOTE | 2025-03-25 08:25 | W.PN.HOSP.TC ---
Today's Communication/Plan
-
continue current care
eventual comfort care Terminal Extubation as per ICU
Assessment / Plan
Assessment / Plan
Physical Exam
General: unresponsive
HEENT: Normocephalic, Atraumatic, Moist Mucous Membranes, intubated
Respiratory: Clear to Auscultation
Cardiac: Regular Rhythm and S1/S2; Negative Murmur, Rub or Gallop
GI: Soft, Nontender, Nondistended and Normal Bowel Sounds; Negative Organomegaly
Musculoskeletal: No Clubbing, No Cyanosis and No Edema
Skin: Negative Rash
Neuro: obtunded, unresponsive, noncommunicative, not on sedation, cornea reflexes intact bilateral
Impression:
Presentation with altered mental status.
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
Acute hypoxic respiratory failure.
Aspiration pneumonia, severe with right lung collapse.
Sepsis secondary to aspiration pneumonia
Acute kidney injury
Conditions prior to admission:
Chronic atrial fibrillation
Anticoagulation with Xarelto
Essential hypertension.
Lung adenocarcinoma s/p lobectomy on Xalkori
History of malignant pleural effusion right
Plan:
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
CT scan of the head with no acute abnormalities per
MRI of the brain findings consistent with multiple acute infarcts, largest in the left cerebellum. Other sites including bilateral occipital lobes, polly, left thalamus.
CTA Occlusions of the distal V4 segments of the bilateral vertebral arteries from just beyond the branches of the bilateral posterior inferior cerebellar arteries to the origin of the basilar artery. Alternatively, it may just be the distal left V4
segment that is occluded, with the right V4 segment being hypoplastic with drainage into the right PICA and an absent distal course, which is an anatomic variant.
Large right pleural effusion.
Echocardiogram with preserved biventricular function and no evidence of cardioembolic source.
Anticoagulation with Xarelto GAS FITTER.
Repeat CT of the head scan on 03/22 with concern for new small focus of decreased density within the left thalamus which likely subacute infarct. These findings also new when compared to MRI of the brain in March 18, although no comment in comparison
with CT scan from 03/19.
Serial ABG with no evidence of respiratory acidosis/CO2 retention
Progressively deteriorating neurologic status with developed aspiration syndrome.
Follow-up CT scan of the head 03/23 with multiple bilateral acute/subacute embolic infarcts. No evidence for hemorrhagic transformation
Anticoagulation with Xarelto cont, subsequently held with Elevated INR>3 corrected with Vit K for possible thoracentesis, INR remains therapeutic 2-3
Neurological status has remain poor following intubation as below. Nonresponsive, noncommunicative despite off sedation.
Acute hypoxic respiratory failure secondary to aspiration pneumonia
Aspiration pneumonia with bilateral infiltrates.
Follow-up chest x-ray and CT scan confirming complete right lung opacification and smaller left-sided infiltrate
Acute hypoxic respiratory failure secondary to above
VDRF.
� Intubated on 03/23 secondary to respiratory distress and hypoxia
Sepsis secondary to aspiration pneumonia
Septic shock
Transferred to ICU.
Continue AC vent support as per ICU
Antibiotics initiated on 03/22 Unasyn covering aspiration pathogens.
IV fluid bolus
Initiated on phenylephrine titrate to MAP 55-60
CXR appreciated consolidation right lower and middle lobes suggestive pna. severe left lower lobe pna and large right pleural effusion was also noted.
Strep pneumo urinary antigen positive
Acute kidney injury secondary to hypotension and hypoxia.
Maintain White catheter as below open
Continue vasopressors avoiding hypotension.
Follow creatinine and urine output
IVF LR rate increased to 100 cc/h
Acute urine retention baseline White catheter placed on 03/20.
Urine cultures NGTD
Chronic atrial fibrillation
Rapid ventricular response secondary to hypoxia
Hold metoprolol
cont amiodarone
Essential hypertension.
Hold metoprolol, Zestril secondary to hypotension
Dyslipidemia
cont statin
Lung adenocarcinoma.
History of lymph node dissection.
Currently on Xalkori. Held secondary to acute infection
History of right malignant pleural effusion.
dvt ppx therapeutic INR, Holding Xarelto
Full Code switched to limited DNR (no CPR) per multimedia production assistant discussion with family.
Goals of Care Discussion 03/25/25: Patient poor prognosis, poor neurologic recovery, as per family discussion with multimedia production assistant and neurology, ultimately family has decided to pursue comfort care with plan for withdrawal of care terminal extubation
tomorrow 03/26/25
I spent a total of 40 minutes with the patient or on the floor. More than 50% of this time involved counseling and coordination of care.
Anticipated Discharge: 24 - 48 hours
Subjective/Interval History
-
Date of Service: March 25, 2025
Objective Data
-
Labs:
Laboratory Results
03/25/25
03:33
WBC 19.8 H
Hgb 14.6
Hct 42.6
Plt Count 193
PT 21.3 H
INR 1.82
Sodium 141
Potassium 3.9
Chloride 110 H
Carbon Dioxide 26
BUN 55 H
Creatinine 1.6 H
Glucose 122 H
Calcium 8.5
Vital Signs:
Vital Signs
Temp Pulse Resp BP Pulse Ox
98.8 F 104 22 112/56 96
03/25/25 07:00 03/25/25 07:59 03/25/25 07:59 03/25/25 07:13 03/25/25 07:59
I&O
03/24/25 03/25/25 03/26/25
06:59 06:59 06:59
Intake Total 1982.3 / 2091.0 1723.9 / 1723.9
Output Total 690 / 730 785 / 785
Balance 1292.3 / 1361.0 938.9 / 938.9
--- NOTE | 2025-03-25 09:18 | PTCARENOTE ---
pt responds to name. moves eyelids when asked to open eyes. moves toes and fingers when asked. nodded head. did not respond to questions. intubated ac mode on vent. afib seen on monitor. og tube placement checked and flushed. draining brown.
jacobs and oral care done. estuardo in place zeroed.
--- NOTE | 2025-03-25 11:36 | CM ---
chart reviewed; case management will monitor and support as needed
--- NOTE | 2025-03-25 11:52 | W.PN.UPDATE ---
Update Note
Progress Note Update
Discussion held with the patient's family in the room, accompanied by Neurology. Decision made to terminally extubate. Orders to be placed into [facility]. Emotional support provided to the family.
[2025-03-25] MEDS: ATIVAN 1 MG IV (12:40)
[2025-03-25] MEDS: DILAUDID 1 MG IV (12:40)
[2025-03-25] MEDS: SOLU-CORTEF IV (12:41)
[2025-03-25] MEDS: NSS (PRESERVATIVE FREE) 0.5 ML IV (12:41)
--- NOTE | 2025-03-25 13:18 | PTCARENOTE ---
pt given pain med and ativan as ordered. removed a line. approx 15 min after pt extubated by resp therapist. pt given full chg bath. og removed restraints removed. rectal trumpet bag changed. pt family brought back in and comfort measures end of
life care reviewed with family
--- NOTE | 2025-03-25 15:11 | CHAP ---
Mr. Minaya was sleeping, non-responsive, with family at his side. Emotional and spiritual support provided, along with a prayer blanket and assurance of our on-going availability.
--- NOTE | 2025-03-25 21:21 | PTCARENOTE ---
Resumed care of pt laying in bed with daughter and at bedside. Pt nonverbal and only minimally responsive to deep pain. Some jerky body movements noted, no purposeful movements noted. Pt bites down when providing oral care. Will not open eyes.
Absent hand grasps. HR in the low 100's in Afib on the monitor. POX range 88-92% on RA. Lungs dec, course/ dec T/O. Loud snoring noted. Round obese abd. White cath in place draining yellow urine. Rectal trumpet in place for loose stools. Weak pedal
pulses present. +2 B/L UE edema present, +1 B/L LE edema present. Right forearm int capped. Pt repositioned. Arms and legs elevated on pillows. Will continue to monitor closely. End of life Protocol in place.
[2025-03-25 22:54] VITALS: BP 132/55
--- NOTE | 2025-03-26 05:36 | PTCARENOTE ---
No changes in assessment noted overnight. POX remains 87%-92% on RA, RR 25, HR 100-110. No need for PRN medications overnight. Pt resting comfortably. Will continue to monitor.
[2025-03-26 08:18] VITALS: BP 143/48
--- NOTE | 2025-03-26 09:30 | PTCARENOTE ---
Rec'd pt at 0800 resting in bed. Pt on Comfort measures. Unresponsive to verbal stimuli. To deep pain will almost decerebrate posture with his arms. Does withdrawal feet to plantar stroke and has occasional 'twitch' like movements of his hands and
feet. With oral care will put his mouth around the swab. Weak gag. No cough noted. Pupils sluggish at 2 mm. Follows no commands. No speech/sound noted. Skin is pale wm and dry. Respirs are overall unlabored on RA with sats of 90-91%. At times
respirs are sl sonorous but then relaxes. BS are sl coarse ant with insp wheeze and post are decreased. Monitor- will remove as pt is comfort measures but underlying is AFib in the 105-115 range. + pulses. Edema as noted , +2 upper arms and +1 Legs.
Abd is obese/ round with hypoactive BS. Rectal trumpet removed as there is no stool coming out. White intact for michael urine. Capped int intact RAC. Pt turned and repositioned. Skin and mouth care given. Pt shaved. Pts and daughter in
currently and updated on plan of care. Pt for eventual transfer to [facility] [id number].
--- NOTE | 2025-03-26 09:57 | HOSPNOTE ---
Met with family and explained hospice and the philosophy. At this time the patient is on comfort will be moved to [facility] and will continue with comfort measures since he appears comfortable at this time has required no medications and appears
actively dying. Patient is completely unresponsive. I will follow daily and support family. If patient meets the criteria we can always change to inpatient hospice.
--- NOTE | 2025-03-26 11:05 | PTCARENOTE ---
Report called to [address] [place] and pt transferred via bed. No changes in assessment. Pror to transfer pt turned and repositioned. Mouth care given. Assessment overall is unchanged. Does move slightly to stimulation but does not open eyes, follows no
commands. Occasional sonorous respirs but mostly relaxed breathing. Sats on RA 91%. Pts and daughter in and support and explanations given- they are aware of the transfer.
[2025-03-26 11:36] VITALS: BP 121/55
--- NOTE | 2025-03-26 11:39 | CM ---
Patient for discharge to for Comfort measures. Hospice following.
[2025-03-26] MEDS: DILAUDID 0.5 MG IV ×5 (11:46→22:59)
--- NOTE | 2025-03-26 12:39 | W.PN.HOSP.TC ---
Today's Communication/Plan
-
Comfort care
Assessment / Plan
Assessment / Plan
Impression:
Presentation with altered mental status.
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
Acute hypoxic respiratory failure.
Aspiration pneumonia, severe with right lung collapse.
Sepsis secondary to aspiration pneumonia
Acute kidney injury
Conditions prior to admission:
Chronic atrial fibrillation
Anticoagulation with Xarelto
Essential hypertension.
Lung adenocarcinoma s/p lobectomy on Xalkori
History of malignant pleural effusion right
Plan:
Continue comfort care
Anticipated Discharge: 24 - 48 hours
Subjective/Interval History
-
Date of Service: March 26, 2025
Objective Data
-
Vital Signs:
Vital Signs
Temp Pulse Resp BP Pulse Ox
98.7 F 118 20 121/55 89
03/26/25 11:36 03/26/25 11:36 03/26/25 11:36 03/26/25 11:36 03/26/25 11:36
I&O
03/25/25 03/26/25 03/27/25
06:59 06:59 06:59
Intake Total 1723.9 / 1741.9 142 / 142
Output Total 785 / 835 825 / 825 150 / 150
Balance 938.9 / 906.9 -683 / -683 -150 / -150
Physical Exam
-
General: Well Developed and No Apparent Distress
HEENT: Normocephalic, Atraumatic and Moist Mucous Membranes
Respiratory: Clear to Auscultation
Cardiac: Regular Rhythm and S1/S2; Negative Murmur, Rub or Gallop
GI: Soft, Nontender, Nondistended and Normal Bowel Sounds; Negative Organomegaly
Rectal: Deferred by Provider
Musculoskeletal: No Clubbing, No Cyanosis and No Edema
Skin: Negative Rash
Neuro: Other (Unresponsive)
--- NOTE | 2025-03-26 16:38 | PTCARENOTE ---
pt daughter from [place] requesting she be secondary contact while in town until 03/27. at bedside approving. phone number [phone]
[2025-03-26 19:50] VITALS: BP 127/71
[2025-03-26] MEDS: DILAUDID 50 IV (23:33)
[2025-03-27 00:04] VITALS: BP 130/73
[2025-03-27] MEDS: DILAUDID 1 MG IV ×3 (03:41→12:47)
[2025-03-27 07:48] VITALS: BP 113/63
[2025-03-27] MEDS: TYLENOL/FEVERALL 650 MG RECTAL (09:34)
--- NOTE | 2025-03-27 10:01 | HOSPNOTE ---
Patient appears imminent, I supported family and patient will remain on comfort. We will continue to support. The family is requesting that the patient does not go down to the morgue and that the home picker / packer the patient from the room.
Updated floor BURAK Calero.
--- NOTE | 2025-03-27 10:23 | PTCARENOTE ---
Patient unresponsive, apneic, irregular breathing, fever of 103.4F this AM; Dilaudid gtt at step 3 infusing through R AC IV at 1mg/hr. Patient medicated with breakthrough dose of rectal Tylenol, given bed bath. White for end of life draining michael
colored urine. Skin cool, B/L LEs mottled, heels blanchable red and sacrum intact. Family at bedside updated on plan of care.
[2025-03-27] MEDS: ROBINUL 0.2 MG IV (12:48)
--- NOTE | 2025-03-27 13:30 | PTCARENOTE ---
Patient's family came out to nurses station stating to this RN they believe patient stopped breathing. This RN in room to assess patient, no heart or lung sounds on auscultation. Justice antunez MD at bedside.
--- NOTE | 2025-03-27 14:03 | W.PN.DEATH ---
Pronouncement of
-
Called to see patient to pronounce.
No spontaneous heart tones or respirations noted.
Patient not responsive to verbal stimuli.
Patient is pronounced .
Time of : 01:30 (PM)
Date of : 03/27/25
Cause of : Acute CVA
Family Notified: Yes
--- NOTE | 2025-03-27 16:40 | PTCARENOTE ---
Postmortem care provided by this RN and Cindy cordova and IV removed, Dilaudid gtt wasted with second RN. [facility] notified. No belongings at bedside at time of transfer.
== END 2025-03-27 13:30 | disposition expired | DRG 64 ==
LOC: 2 NORTH 04:52
PROVIDERS: Internal Medicine; Nurse Practitioner Family; Nurse Practitioner Gerontology; Physician Assistant; Radiology Diagnostic Radiology; ADMITTING PHYSICIAN Internal Medicine; ATTENDING PHYSICIAN Internal Medicine; CONSULT PHYSICIAN Internal Medicine Cardiovascular Disease; CONSULT PHYSICIAN Internal Medicine Critical Care Medicine; CONSULT PHYSICIAN Psychiatry & Neurology Clinical Neurophysiology; EMERGENCY PHYSICIAN Emergency Medicine
PROC: 0T9B70Z Drainage of Bladder with Drainage Device, Via Natural or Artificial Opening (ICD-10-PCS; 2025-03-20)
PROC: 5A09357 Assistance with Respiratory Ventilation, Less than 24 Consecutive Hours, Continuous Positive Airway Pressure (ICD-10-PCS; 2025-03-22)
PROC: 0DH67UZ Insertion of Feeding Device into Stomach, Via Natural or Artificial Opening (ICD-10-PCS; 2025-03-23)
PROC: 5A0935A Assistance with Respiratory Ventilation, Less than 24 Consecutive Hours, High Flow/Velocity Cannula (ICD-10-PCS; 2025-03-23)
PROC: 0BH17EZ Insertion of Endotracheal Airway into Trachea, Via Natural or Artificial Opening (ICD-10-PCS; 2025-03-23)
PROC: 5A1945Z Respiratory Ventilation, 24-96 Consecutive Hours (ICD-10-PCS; 2025-03-23)
DX: I63.40 Cerebral infarction due to embolism of unspecified cerebral artery (principal); A41.89 Other specified sepsis; J96.01 Acute respiratory failure with hypoxia; J69.0 Pneumonitis due to inhalation of food and vomit; R65.21 Severe sepsis with septic shock; I50.31 Acute diastolic (congestive) heart failure; J13 Pneumonia due to Streptococcus pneumoniae; I48.21 Permanent atrial fibrillation; J90 Pleural effusion, not elsewhere classified; G93.40 Encephalopathy, unspecified; N17.9 Acute kidney failure, unspecified; J98.11 Atelectasis; Z51.5 Encounter for palliative care; G47.30 Sleep apnea, unspecified; E66.9 Obesity, unspecified; I27.20 Pulmonary hypertension, unspecified; R29.810 Facial weakness; R79.1 Abnormal coagulation profile; E78.00 Pure hypercholesterolemia, unspecified; E11.9 Type 2 diabetes mellitus without complications; E78.5 Hyperlipidemia, unspecified; I11.0 Hypertensive heart disease with heart failure; R33.9 Retention of urine, unspecified; Z66 Do not resuscitate; Z86.16 Personal history of COVID-19; Z85.118 Personal history of other malignant neoplasm of bronchus and lung; Z79.01 Long term (current) use of anticoagulants; Z90.2 Acquired absence of lung [part of]; Z87.891 Personal history of nicotine dependence; Z88.5 Allergy status to narcotic agent; Z11.52 Encounter for screening for COVID-19; Z68.36 Body mass index [BMI] 36.0-36.9, adult; Z82.49 Family history of ischemic heart disease and other diseases of the circulatory system; Z80.1 Family history of malignant neoplasm of trachea, bronchus and lung; Z83.3 Family history of diabetes mellitus
CPT/HCPCS: 36600; 70450; 70496; 70498; 70551; 71045; 71250; 74176; 76604; 80048; 80053; 80061; 80306; 81003; 81015; 82140; 82390; 82533; 82607; 82805; 82962; 83036; 83605; 83690; 83735; 83880; 84100; 84443; 84484; 85025; 85027; 85610; 85652; 85730; 86308; 86618; 86780; 86850; 86900; 86901; 87040; 87070; 87086; 87205; 87389; 87449; 87502; 87641; 87811; 87899; 92523; 92526; 92610; 93005; 93306; 94002; 94003; 94640; 96374; 97163; 97167; 97530; 97535; 99285; J1160; Q9967